=== PATIENT | male | born 1935 | race Caucasian/White ===

== ENCOUNTER → 2017-11-22 14:26 | Outpatient (CLI) | payer BC, SELFPAY ==
[2017-11-22 14:37] LABS: Microscopic, Urine URINE MICROSCOPIC (MICROSCOPIC)
[2017-11-22 15:07] LABS: Basophils # 0.1 K/mm3 (0-0.2); Eosinophils # 0.2 K/mm3 (0.0-0.4); Hematocrit 51.3 % (42.0-52.0); Hemoglobin 17.3 g/dL (14.1-18.0); Lymphocytes # 1.9 K/mm3 (0.7-4.5); Lymphocytes % 26.6 K/mm3 (10-50); Mean Corpuscular HGB Conc 33.6 g/dL (31.8-35.4); Mean Corpuscular Hemoglobin 30.3 pg (27.0-31.2); Mean Corpuscular Volume 90.1 fl (80-94); Mean Platelet Volume 7.1 fl (7.4-10.4); Monocytes # 0.8 K/mm3 (0.1-1.0); Neutrophils # 4.2 K/mm3 (1.8-7.8); Neutrophils % 58.3 % (37.0-80.0); Platelet Count 296 K/mm3 (142-424); Red Cell Distribution Width 12.8 % (11.5-17.5); White Blood Count 7.2 K/mm3 (4.8-10.8)
[2017-11-22 16:08] LABS: Alanine Aminotransferase 35 U/L (12-78); Albumin Level 3.8 gm/dL (3.4-5.0); Albumin/Globulin Ratio 0.9 (1.1-1.8); Alkaline Phosphatase 98 U/L (46-116); Anion Gap 15.8 mEq/L (5-15); Aspartate Amino Transferase 30 U/L (15-37); Bilirubin,Total 0.4 mg/dL (0.2-1.0); Blood Urea Nitrogen 25 mg/dL (7-18); Calcium 8.8 mg/dL (8.5-10.1); Carbon Dioxide 26 mmol/L (21.0-32.0); Chloride 100 mmol/L (98-107); Creatinine,Serum 1.91 mg/dL (0.70-1.30); Estimated Glomerular Filt Rate 34 ml/min (>60); GFR (African American) 41 ML/MIN (>60); Globulin 4.3 gm/dl (1.3-3.2); Glucose 94 mg/dL (74-106); Potassium 3.8 mmoL/L (3.5-5.1); Sodium 138 mmol/L (136-145); Thyroid Stimulating Hormone 4.36 uIU/ml (0.358-3.740); Total Protein,Serum 8.1 gm/dL (6.4-8.2)
[2017-11-22 16:29] LABS: Appearance,Urine CLEAR (Clear); Bilirubin,Urine Negative (Negative); Blood, Urine TRACE-L (Negative); Color,Urine YELLOW (Yellow); Glucose,Urine (UA) Negative (Negative); Ketones,Urine Negative (Negative); Leukocyte Esterase,Urine Negative (Negative); Nitrate,Urine Negative (Negative); PH,Urine 6.5 (5.0-8.5); Protein,Urine TRACE (Negative); Urobilinogen,Urine 0.2 EU/dl (0.2)
[2017-11-22 17:29] LABS: RBC,Urine Occasional #/hpf (0-3)
[2017-11-22 17:30] LABS: Bacteria,Urine Trace /lpf
[2017-11-22 21:10] LABS: Hemoglobin A1C 5.2 % (0.0-7.0)
[2017-11-25 18:26] LABS: Rapid Plasma Reagin Ab Titer Non Reactive (NonRea<1:1); Vitamin B12 527 pg/mL (232-1245)
== END ==
PROVIDERS: PCP Internal Medicine Adolescent Medicine; Visit Provider Internal Medicine Adolescent Medicine
DX: R60.9 Edema, unspecified (principal); G60.9 Hereditary and idiopathic neuropathy, unspecified
CPT/HCPCS: 36415; 80053; 81001; 82607; 83036; 84443; 85025; 86592

== ENCOUNTER → 2017-11-30 09:40 | Outpatient (CLI) | payer BC, SELFPAY ==
[2017-11-30 10:09] LABS: Basophils # 0.1 K/mm3 (0-0.2); Basophils % 1.1 % (0.1-2.0); Eosinophils # 0.2 K/mm3 (0.0-0.4); Eosinophils % 3.4 % (0.1-12.0); Hematocrit 50.6 % (42.0-52.0); Hemoglobin 16.9 g/dL (14.1-18.0); Lymphocytes # 1.7 K/mm3 (0.7-4.5); Lymphocytes % 23.7 K/mm3 (10-50); Mean Corpuscular HGB Conc 33.4 g/dL (31.8-35.4); Mean Corpuscular Hemoglobin 29.9 pg (27.0-31.2); Mean Corpuscular Volume 89.3 fl (80-94); Mean Platelet Volume 6.8 fl (7.4-10.4); Monocytes # 0.6 K/mm3 (0.1-1.0); Monocytes % 8.3 % (1.7-9.3); Neutrophils # 4.5 K/mm3 (1.8-7.8); Neutrophils % 63.6 % (37.0-80.0); Platelet Count 287 K/mm3 (142-424); Red Blood Count 5.67 M/mm3 (4.60-6.20); Red Cell Distribution Width 12.8 % (11.5-17.5); White Blood Count 7.1 K/mm3 (4.8-10.8)
[2017-11-30 11:02] LABS: Alanine Aminotransferase 34 U/L (12-78); Albumin Level 3.9 gm/dL (3.4-5.0); Alkaline Phosphatase 105 U/L (46-116); Anion Gap 12.4 mEq/L (5-15); Aspartate Amino Transferase 27 U/L (15-37); Bilirubin,Total 0.5 mg/dL (0.2-1.0); Blood Urea Nitrogen 15 mg/dL (7-18); Calcium 9.1 mg/dL (8.5-10.1); Carbon Dioxide 28 mmol/L (21.0-32.0); Chloride 101 mmol/L (98-107); Chol/HDL Ratio 4.3 (1-3.5); Cholesterol 222 mg/dL (140-200); Creatinine,Serum 1.16 mg/dL (0.70-1.30); Estimated Glomerular Filt Rate 60 ml/min (>60); GFR (African American) 73 ML/MIN (>60); Glucose 109 mg/dL (74-106); HDL Cholesterol 52 mg/dL (27-67); LDL Cholesterol 140 mg/dL (0-130); Potassium 4.4 mmoL/L (3.5-5.1); Sodium 137 mmol/L (136-145); Total Protein,Serum 7.9 gm/dL (6.4-8.2); Triglycerides 152 mg/dL (30-200); VLDL Cholesterol 30 mg/dL (0-40)
[2017-11-30 11:48] LABS: Creatinine,Serum 1.11 mg/dL (0.70-1.30)
[2017-11-30 13:49] LABS: Collection Time,Urine 24 hours; Creatinine 24 Hour,Urine 1840 mg/24hr (630-2500); Creatinine Clearance Urine 84.5 mL/min (85-125); Creatinine,Urine Random 80 mg/dL (20-320); Patient Height,Urine 73; Patient Weight,Urine 250; Total Protein 24 Hour,Urine 582 mg/24 hr (40-90); Total Protein,Urine Random 25.3 mg/dL (0.0-11.9); Total Volume,Urine 2300 mL (250-2400)
== END ==
PROVIDERS: Visit Provider Internal Medicine Adolescent Medicine
DX: N28.9 Disorder of kidney and ureter, unspecified (principal); E78.01 Familial hypercholesterolemia; I10 Essential (primary) hypertension
CPT/HCPCS: 36415; 80053; 80061; 82575; 84155; 85025

== ENCOUNTER → 2018-06-18 09:03 | Outpatient (CLI) | payer BC, MEDICARE, SELFPAY ==
[2018-06-18 09:31] LABS: Blood Urea Nitrogen 24 mg/dL (7-18); Creatinine,Serum 1.39 mg/dL (0.70-1.30); Estimated Glomerular Filt Rate 49 ml/min (>60); GFR (African American) 59 ML/MIN (>60)
--- NOTE | 2018-06-18 10:21 | CT_ITS ---
CT abdomen wo/w con CLINICAL INDICATION: Left renal mass ITS.REASON: RENAL MASS ORDERING PHYSICIAN: Champ Ellis PATIENT AGE: 82 years No previous exams are available for comparison TECHNIQUE: Axial images obtained without and with contrast with sagittal and coronal reformats. All CT scans at the facility use one or more dose reduction, viz: automated exposure control, ma/kV adjustment per patient size (including targeted exams where dose is matched to indication, i.e. head), or iterative reconstruction technique. PROCEDURE: Oral Contrast: None IV Contrast: 75 mL of Isovue-370. FINDINGS: There are coronary artery calcifications. Lung bases are clear. CT abdomen pelvis performed without and with contrast. Immediate and 10 minute delayed images obtained postcontrast infusion. The liver, gallbladder, spleen, pancreas, and adrenal glands have an unremarkable appearance. There is a hyperdense nodule of the right kidney a 9 mm consistent with a hyperdense cyst. A 4.7 cm isodensity projects off the posterior aspect of the right kidney consistent with a renal cyst. There is an additional cyst projecting off the superior posterior aspect of the right kidney at 9 mm. On the left there is a 1.8 cm isodense nodule superiorly consistent with a cyst and a 1.5 center exophytic isodensity posteriorly consistent with a cyst. In addition, there is a hyperdense nodule projecting off the posterior aspect of the left kidney at 1 cm measuring without significant enhancement may be related to hyperdense cyst. In addition, there is an isodense nodule projecting off of the lower pole the left kidney posteriorly showing heterogeneous contrast enhancement. This measures 1.9 cm. And is suspicious for neoplasm. No evidence of hydronephrosis or renal or ureteral calculi. No intestinal obstruction or free air. The intervening cava has an unremarkable appearance. No retroperitoneal adenopathy. There are a few small lymph nodes. These are less than 1 cm short axis. There is mild nodularity of the right adrenal gland nonspecific. No acute bony findings. IMPRESSION: 1. Solid-appearing 1.9 cm mass projecting off the lower pole left kidney suspicious for neoplasm. 2. Bilateral renal cysts
== END ==
PROVIDERS: Family Provider Family Medicine; PCP Internal Medicine Adolescent Medicine; Visit Provider Internal Medicine
DX: N18.3 Chronic kidney disease, stage 3 (moderate) (principal)
CPT/HCPCS: 36415; 74170; 82565; 84520; Q9967

== ENCOUNTER → 2018-06-25 08:02 | Outpatient (CLI) | payer BC, MEDICARE, SELFPAY ==
[2018-06-25 08:09] LABS: Microscopic, Urine URINE MICROSCOPIC (MICROSCOPIC)
[2018-06-25 08:45] LABS: Basophils # 0.1 K/mm3 (0-0.2); Basophils % 1.1 % (0.1-2.0); Eosinophils # 0.2 K/mm3 (0.0-0.4); Eosinophils % 2.9 % (0.1-12.0); Hematocrit 51.3 % (42.0-52.0); Hemoglobin 16.7 g/dL (14.1-18.0); Lymphocytes # 1.5 K/mm3 (0.7-4.5); Lymphocytes % 21.3 K/mm3 (10-50); Mean Corpuscular HGB Conc 32.6 g/dL (31.8-35.4); Mean Corpuscular Hemoglobin 29.4 pg (27.0-31.2); Mean Corpuscular Volume 90.4 fl (80-94); Mean Platelet Volume 6.8 fl (7.4-10.4); Monocytes # 0.7 K/mm3 (0.1-1.0); Monocytes % 10.2 % (1.7-9.3); Neutrophils # 4.5 K/mm3 (1.8-7.8); Neutrophils % 64.5 % (37.0-80.0); Platelet Count 290 K/mm3 (142-424); Red Blood Count 5.67 M/mm3 (4.60-6.20); Red Cell Distribution Width 13.3 % (11.5-17.5)
[2018-06-25 09:21] LABS: Appearance,Urine CLEAR (Clear); Bilirubin,Urine Negative (Negative); Blood, Urine Negative (Negative); Color,Urine YELLOW (Yellow); Glucose,Urine (UA) Negative (Negative); Ketones,Urine Negative (Negative); Leukocyte Esterase,Urine Negative (Negative); Nitrate,Urine Negative (Negative); Protein,Urine 1+ (Negative); Specific Gravity, Urine 1.025 (1.005-1.030); Urobilinogen,Urine 0.2 EU/dl (0.2)
[2018-06-25 09:28] LABS: Creatinine,Urine Random 277 mg/dL (20-320); Total Protein,Urine Random 61.7 mg/dL (0.0-11.9)
[2018-06-25 09:31] LABS: Bacteria,Urine 1+ /lpf; Squamous Epithelial Cell,Urine Occasional #/hpf (0-5); WBC,Urine Occasional #/hpf (0-3)
[2018-06-25 09:44] LABS: Albumin Level 3.6 gm/dL (3.4-5.0); Anion Gap 12.5 mEq/L (5-15); Blood Urea Nitrogen 25 mg/dL (7-18); Carbon Dioxide 27 mmol/L (21.0-32.0); Chloride 107 mmol/L (98-107); Creatinine,Serum 1.16 mg/dL (0.70-1.30); Estimated Glomerular Filt Rate 60 ml/min (>60); GFR (African American) 73 ML/MIN (>60); Glucose 101 mg/dL (74-106); Phosphorous 3.6 mg/dL (2.4-4.9); Potassium 4.5 mmoL/L (3.5-5.1); Sodium 142 mmol/L (136-145)
[2018-06-26 08:52] LABS: Vitamin D 25 Hydroxy 31.6 ng/mL (30.0-100.0)
[2018-06-27 13:07] LABS: Parathyroid Hormone Intact 42 pg/mL (15-65)
== END ==
PROVIDERS: PCP Internal Medicine Adolescent Medicine; Visit Provider Internal Medicine
DX: R80.9 Proteinuria, unspecified (principal)
CPT/HCPCS: 36415; 80069; 81001; 82570; 82652; 83970; 84155; 85025

== ENCOUNTER → 2018-06-29 12:38 | Outpatient (CLI) | payer BC, SELFPAY ==
--- NOTE | 2018-06-29 12:47 | XR_ITS ---
XR chest 2V HISTORY: ITS.REASON: LT KIDNEY MASS ORDERING PHYSICIAN: Kelvin Mcallister MD PATIENT AGE: 82 years COMPARISON: None FINDINGS: Unremarkable cardiovascular structures. No lobar consolidation or collapse is evident. There are mild atelectatic or fibrotic changes in the left lung base. There is a faint nodular opacity in the left suprahilar region at 6 mm and may be due to a granuloma. The remaining lungs are clear. No acute bony anomalies. IMPRESSION: 1. No acute finding. 2. Left suprahilar nodule possibly related to granuloma or overlapping vessel. Consider follow-up to confirm stability in this patient with a renal mass
== END ==
PROVIDERS: PCP Internal Medicine Adolescent Medicine; Visit Provider Internal Medicine Adolescent Medicine
DX: N28.89 Other specified disorders of kidney and ureter (principal)
CPT/HCPCS: 71046

== ENCOUNTER → 2019-01-17 08:54 | Outpatient (CLI) | payer BC, SELFPAY ==
[2019-01-17 09:53] LABS: Basophils # 0.1 K/mm3 (0-0.2); Basophils % 1.3 % (0.1-2.0); Eosinophils # 0.2 K/mm3 (0.0-0.4); Eosinophils % 3.4 % (0.1-12.0); Hematocrit 50.3 % (42.0-52.0); Hemoglobin 16.6 g/dL (14.1-18.0); Lymphocytes # 1.5 K/mm3 (0.7-4.5); Lymphocytes % 22.4 % (10-50); Mean Corpuscular Hemoglobin 29.4 pg (27.0-31.2); Mean Corpuscular Volume 89.3 fl (80-94); Mean Platelet Volume 6.8 fl (7.4-10.4); Monocytes # 0.6 K/mm3 (0.1-1.0); Monocytes % 9.5 % (1.7-9.3); Neutrophils # 4.1 K/mm3 (1.8-7.8); Neutrophils % 63.4 % (37.0-80.0); Platelet Count 265 K/mm3 (142-424); Red Blood Count 5.64 M/mm3 (4.60-6.20); Red Cell Distribution Width 13.3 % (11.5-17.5); White Blood Count 6.5 K/mm3 (4.8-10.8)
[2019-01-17 11:11] LABS: Alanine Aminotransferase 29 U/L (12-78); Albumin Level 3.8 gm/dL (3.4-5.0); Alkaline Phosphatase 108 U/L (46-116); Anion Gap 15.2 mEq/L (5-15); Aspartate Amino Transferase 23 U/L (15-37); Bilirubin,Total 0.8 mg/dL (0.2-1.0); Blood Urea Nitrogen 21 mg/dL (7-18); Calcium 8.7 mg/dL (8.5-10.1); Carbon Dioxide 25 mmol/L (21.0-32.0); Chloride 106 mmol/L (98-107); Creatinine,Serum 1.21 mg/dL (0.70-1.30); Estimated Glomerular Filt Rate 57 ml/min (>60); GFR (African American) 69 ML/MIN (>60); Globulin 3.8 gm/dl (1.3-3.2); Glucose 102 mg/dL (74-106); Lactate Dehydrogenase 225 U/L (82-234); Magnesium 2.3 mg/dL (1.4-2.2); Potassium 4.2 mmoL/L (3.5-5.1); Sodium 142 mmol/L (136-145); Total Protein,Serum 7.6 gm/dL (6.4-8.2)
== END ==
PROVIDERS: Visit Provider Internal Medicine Medical Oncology
DX: N28.89 Other specified disorders of kidney and ureter (principal)
CPT/HCPCS: 36415; 80053; 83615; 83735; 85025

== ENCOUNTER → 2019-01-18 10:00 | Outpatient (CLI) | payer BC, SELFPAY ==
--- NOTE | 2019-01-18 10:09 | CT_ITS ---
CT abdomen pelvis wo/w con CLINICAL INDICATION: Follow-up renal mass ITS.REASON: RENAL MASS ORDERING PHYSICIAN: Kelvin Mcallister MD PATIENT AGE: 83 years COMPARISON: None TECHNIQUE: Axial images obtained without and with contrast with sagittal and coronal reformats. All CT scans at the facility use one or more dose reduction, viz: automated exposure control, ma/kV adjustment per patient size (including targeted exams where dose is matched to indication, i.e. head), or iterative reconstruction technique. PROCEDURE: Oral Contrast: None IV Contrast: 75 mL of Omnipaque 350. FINDINGS: This report was delayed waiting appropriate surgical history which is not been made available as of the reading. Radiology requisition mentions that the patient has had a prior surgery on the left kidney . Please correlate with patient's surgical history. No acute finding in the lung bases. Coronary artery calcifications are present and there is thickening of the distal esophagus consistent with reflux esophagitis with small amount air in the distal esophagus. The liver, spleen, adrenal glands, and pancreas have an unremarkable appearance. Right kidney: 4.7 cm renal cyst noted posteriorly. Hyperdense nodule is present in the right kidney superiorly at 1 cm. On the left there is an isodense nodule in the superior pole which measures 2 cm consistent with a renal cyst and exophytic nodule in the mid aspect of the left kidney laterally a 1 cm also consistent with a cyst and a solid appearing nodule in the lower portion of left kidney posteriorly measuring 17 mm suspicious for neoplasm.. Previously this showed more contrast enhancement and was more dense than on today's exam. There is some minimal stranding of the perinephric fat at this area. No periaortic adenopathy. The renal vein has an unremarkable appearance on the left. No pelvic mass abnormal fluid collection or focal inflammatory change evident. There is a small left inguinal hernia which contains fat. No acute bony findings. IMPRESSION: 1. Reported delayed weight on specific surgical history which has not been made available. 2. Solid-appearing left renal mass on the lower pole is slightly smaller than when compared to the previous study at 1.5 x 1.5 cm in the axial plane previously 1.9 x 1.7 cm. There is some minimal stranding of the perinephric renal at this area. 3. Bilateral renal cysts.
--- NOTE | 2019-01-18 11:15 | CT_ITS ---
CT chest wo/w con HISTORY: Left renal mass ITS.REASON: RENAL MASS ORDERING PHYSICIAN: Kelvin Mcallister MD PATIENT AGE: 83 years COMPARISON: None Technique: Axial images obtained. Sagittal, and coronal reformatted images are also generated and reviewed. All CT scans at the facility use one or more dose reduction, viz: automated exposure control, ma/kV adjustment per patient size (including targeted exams where dose is matched to indication, i.e. head), or iterative reconstruction technique. Examination performed without and with contrast. 75 mL Omnipaque 350 utilized IV. FINDINGS: Scattered small nodes are present in the axilla. Atherosclerotic changes involve the thoracic aorta and great vessels with calcification noted. Dense coronary artery calcification and/or stents noted. Normal heart size without pericardial effusion. There is a 10 x 7 mm noncalcified nodule in the right upper lobe posteriorly series 4 #20. These nodules well-circumscribed. A calcified nodule is present in the right lower lobe along major fissure. There is a 1.5 x 0.9 cm lobulated nodule in the right perihilar region which abuts the major fissure best seen on series 8 image #44. Possibly related to a fissural lymph node. Suggest 3 month follow-up for confirmation in this patient with history of renal mass. Remaining lungs are clear. No evidence of aortic aneurysm or dissection. No central pulmonary embolus. No acute bony findings. There are mild degenerative changes in the spine. There is mild thickening of the distal esophagus which could be due to esophagitis. IMPRESSION: 1. 10 x 7 mm noncalcified right upper lobe nodule and 1.5 x 0.9 cm lobulated nodule in the right perihilar region abutting the major fissure . Suggest 3 month follow-up to confirm stability. PET/CT may also be of further value. 2. Coronary artery disease. 3. Otherwise negative CT chest
== END ==
PROVIDERS: PCP Internal Medicine Adolescent Medicine; Visit Provider Internal Medicine Adolescent Medicine
DX: N28.89 Other specified disorders of kidney and ureter (principal)
CPT/HCPCS: 71270; 74178

== ENCOUNTER → 2019-07-13 08:46 | Outpatient (CLI) | payer BC, SELFPAY ==
[2019-07-13 09:42] LABS: Basophils # 0.1 K/mm3 (0-0.2); Basophils % 0.9 % (0.1-2.0); Eosinophils # 0.2 K/mm3 (0.0-0.4); Eosinophils % 2.7 % (0.1-12.0); Hematocrit 49.4 % (42.0-52.0); Lymphocytes # 1.3 K/mm3 (0.7-4.5); Lymphocytes % 20.2 % (10-50); Mean Corpuscular HGB Conc 32.4 g/dL (31.8-35.4); Mean Corpuscular Hemoglobin 30.2 pg (27.0-31.2); Mean Corpuscular Volume 93.4 fl (80-94); Mean Platelet Volume 7.2 fl (7.4-10.4); Monocytes # 0.7 K/mm3 (0.1-1.0); Monocytes % 10.3 % (1.7-9.3); Neutrophils # 4.4 K/mm3 (1.8-7.8); Neutrophils % 65.9 % (37.0-80.0); Platelet Count 278 K/mm3 (142-424); Red Blood Count 5.29 M/mm3 (4.60-6.20); White Blood Count 6.6 K/mm3 (4.8-10.8)
[2019-07-13 12:05] LABS: Alanine Aminotransferase 24 U/L (12-78); Albumin Level 3.5 gm/dL (3.4-5.0); Alkaline Phosphatase 108 U/L (46-116); Anion Gap 15.9 mEq/L (5-15); Aspartate Amino Transferase 18 U/L (15-37); Bilirubin,Total 0.7 mg/dL (0.2-1.0); Blood Urea Nitrogen 14 mg/dL (7-18); Calcium 9.2 mg/dL (8.5-10.1); Carbon Dioxide 26 mmol/L (21.0-32.0); Chloride 106 mmol/L (98-107); Chol/HDL Ratio 5.2 (1-3.5); Cholesterol 224 mg/dL (140-200); Creatinine,Serum 1.13 mg/dL (0.70-1.30); Estimated Glomerular Filt Rate 62 ml/min (>60); Free Thyroxine Index 3.6 ug/dL (5.93-13.13); GFR (African American) 75 ML/MIN (>60); Globulin 3.5 gm/dl (1.3-3.2); Glucose 96 mg/dL (74-106); HDL Cholesterol 43 mg/dL (27-67); LDL Cholesterol 150 mg/dL (0-130); Potassium 4.9 mmoL/L (3.5-5.1); Sodium 143 mmol/L (136-145); T4 (Thyroxine) 10.2 ug/dl (4.7-13.3); Thyroid Stimulating Hormone 1.89 uIU/ml (0.358-3.740); Triglycerides 156 mg/dL (30-200); Triiodothryronine (T3) Uptake 35 % (31-39); VLDL Cholesterol 31 mg/dL (0-40)
[2019-07-16 09:27] LABS: Vitamin B12 303 pg/mL (232-1245)
== END ==
PROVIDERS: Visit Provider Internal Medicine Adolescent Medicine
DX: E78.01 Familial hypercholesterolemia (principal); G60.9 Hereditary and idiopathic neuropathy, unspecified; Z85.528 Personal history of other malignant neoplasm of kidney
CPT/HCPCS: 36415; 80053; 80061; 82607; 84436; 84443; 84479; 85025

== ENCOUNTER → 2019-07-19 09:58 | Outpatient (CLI) | payer BC, SELFPAY ==
--- NOTE | 2019-07-19 10:00 | CT_ITS ---
PROCEDURE: CT SOFT TISSUE NECK W CON CLINICAL HISTORY: NECK MASS, HX RENAL CANCER COMPARISON: No exams were available for comparison TECHNIQUE: Oral Contrast: 75ml Optiray 350 IV Contrast: None Axial images obtained with sagittal and coronal reformats. All CT scans at the facility use one or more dose reduction, viz: automated exposure control, ma/kV adjustment per patient size (including targeted exams where dose is matched to indication, i.e. head), or iterative reconstruction technique. FINDINGS: There are scattered small cervical lymph nodes. No dominant adenopathy. The nasopharynx, oropharynx, hypopharynx are unremarkable. Unremarkable appearing epiglottis. There is retropharyngeal location of the left external carotid artery causing some indentation on the posterior aspect of the hypopharynx. A BB is placed there is a gastric air corresponding to the palpable abnormality. At this region there is a 6.6 x 1.7 x 5.9cm lipoma. Small nodules are noted in the thyroid gland.. Degenerative changes cervical spine. IMPRESSION: [place] abnormality in the left neck corresponds to a lipoma Dictated by: Gil Mcfarlane MD 07/21/2019 08:52 Electronically signed by Gil Mcfarlane MD in [place] 07/21/2019 08:52
== END ==
PROVIDERS: PCP Internal Medicine Adolescent Medicine; Visit Provider Internal Medicine Adolescent Medicine
DX: R22.1 Localized swelling, mass and lump, neck (principal); Z85.528 Personal history of other malignant neoplasm of kidney
CPT/HCPCS: 70491; Q9967

== ENCOUNTER → 2019-08-16 10:49 | Outpatient (CLI) | payer BC, SELFPAY ==
[2019-08-16 12:23] LABS: Blood Urea Nitrogen 22 mg/dL (7-18); Creatinine,Serum 1.25 mg/dL (0.70-1.30); Estimated Glomerular Filt Rate 55 ml/min (>60); GFR (African American) 67 ML/MIN (>60)
== END ==
PROVIDERS: Visit Provider Internal Medicine Adolescent Medicine
DX: Z85.528 Personal history of other malignant neoplasm of kidney (principal)
CPT/HCPCS: 36415; 82565; 84520

== ENCOUNTER → 2019-08-19 09:34 | Outpatient (CLI) | payer BC, SELFPAY ==
--- NOTE | 2019-08-19 09:39 | CT_ITS ---
PROCEDURE: CT CHEST W CON CLINCAL INDICATION: HX RENAL CA Follow-up renal cell carcinoma the COMPARISON: ABDWW CT abdomen wo/w con from 06/18/[address] chest wo/w con from 01/18/2019 CT ABDOMEN PELVIS WO/W CON from 08/19/2019 TECHNIQUE: IV Contrast: 75ml Optiray 350 Axial images obtained with sagittal and coronal reformats. All CT scans at the facility use one or more dose reduction, viz: automated exposure control, ma/kV adjustment per patient size (including targeted exams where dose is matched to indication, i.e. head), or iterative reconstruction technique. FINDINGS: HEART,AORTA,PULMONARY ARTERIES extensive coronary artery calcification is noted. MEDIASTINAL AND HILAR STRUCTURES: No mediastinal or hilar mass evident. No dominant adenopathy. LUNGS: There is a stable 7 mm nodule in the posterior segment of the right upper lobe. This may contain a small central calcification. There is a stable 13 x 8 mm nodular opacity in the right perihilar region. No new nodules are evident. There are some faint small 1-2 mm opacities in the right middle lobe probably not significantly changed PLEURAL SPACES: No significant effusion. No evidence of pneumothorax. BONY STRUCTURES: No acute bony abnormalities apparent. LYMPH NODES: No enlarged lymph nodes evident. UPPER ABDOMEN: Please see abdomen CT report ADDITIONAL FINDINGS: No other significant abnormalities. IMPRESSION: Stable right upper lobe and right perihilar nodules. Possibly related to old granulomatous disease and a lymph node in the right perihilar region. Continued follow-up recommended. No new nodules evident. Extensive coronary artery calcification Dictated by: Gil Mcfarlane MD 08/19/2019 13:53 Electronically signed by Gil Mcfarlane MD in [facility] 08/19/2019 13:53
--- NOTE | 2019-08-19 09:40 | CT_ITS ---
PROCEDURE: CT ABDOMEN PELVIS WO/W CON CLINICAL INDICATION: HX RENAL CANCER Follow-up renal cell carcinoma COMPARISON: ABDWW CT abdomen wo/w con from 06/18/[address] abdomen pelvis wo/w con from 01/18/2019 TECHNIQUE: IV Contrast: 75ML OPTIRAY 350 Oral Contrast 450ml Redicat Axial images obtained with sagittal and coronal reformats. All CT scans at the facility use one or more dose reduction, viz: automated exposure control, ma/kV adjustment per patient size (including targeted exams where dose is matched to indication, i.e. head), or iterative reconstruction technique. FINDINGS: LOWER THORAX: Please see chest CT report ABDOMEN & PELVIS: The liver, spleen, pancreas, and adrenal glands have an unremarkable appearance. There are bilateral renal cysts largest on the right measuring up to 4.9 cm. In the lower pole of the left kidney, there is a complex lesion having both fat and soft tissue density with a thin peripheral area density noted. This measures 3 x 1.9 cm previously 3.3 x 2.2 cm. This may represent some postsurgical change as there is a given history of prior surgery on the left kidney. Previously on 06/18/2018 there was a solid nodule at this area. The central soft tissue component of this lesion appears somewhat smaller than when compared to the previous exam of 01/18/2019. No retroperitoneal adenopathy. There is a small umbilical hernia which contains fat. There is a mild amount of retained colonic feces. The prostate is enlarged at 6.4 cm. There are mild degenerative changes in the lumbar spine. IMPRESSION: 1. Complex lesion involving the lower pole of the left kidney posteriorly slightly less apparent compared to the previous study. The central soft tissue component is also slightly less apparent. This may represent some postsurgical changes. Please correlate with surgical history. 2. Enlarged prostate. 3. Otherwise negative CT of the abdomen and pelvis other than small bilateral renal cysts and mild amount of retained colonic feces. Dictated by: Gil Mcfarlane MD 08/19/2019 14:05 Electronically signed by Gil Mcfarlane MD in [facility] 08/19/2019 14:05
== END ==
PROVIDERS: PCP Internal Medicine Adolescent Medicine; Visit Provider Internal Medicine Adolescent Medicine
DX: Z85.528 Personal history of other malignant neoplasm of kidney (principal)
CPT/HCPCS: 71260; 74178; Q9967

== ENCOUNTER → 2020-06-10 13:14 | Outpatient (CLI) | payer BC, SELFPAY ==
[2020-06-10 14:26] LABS: Basophils # 0.1 K/mm3 (0-0.2); Basophils % 1.2 % (0.1-2.0); Eosinophils # 0.2 K/mm3 (0.0-0.4); Eosinophils % 2.9 % (0.1-12.0); Hemoglobin 16.9 g/dL (14.1-18.0); Lymphocytes # 1.7 K/mm3 (0.7-4.5); Lymphocytes % 22.7 % (10-50); Mean Corpuscular HGB Conc 35.3 g/dL (31.8-35.4); Mean Corpuscular Hemoglobin 30.9 pg (27.0-31.2); Mean Corpuscular Volume 87.5 fl (80-94); Mean Platelet Volume 7.3 fl (7.4-10.4); Monocytes # 0.9 K/mm3 (0.1-1.0); Monocytes % 11.2 % (1.7-9.3); Neutrophils # 4.7 K/mm3 (1.8-7.8); Platelet Count 275 K/mm3 (142-424); Red Blood Count 5.48 M/mm3 (4.60-6.20); Red Cell Distribution Width 13.5 % (11.5-17.5); White Blood Count 7.6 K/mm3 (4.8-10.8)
[2020-06-10 16:15] LABS: Chloride 105 mmol/L (98-107); Potassium 4.7 mmoL/L (3.5-5.1); Sodium 139 mmol/L (136-145)
[2020-06-10 16:17] LABS: Blood Urea Nitrogen 18 mg/dl (9-20); Estimated Glomerular Filt Rate 64 ml/min (>60); GFR (African American) 77 ML/MIN (>60)
[2020-06-10 16:18] LABS: Alanine Aminotransferase 16 U/L (12-78); Albumin Level 3.9 g/dl (3.5-5.0); Albumin/Globulin Ratio 1.3 (1.1-1.8); Alkaline Phosphatase 84 U/L (38-126); Anion Gap 11.7 mEq/L (5-15); Aspartate Amino Transferase 29 U/L (17-59); Bilirubin,Total 0.6 mg/dl (0.2-1.3); Calcium 9.2 mg/dl (8.4-10.2); Carbon Dioxide 27 mmol/L (22.0-30.0); Chol/HDL Ratio 4.3 (1-3.5); Cholesterol 211 mg/dl (140-200); Glucose 86 mg/dl (74-100); HDL Cholesterol 49 mg/dl (40-60); Total Protein,Serum 6.9 g/dl (6.3-8.2); Triglycerides 117 mg/dl (30-150); VLDL Cholesterol 23 mg/dL (0-40)
[2020-06-10 16:30] LABS: Direct LDL Cholesterol 141.45 mg/dL (100-129)
[2020-06-10 16:49] LABS: Thyroid Stimulating Hormone 2.37 uIU/mL (0.465-4.68)
== END ==
PROVIDERS: Visit Provider Internal Medicine Adolescent Medicine
DX: E78.01 Familial hypercholesterolemia (principal); G60.9 Hereditary and idiopathic neuropathy, unspecified
CPT/HCPCS: 36415; 80053; 80061; 84443; 85025

== ENCOUNTER 2020-10-14 18:00 | Inpatient (IN) | payer MEDICARE, BC, SELFPAY ==
[2020-10-14] VITALS (18 sets, daily range): BP systolic 108–139; BP diastolic 53–76; PULSE 66–84; RESP 14–16; TEMP 36.6–36.9; O2SAT 90–98; BMI 31.2; BMI 33.9; BMI 33.7
--- NOTE | 2020-10-14 | IR_ITS ---
APPROVED REPORT Patient Location: Emergent Felt Hat Steamer: SINGH Elkins RT (R) PROCEDURES Right heart catheterization Left heart catheterization Left ventriculogram Selective coronary angiogram Drug-eluting stent deployment to the proximal and mid LAD Drug-eluting stent deployment to the distal LAD Drug-eluting stent deployment to the first diagonal artery Catheter placement in the pulmonary artery Bilateral pulmonary artery angiogram INDICATION Acute anterior ST elevation myocardial infarction, Coronary artery disease, Hypoxemia, Acidemia, Suspected pulmonary embolism, Syncope Informed consent was obtained prior to the procedure. COMPLICATIONS none Estimated Blood Loss: less than 10 mls TECHNIQUE One percent lidocaine used to anesthetize the right anterior aspect of the wrist. The right radial artery was accessed via the Seldinger technique. A 6 [place] sheath was placed in the right radial artery. 2.5 mg of verapamil, 800 mcg of nitroglycerin, 1mg Lidocaine and 5000 U Heparin were given through the arterial sheath. The [place] catheter was used to perform left heart catheterization left ventriculogram and selective coronary angiogram. Because of the wide QRS which was not classic for a STEMI but looks more like an acidemic EKG a blood gas was immediately obtained from the right radial artery following sheath placement. The initial blood gas was reported and interpreted however close attention was not paid to the electrolytes down below which in retrospect likely was an abnormally obtain dilute arterial blood gas as evidenced by a sodium of 103. Despite the spurious blood gas this was still acted upon and the patient was initially felt to have a metabolic acidosis. Angiography demonstrated a chronically occluded right coronary artery with severe disease throughout the LAD. An EBU 3.75 guide catheter was placed in the left main artery and a Choice PT wire was placed distally. A 2.5 x 12 mm balloon was used to predilate the proximal and mid LAD and a 3.5 x 38 mm resolute [place] stent was deployed at 20 scotty reducing the stenosis. An additional 3.5 x 18 mm resolute [place] stent was then deployed distal to this yet still overlapping it at 18 scotty. The balloon was brought back and deployed at 20 scotty. A wire was then placed in the first diagonal artery which was jailed and a 2 mm balloon was used to open the jailed first diagonal artery. A 2.5 x 12 mm resolute Hai stent was deployed at 24 scotty in the ostial first diagonal artery opening the occluded vessel and restoring flow. A 3.5 x 18 mm balloon was then deployed at 20 scotty adjacent to the first diagonal artery to make sure no struts were encroaching upon the LAD. A Choice PT floppy wire was placed distally in the LAD and a 2.75 x 15 mm resolute [place] stent was deployed at 18 scotty in the distal LAD reducing the severe corkscrew stenosis to 0%. After achieving excellent angiographic results it was decided to repeat the blood gas. Blood gas came back at 7.3 . This demonstrated a significant interval improvement from the first blood gas not recognized as being inaccurate. Given the wide QRS a pulmonary embolism was considered especially with the significant degree of hypoxemia. 1% lidocaine was used anesthetize the right groin and the right femoral vein was accessed via the Salinger technique and a 5 [place] sheath was placed in the right femoral vein. Under fluoroscopic guidance an angled pigtail catheter was placed in the pulmonary artery where angiography was performed demonstrated widely patent pulmonary arteries. A hemodynamic study was then performed in the pulmonary artery right ventricle right atrium. At the end of this procedure and Sigifredo alcala
--- NOTE | 2020-10-14 18:24 | ECG_ITS ---
APPROVED REPORT Exam: Resting ECG HR:68 bpm ECG Measurements Heart Rate 68 AXES AR 248 P 87 QRSd 136 QRS 38 QT 418 T 105 QTc 444 Conclusion Sinus rhythm with 1st degree AV block Nonspecific intraventricular block Cannot rule out Anteroseptal infarct, age undetermined T wave abnormality, consider lateral ischemia Abnormal ECG Electronically signed by : Kelvin Mcallister, 10/15/2020 21:16:42
--- NOTE | 2020-10-14 18:26 | PC.NURSE ---
STEMI alert called at this time
--- NOTE | 2020-10-14 18:35 | XR_ITS ---
PROCEDURE: XR CHEST PORTABLE CLINICAL HISTORY: syncope Chest pain COMPARISON: CR CXR2V XR chest 2V from 06/29/[address] CHEST W CON from 08/19/2019 FINDINGS: There are low lung volumes with mild cardiomegaly. The lungs are clear without infiltrates, suspicious nodules, or pleural effusions. No acute bony abnormalities. IMPRESSION: Low lung volumes otherwise negative Dictated by: Gil Mcfarlane MD 10/15/2020 05:49 Gil Mcfarlane MD in [place] 10/15/2020 05:49
--- NOTE | 2020-10-14 18:35 | [facility].EDGENADL ---
ED Disposition Clinical Impression: Abnormal EKG Syncope Qualifiers: Syncope type: unspecified Qualified Code(s): R55 - Syncope and collapse Disposition: Still a Patient Condition on Discharge: Fair Referrals: Kelvin Mcallister MD [Primary Care Provider] - - Critical Care Critical Care Time: No Attestation: On 10/14/20, the high probability of a clinically significant, sudden or life threatening deterioration of the following system(s) required my full and direct attention, intervention and personal management. The time I documented below is in addition to time spent performing reported procedures but includes the following listed in this critical care notation. Medical Decision Making - Lux Inquiry Pt receiving controlled substance: No - Lab Data Lab Results 10/14/20 18:25: WBC 11.8 H, RBC 5.76, Hgb 17.2, Hct 52.3 H, MCV 90.8, MCH 30.0, MCHC 33.0, RDW 13.3, Plt Count 276, MPV 6.8 L, Neut % (Auto) 83.2 H, Lymph % (Auto) 8.0 L, [place] % (Auto) 7.1, Eos % (Auto) 1.1, Baso % (Auto) 0.6, Neut # (Auto) 9.8 H, Lymph # (Auto) 0.9, [place] # (Auto) 0.8, Eos # (Auto) 0.1, Baso # (Auto) 0.1 10/14/20 18:25: Sodium 140, Potassium 4.0, Chloride 105, Carbon Dioxide 29, Anion Gap 10.0, BUN 27 H, Creatinine 1.20, Estimated Creat Clear 73, Estimated GFR 58 L, Est GFR ( Amer) 70, Glucose 131 H, Calcium 9.7 Result diagrams: 10/14/20 18:25 10/14/20 18:25 Orders (Tests/Meds): ED MEDICATIONS Discontinued Medications Generic Name Dose Route Start Last Admin Trade Name Freq PRN Reason Stop Dose Admin Heparin Sodium (Porcine) 11,300 unit 10/14/20 18:38 Heparin Sodium 5,000 Unit/Ml Vial 100 unit/kg (44602 unit) 10/14/20 18:39 IV ONCE ONE ORDERS Category Date Time Status XR chest portable Stat Exams 10/14/20 18:35 Taken Basic Metabolic Panel Stat Lab 10/14/20 18:25 Results Covid-19 IgG/IgM ([facility]) Stat Lab 10/14/20 18:25 Received PT/INR [Prothrombin Time INR] Stat Lab 10/14/20 18:25 Received Troponin I Q3H Lab 10/14/20 21:45 Ordered Troponin I Q3H Lab 10/15/20 00:45 Ordered Troponin I Stat Lab 10/14/20 18:25 Results - ECG Data Tracing #1 EKG interpreted by Devon Brady MD: Rhythm: sinus Rate: 68 [place]: normal Ectopy: none Conduction: First-degree AV block ST Segment Changes: Elevation in anterior septal leads and slight depression in the lateral leads. T Wave Changes: Inversion in leads I and aVL Q Waves: Septal/anterior No old EKGs for comparison - Physician Consults Physician Consulted: Ary Time: 18:53 Reason -: Admission Comment/Response: Agrees to admit the patient to the hospital. We discussed the patient's clinical information, including history, exam, laboratory and radiology results and ED course. Per hospital procedure, I will write temporary bridge inpatient orders on the patient. Specific orders requested by the admitting physician: Per cardiology Medical Decision Narrative: EKG sent immediately to Dr. Joe. He reviewed and requests for new alert. There are no old EKGs for comparison. General Adult HPI - General Stated complaint: dizziness Time Seen by Provider: 10/14/20 18:36 - History of Present Illness HPI narrative: Patient says he was just sitting around a couple of hours ago when he got sweaty and nauseated and began vomiting and had a syncopal episode. He says he was not having chest pain or shortness of breath at the time and is not having any chest pain or shortness of breath now. He says he feels good right now. He is not nauseated. His daughter says that after he passed out he came to fairly quickly and family laid him down on the ground. They let him lay there until daughter arrived. He tried to get up but got dizzy again and therefore was brought here. He has a prior history of a slight heart attack 20+ years ago. He has seen Dr. Acosta. He has a prior history of renal cancer which is now in remission. - Related
[2020-10-14 18:49] LABS: Blood Urea Nitrogen 27 mg/dl (9-20); Calcium 9.7 mg/dl (8.4-10.2); Carbon Dioxide 29 mmol/L (22.0-30.0); Chloride 105 mmol/L (98-107); Creatinine Clearance Estimated 73 mL/min (50-200); Estimated Glomerular Filt Rate 58 ml/min (>60); GFR (African American) 70 ML/MIN (>60); Glucose 131 mg/dl (74-100); Sodium 140 mmol/L (136-145)
--- NOTE | 2020-10-14 18:49 | PC.NURSE ---
AFR[place] CARTER speaking with Dr. Mcallister
[2020-10-14 18:52] LABS: Basophils # 0.1 K/mm3 (0-0.2); Basophils % 0.6 % (0.1-2.0); Eosinophils # 0.1 K/mm3 (0.0-0.4); Eosinophils % 1.1 % (0.1-12.0); Hematocrit 52.3 % (42.0-52.0); Hemoglobin 17.2 g/dL (14.1-18.0); Lymphocytes # 0.9 K/mm3 (0.7-4.5); Mean Corpuscular Volume 90.8 fl (80-94); Mean Platelet Volume 6.8 fl (7.4-10.4); Monocytes # 0.8 K/mm3 (0.1-1.0); Monocytes % 7.1 % (1.7-9.3); Neutrophils # 9.8 K/mm3 (1.8-7.8); Neutrophils % 83.2 % (37.0-80.0); Platelet Count 276 K/mm3 (142-424); Red Blood Count 5.76 M/mm3 (4.60-6.20); Red Cell Distribution Width 13.3 % (11.5-17.5); White Blood Count 11.8 K/mm3 (4.8-10.8)
[2020-10-14 18:53] LABS: INR 0.94 (0.9-1.1); Prothrombin Time 10.5 seconds (9.4-11.8)
[2020-10-14 18:55] LABS: Troponin I 0.02 ng/ml (0.00-0.034)
--- NOTE | 2020-10-14 19:00 | PC.NURSE ---
Pt to medical lab technologist at this time accompanied by LILIYA Sands on [facility]
--- NOTE | 2020-10-14 19:01 | PC.NURSE ---
pt to ear mold laboratory technician, transported per LILIYA Sands
[2020-10-14 19:09] LABS: Coronavirus 19 IgG Antibody Negative (Negative); Coronavirus 19 IgM Antibody Negative (Negative)
--- NOTE | 2020-10-14 19:12 | PC.NURSE ---
Pt presents to ED c/o dizziness and syncopal episode and nausea. Daughter advises he fell out of his chair and was only out for a few moments. EKG was obtained and taken immediately to Dr. Brady who sent the EKG to Dr. Joe and he was paged at 182. I spoke with Dr. Joe at 182 and explained the patient to Dr. Joe and he advised at this he was calling this patient a STEMI and to call the team in. Notified Loni to page STEMI alert overhead. House notified. Pt prepped for dye lab technician and consent was signed by daughter and procedure was explained.
--- NOTE | 2020-10-14 19:21 | PC.NURSE ---
PT unsure of medications and daughter will have to go get list of current medications. Med Rec not completed
[2020-10-14 20:23] LABS: ABG Base Excess -14.1 mmol/L (-2.4-2.3); ABG HCO3 15.1 mmhg (22.0-26.0); ABG Oxygen Saturation 91 % (90-100); ABG PO2 56.9 mmhg (80-100); ABG TCO2 16.6 mmhg (23-27)
[2020-10-14 20:24] LABS: ABG Base Excess 0.1 mmol/L (-2.4-2.3); ABG HCO3 26.2 mmhg (22.0-26.0); ABG Oxygen Saturation 95 % (90-100); ABG PH 7.32 mmol/L (7.35-7.45); ABG PO2 78.1 mmhg (80-100); ABG TCO2 27.8 mmhg (23-27)
[2020-10-14 20:24] LABS: Oxygen 6LPM %; Source A-LINE
[2020-10-14 20:25] LABS: Oxygen 6LPM %
[2020-10-14 20:25] LABS: ABG PH 7.13 mmol/L (7.35-7.45)
[2020-10-14 20:26] LABS: Source A-LINE
--- NOTE | 2020-10-14 20:40 | ECG_ITS ---
APPROVED REPORT Exam: Resting ECG HR:72 bpm ECG Measurements Heart Rate 72 AXES FL 270 P 82 QRSd 140 QRS 68 QT 424 T 111 QTc 464 Conclusion Sinus rhythm with 1st degree AV block Nonspecific intraventricular block Cannot rule out Septal infarct, age undetermined T wave abnormality, consider inferior ischemia Abnormal ECG Electronically signed by : Kelvin Mcallister, 10/15/2020 21:16:26
--- NOTE | 2020-10-14 21:17 | PC.NURSE ---
Received report from [place] RN @ this time.
--- NOTE | 2020-10-14 21:32 | PC.NURSE ---
PT ARRIVED VIA STRETCHER FROM TILE DECORATOR WITH STAFF TO FLOOR AT [phone]
[2020-10-15] VITALS (13 sets, daily range): BP systolic 116–157; BP diastolic 58–85; PULSE 60–84; RESP 16–19; TEMP 36.6–36.7; O2SAT 92–100; BMI 33.9
--- NOTE | 2020-10-15 03:44 | PC.NURSE ---
No acute events throughout night. Currently on 2 L O2 per nasal cannula to maintain sat > 90%, will attempt to wean this AM when pt is more awake. Denies chest pain and being SOA. Lungs CTA. 1st degree Sinus w/ 1st degree AV block noted on tely. Abdomen soft, non-tender w/ active BS in all quads. Has voided w/o difficulty since arriving to floor. Pulses present and equal. Cap refill <3 sec. Dressing to (R) groin C/D/I. (R) radial cath site w/ dime size serosang drainage present, remains unchanged from previous assessment. No needs voiced. Bed alarm in place. VSS
[2020-10-15 06:43] LABS: Basophils % 0.4 % (0.1-2.0); Eosinophils # 0.1 K/mm3 (0.0-0.4); Eosinophils % 0.6 % (0.1-12.0); Hematocrit 50.5 % (42.0-52.0); Hemoglobin 16.3 g/dL (14.1-18.0); Lymphocytes % 9.7 % (10-50); Mean Corpuscular HGB Conc 32.3 g/dL (31.8-35.4); Mean Corpuscular Hemoglobin 29.6 pg (27.0-31.2); Mean Corpuscular Volume 91.4 fl (80-94); Mean Platelet Volume 6.7 fl (7.4-10.4); Monocytes # 1.1 K/mm3 (0.1-1.0); Monocytes % 10.4 % (1.7-9.3); Neutrophils % 78.9 % (37.0-80.0); Platelet Count 254 K/mm3 (142-424); Red Blood Count 5.52 M/mm3 (4.60-6.20); Red Cell Distribution Width 13.1 % (11.5-17.5); White Blood Count 10.2 K/mm3 (4.8-10.8)
[2020-10-15 06:48] LABS: Chloride 104 mmol/L (98-107); Potassium 4.5 mmoL/L (3.5-5.1); Sodium 142 mmol/L (136-145)
[2020-10-15 06:51] LABS: Alanine Aminotransferase 18 U/L (12-78); Albumin Level 4.1 g/dl (3.5-5.0); Albumin/Globulin Ratio 1.2 (1.1-1.8); Alkaline Phosphatase 103 U/L (38-126); Anion Gap 9.5 mEq/L (5-15); Aspartate Amino Transferase 35 U/L (17-59); Bilirubin,Total 0.8 mg/dl (0.2-1.3); Blood Urea Nitrogen 24 mg/dl (9-20); Calcium 9.5 mg/dl (8.4-10.2); Carbon Dioxide 33 mmol/L (22.0-30.0); Creatinine Clearance Estimated 80 mL/min (50-200); Estimated Glomerular Filt Rate 64 ml/min (>60); GFR (African American) 77 ML/MIN (>60); Globulin 3.3 g/dL (1.3-3.2); Glucose 123 mg/dl (74-100); Total Protein,Serum 7.4 g/dl (6.3-8.2)
--- NOTE | 2020-10-15 07:38 | HMH.PHAVTE ---
[facility] VTE Monitoring - Patient Demographics Admission date: 10/14/20 Report Date: 10/15/20 Time: 07:38 Allergies/Adverse Reactions: Patient Allergies No Known Allergies Allergy (Verified 10/14/20 18:37) Height: 1.83 m Weight: 113.7 kg Patient Problems: Current Active Problems Syncope (Acute) Abnormal EKG (Acute) - VTE Risk Labs: VTE Related Lab Results Hgb 16.3 g/dL (14.1-18.0) 10/15/20 05:50 Hct 50.5 % (42.0-52.0) 10/15/20 05:50 Plt Count 254 K/mm3 (142-424) 10/15/20 05:50 PT 10.5 seconds (9.4-11.8) 10/14/20 18:25 INR 0.94 (0.9-1.1) 10/14/20 18:25 BUN 24 mg/dl (9-20) H 10/15/20 05:50 Creatinine 1.10 mg/dl (0.66-1.25) 10/15/20 05:50 Estimated Creat Clear 80 mL/min (50-200) 10/15/20 05:50 Was VTE Risk Assessment Performed: Yes VTE Score: 3 VTE Risk Level: Low Risk - Prophylaxis VTE Prophylaxis Ordered?: Yes Types of VTE Prophylaxis: TEDS Knee High Location of Applied Device: Bilateral Lower Extremeties
--- NOTE | 2020-10-15 08:43 | HMH.HP ---
*Admission Date: 10/14/20 *Chief complaint: Syncopal episode/coronary atherosclerosis *History of present illness: Patient says he was just sitting around a couple of hours ago when he got sweaty and nauseated and began vomiting and had a syncopal episode. He says he was not having chest pain or shortness of breath at the time and is not having any chest pain or shortness of breath now. He says he feels good right now. He is not nauseated. His daughter says that after he passed out he came to fairly quickly and family laid him down on the ground. They let him lay there until daughter arrived. He tried to get up but got dizzy again and therefore was brought here. He has a prior history of a slight heart attack 20+ years ago. He has seen Dr. Acosta. He has a prior history of renal cancer which is now in remission. Patient presented as above with the emergency department: Given his EKG changes and ongoing symptoms he was taken to [facility] last night: Report noted as below: MPRESSION Chronically occluded right coronary artery as described above with right to right and [id number] collaterals Severe disease throughout the proximal mid and distal LAD with successful revascularization of the proximal mid and LAD as well as distal LAD. Successful stenting and revascularization of a large first diagonal artery which was jailed with stenting of the proximal LAD Normal ejection fraction Mildly elevated LVEDP Mild pulmonary hypertension PLAN 1. Brilinta and aspirin 2. LDL less than 55 3. Supportive care 4. At this point I cannot explain the abnormal EKG etc. In retrospect this probably was not an anterior STEMI in his EKG was most likely an intraventricular conduction delay with early repolarization. Nevertheless patient still had severe to critical LAD disease and the revascularization should be helpful in both the short and long-term. 5. Ejection fraction is normal 6. At this point it is unclear why patient had nausea vomiting and syncope. While this could be an acute coronary syndrome my suspicion is other etiologies. I believe additional evaluation, monitoring, testing should be performed. If all testing remains negative then it would be reasonable to presume patient's clinical presentation all stems from an acute coronary syndrome however at this point I feel more comfortable if this were a diagnosis of exclusion. 7. Continue telemetry 8. Echocardiogram in the morning 9. Consider GI evaluation such as cholecystitis etc. 10. I discussed the case with Dr. Mcallister and he is aware of the spurious initial blood gas indicating severe metabolic acidosis which is inaccurate and should not be factored into the clinical equation Electronically signed by : Len Joe, 10/14/2020 20:54:16 This morning patient has no chest pain or shortness of air, no further syncopal episodes but does have some nausea after he eats. [facility] History I have reviewed the patient's past medical history: Yes Medical History: Reports:: Cancer (renal), Coronary Artery Disease, Hyperlipidemia, Hypertension Denies:: Diabetes Mellitus Type 1, Diabetes Mellitus Type 2 *Have you ever received a pneumonia vaccine?: Yes *Have you received a flu vaccine this season?: Yes Other Medical History: Reports: Hypothyroidism Other Surgeries: Yes: Cancer Surgery - *Social History Last grade of school completed: High school graduate Alcohol Intake: never *Occupational Status:: retired Household Members: spouse *Travel in the last 8 weeks: None Family Hx:: No significant family history Review of Systems - Review of Systems Review of systems:: pertinent systems reviewed and negative unless documented below - *Neurologic Reports fainting, Reports weakness, Denies headache(s) Meds Home Medications Medication Instructions Recorded Confirmed Type Amlodipine Besylate [Norvasc 10mg 10 mg PO DAILY 10/14/20 10/14/20 History tablet] Aspir
--- NOTE | 2020-10-15 08:47 | US_ITS ---
PROCEDURE: US GALLBLADDER CLINICAL INDICATION: pain, nausea COMPARISON: No exams were available for comparison FINDINGS: Pancreas: Pancreas is not well delineated due to overlying bowel gas. CT or MRI without and with contrast with pancreatic protocol may provide further evaluation if clinically desired. Liver: Unremarkable. There is appropriate direction of blood flow within a non dilated portal vein. Right kidney: 5 cm right renal cyst. No hydronephrosis. Gallbladder: Gallbladder appears contracted with mild thickening of the wall at approximately 5 mm. There may be a small cholesterol polyp at the fundal region. No gallstones are demonstrated. IMPRESSION: Gallbladder appears contracted with a mildly thickened wall with possible small polyp. No stones demonstrated. No pericholecystic fluid. Common bile duct is normal at 3 mm. Dictated by: Gil Mcfarlane MD 10/15/2020 15:26 Gil Mcfarlane MD in [place] 10/15/2020 15:26
--- NOTE | 2020-10-15 08:53 | CA_ITS ---
APPROVED REPORT EXAM: Comprehensive 2D, Doppler, and color-flow Echocardiogram Perinatal Social Worker: Yadi Stone RCS, RVS Ht: 6 ft 0 in Wt: 250lbs BSA: 2.34 BP: 129/62 mmHg Indications: CAD hx- stent, hx-renal cell CA, Abn EKG, Diastolic dysfunctiuon Echo Enhancing Agent Comments: Large Body habitus with poor acoustic properties throughout exam 2D Dimensions IVSd 1.11 cm M: 0.6-1.2 LVEF (Visual) 49.90 % PWd 1.13 cm M: 0.6 - 1.2 LA Volume 76.60 mL LVDd 5.69 cm M: 4.2 - 5.9 LA Volume Index 32.73 mL/m2 (M/F) 16-34 LVDs 4.23 cm M: 2.5 - 4.0 Aortic Root 3.51 cm M: 3.1 - 3.7 Left Atrium 4.57 cm M: 3.0 - 4.0 RVID Base (AP4) 2.80 cm (M/F) 2.5-4.1 LVOT 2.14 cm (M/F) 1.5-2.5 M-Mode Dimensions LA Diam 3.63 cm (1.9-4.0) Ao Diam 4.16 cm (2.0-3.7) EPSs 0.77 cm LV Diastology E Decel Time 107.00 (160-240 msec) E/A Ratio 1.3 MED E' 5.20 (< 7 cm/sec) MED A' 14.80 cm/s E'/MED E' Ratio 19.00 (>14) LAT E' 10.90 (<10 cm/sec) LAT A' 18.60 cm/s E/LAT E' Ratio 9.06 (>14) Aortic Valve AI PHT 538.00 ms AO Peak GR. 5.20 mmHg Mitral Valve MV E Max Harley. 99.00 (40-130 cm/s) MV A Velocity 74.00 (40-130 cm/s) E/A Ratio 1.34 MV Decel. Time 107.00 (160-240 ms) MV PHT 31.00 ms Pulmonary Valve PV Peak Velocity 153.00 (50-150 cm/s) AL End VMAX 173.00 cm/s Tricuspid Valve TR P. Velocity 225.00 cm/s RAP Estimate 10.00 mmHg RVSP 30.30 mmHg Left Ventricle Left atrium is mildly enlarged, left ventricle is normal size, mild concentric left ventricular hypertrophy, visually estimated ejection fraction 55% with no regional wall motion abnormality, grade 1 diastolic dysfunction seen with tissue Doppler evidence of raise left atrial pressure. Right Ventricle Right atrium and right ventricle are normal size and contractility. Aortic Valve Aortic valve is thickened and calcified without aortic stenosis, there is mild aortic insufficiency. Mitral Valve Mitral valve is grossly normal, there is mild mitral regurgitation. Tricuspid Valve Tricuspid valve is grossly normal, there is mild tricuspid regurgitation, tricuspid regurgitation jet velocity is inadequate for calculation of the right ventricular systolic pressure. Pulmonic Valve Pulmonic valve is poorly visualized. Great Vessels Aortic root is normal size. Pericardium No significant pericardial effusion noted. Conclusion 1. Mildly enlarged left atrium, normal left ventricular size, mild concentric left ventricular hypertrophy, visually estimated ejection fraction 55% with no regional wall motion abnormality, grade 1 diastolic dysfunction seen with tissue Doppler evidence of raise left atrial pressure. 2. Minimally thickened and calcified aortic valve without aortic stenosis, there is mild aortic insufficiency. 3. Mild mitral and tricuspid regurgitation. 4. No significant pericardial effusion noted. Electronically signed by : Manuel Fatima, 10/15/2020 15:21:11
--- NOTE | 2020-10-15 09:14 | HMH.CNCARD ---
History of Present Illness Consult date: 10/15/20 Requesting physician: Kelvin Mcallister Chief complaint: nausea Additional Medical History:: [facility] shows: IMPRESSION Chronically occluded right coronary artery as described above with right to right and [id number] collaterals Severe disease throughout the proximal mid and distal LAD with successful revascularization of the proximal mid and LAD as well as distal LAD. Successful stenting and revascularization of a large first diagonal artery which was jailed with stenting of the proximal LAD Normal ejection fraction Mildly elevated LVEDP Mild pulmonary hypertension PLAN 1. Brilinta and aspirin 2. LDL less than 55 3. Supportive care 4. At this point I cannot explain the abnormal EKG etc. In retrospect this probably was not an anterior STEMI in his EKG was most likely an intraventricular conduction delay with early repolarization. Nevertheless patient still had severe to critical LAD disease and the revascularization should be helpful in both the short and long-term. 5. Ejection fraction is normal 6. At this point it is unclear why patient had nausea vomiting and syncope. While this could be an acute coronary syndrome my suspicion is other etiologies. I believe additional evaluation, monitoring, testing should be performed. If all testing remains negative then it would be reasonable to presume patient's clinical presentation all stems from an acute coronary syndrome however at this point I feel more comfortable if this were a diagnosis of exclusion. 7. Continue telemetry 8. Echocardiogram in the morning 9. Consider GI evaluation such as cholecystitis etc. 10. I discussed the case with Dr. Mcallister and he is aware of the spurious initial blood gas indicating severe metabolic acidosis which is inaccurate and should not be factored into the clinical equation History of present illness: This is an 84-year-old white gentleman who was admitted to the hospital for nausea, vomiting and a syncopal episode. The patient denied any chest pain or chest pressure. He denied any shortness of breath or edema. The patient states that he was at home and had felt really bad. He got nauseated started vomiting and then passed out. He did regain consciousness very quickly and his family laid him down on the ground. When I try to get him up he was still significantly dizzy, therefore they brought him to the emergency department. The patient had some significant EKG changes and was felt to have a STEMI. He was taken directly to the cardiac catheterization laboratory and underwent successful stenting and revascularization of the proximal mid and distal LAD. He also had successful stenting and revascularization of the large first diagonal artery which was jailed with stenting of the proximal LAD. The patient will be on Brilinta and aspirin for dual antiplatelet therapy. However Dr. Joe does not feel that this caused the symptoms that he presented to the hospital with and should have a GI evaluation. The patient states that he has had some nausea this morning after eating. He states that he feels as if he could vomit but he has not had any vomiting this morning. He has had no recurrent symptoms of syncope or dizziness. He denies any chest pain or pressure this morning. He denies any shortness of breath or edema. He denies any fever, chills, diarrhea, PND or orthopnea. [facility] History I have reviewed the patient's past medical history: Yes Medical History: Reports:: Cancer (renal), Coronary Artery Disease, Hyperlipidemia, Hypertension Denies:: Diabetes Mellitus Type 1, Diabetes Mellitus Type 2 *Have you ever received a pneumonia vaccine?: Yes *Have you received a flu vaccine this season?: Yes Other Medical History: Reports: Hypothyroidism Other Surgeries: Yes: Cancer Surgery - *Social History Last grade of school completed: High school graduate Alcohol Intake: never *Occupational Status:: retired
--- NOTE | 2020-10-15 09:20 | CA_ITS ---
APPROVED REPORT Logistics Planner: MAHI TRUJILLO Laterality: Bilateral Study Quality: Adequate, Due to body habitus. Indications: syncope, ASCVD Risk Factors Hypertension: Hyperlipidemia CAD, Doppler Spectral Velocity Analysis ECA (R) 105.40/0.00 cm/s ECA (L) 91.70/0.00 cm/s dICA (R) 82.30/22.30 cm/s dICA (L) 71.10/14.60 cm/s Radha (R) 80.50/18.80 cm/s Radha (L) 60.00/12.90 cm/s pICA (R) 77.10/12.90 cm/s pICA (L) 72.80/17.10 cm/s dCCA (R) 73.70/9.40 cm/s dCCA (L) 83.10/10.30 cm/s pCCA (R) 71.10/16.30 cm/s pCCA (L) 103.70/9.40 cm/s Vert (R) 78.00/10.30 cm/s Vert (L) 75.40/11.10 cm/s ICA/CCA 1.15 ICA/CCA 0.87 Findings Moderate heterogenous plaque throughout exam bilaterally. No hemodynamically significant stenoses. Antegrade flow observed in bilateral vertebral arteries. Large plaque formation observed in distal Left ICA. Conclusion Moderate heterogenous plaque throughout exam bilaterally. No hemodynamically significant stenoses. Antegrade flow observed in bilateral vertebral arteries. Large plaque formation observed in distal Left ICA. Electronically signed by : Gil Mcfarlane MD 10/19/2020 16:04:53
[2020-10-15 09:37] LABS: Chol/HDL Ratio 5.9 (1-3.5); Cholesterol 212 mg/dl (140-200); HDL Cholesterol 36 mg/dl (40-60); Triglycerides 126 mg/dl (30-150); VLDL Cholesterol 25 mg/dL (0-40)
--- NOTE | 2020-10-15 09:46 | HMH.PHAINT ---
MEDICATION RECONCILIATION COMPLETED ON PATIENT USING MED LIST FROM MD OFFICE. -VIVIANE ZAMORA, LUZD
[2020-10-15 09:48] LABS: Direct LDL Cholesterol 141.43 mg/dL (100-129)
[2020-10-15 11:53] LABS: CATHL Activated Clotting Time 316 SEC (74-125)
[2020-10-15 11:54] LABS: CATHL Activated Clotting Time 260 SEC (74-125)
--- NOTE | 2020-10-15 12:55 | HMH.LOOP ---
[facility] Loop Recorder Date: 10/15/20 Time: 12:55 Procedure Performed:: Implantation of loop recorder Indication:: Syncope Abnormal EKG Myocardial infarction Technique:: Patient was brought to the cardiac Microfabrication Engineer Manager. After informed consent obtained, 1% lidocaine with epinephrine was used to anesthetize the site along the left anterior aspect of the chest near the sternal border. Using the preformed scalpel, an incision was made and using the supplied preloaded apparatus, the loop recorder was placed subcutaneously without difficulty. Following the deployment of the loop recorder interrogation of the device was performed to ensure appropriate voltage was being detected (0.18 mV). Once this was verified, Steri-Strips were placed over the incision and the patient was prepped to discharge home. Patient tolerated the procedure well with minimal discomfort. Impression:: Successful implantation of loop recorder Serial Number:: [employer] LUX-Dx Serial #[id number] Plan:: Routine postop care
--- NOTE | 2020-10-15 18:13 | PC.NURSE ---
pt had a loop recorder placed today. dressing to left upper chest is cdi. no c/o pain. pt cont. to c/o nausea, prn medication given with relief. vss. will cont. to monitor.
--- NOTE | 2020-10-15 23:52 | PC.NURSE ---
2100 [facility] [address] PT ASLEEP . TRASH EMPTIED
[2020-10-16] VITALS: BP 138/64; PULSE 76; PULSE 78; RESP 16; TEMP 36.9; O2SAT 94
--- NOTE | 2020-10-16 03:28 | PC.NURSE ---
Has slept throughout shift. No complaints voiced. Remains on room air. Lungs CTA. HR regular. Sinus w/ 1st degree block noted on tely. Abdomen soft, non-tender w/ active BS. Voiding w/o difficulty independently per urinal. Dressing to L chest wall c/d/i. R Radial cath site dressing w/ small amount of serosang drainage, unchanged. (R) fem dressing c/d/i. Bed alarm in place for safety. VSS
[2020-10-16 04:00] VITALS: BP 140/53; PULSE 80; PULSE 81; RESP 16; TEMP 36.7; O2SAT 91
[2020-10-16 05:22] VITALS: BMI 33.7
[2020-10-16 06:45] LABS: Basophils % 0.2 % (0.1-2.0); Eosinophils # 0.1 K/mm3 (0.0-0.4); Eosinophils % 0.8 % (0.1-12.0); Hematocrit 50.3 % (42.0-52.0); Hemoglobin 16.4 g/dL (14.1-18.0); Lymphocytes % 8.7 % (10-50); Mean Corpuscular HGB Conc 32.5 g/dL (31.8-35.4); Mean Corpuscular Hemoglobin 29.7 pg (27.0-31.2); Mean Corpuscular Volume 91.4 fl (80-94); Monocytes # 1.3 K/mm3 (0.1-1.0); Monocytes % 11.3 % (1.7-9.3); Neutrophils # 9.2 K/mm3 (1.8-7.8); Platelet Count 263 K/mm3 (142-424); Red Blood Count 5.51 M/mm3 (4.60-6.20); Red Cell Distribution Width 13.2 % (11.5-17.5); White Blood Count 11.6 K/mm3 (4.8-10.8)
[2020-10-16 06:48] LABS: Chloride 108 mmol/L (98-107); Potassium 3.9 mmoL/L (3.5-5.1); Sodium 140 mmol/L (136-145)
[2020-10-16 06:50] LABS: Alanine Aminotransferase 22 U/L (12-78); Aspartate Amino Transferase 40 U/L (17-59); Blood Urea Nitrogen 20 mg/dl (9-20); Creatinine Clearance Estimated 80 mL/min (50-200); Estimated Glomerular Filt Rate 64 ml/min (>60); GFR (African American) 77 ML/MIN (>60)
[2020-10-16 06:51] LABS: Albumin Level 4.2 g/dl (3.5-5.0); Albumin/Globulin Ratio 1.2 (1.1-1.8); Alkaline Phosphatase 105 U/L (38-126); Anion Gap 12.9 mEq/L (5-15); Bilirubin,Total 1.1 mg/dl (0.2-1.3); Calcium 9.3 mg/dl (8.4-10.2); Carbon Dioxide 23 mmol/L (22.0-30.0); Globulin 3.4 g/dL (1.3-3.2); Glucose 136 mg/dl (74-100); Total Protein,Serum 7.6 g/dl (6.3-8.2)
--- NOTE | 2020-10-16 06:52 | HMH.DCSUM ---
General - General Admission date:: 10/14/20 Discharge date: 10/16/20 HPI HPI: Patient says he was just sitting around a couple of hours ago when he got sweaty and nauseated and began vomiting and had a syncopal episode. He says he was not having chest pain or shortness of breath at the time and is not having any chest pain or shortness of breath now. He says he feels good right now. He is not nauseated. His daughter says that after he passed out he came to fairly quickly and family laid him down on the ground. They let him lay there until daughter arrived. He tried to get up but got dizzy again and therefore was brought here. He has a prior history of a slight heart attack 20+ years ago. He has seen Dr. Acosta. He has a prior history of renal cancer which is now in remission. Patient presented as above with the emergency department: Given his EKG changes and ongoing symptoms he was taken to [facility] last night: Report noted as below: MPRESSION Chronically occluded right coronary artery as described above with right to right and [id number] collaterals Severe disease throughout the proximal mid and distal LAD with successful revascularization of the proximal mid and LAD as well as distal LAD. Successful stenting and revascularization of a large first diagonal artery which was jailed with stenting of the proximal LAD Normal ejection fraction Mildly elevated LVEDP Mild pulmonary hypertension PLAN 1. Brilinta and aspirin 2. LDL less than 55 3. Supportive care 4. At this point I cannot explain the abnormal EKG etc. In retrospect this probably was not an anterior STEMI in his EKG was most likely an intraventricular conduction delay with early repolarization. Nevertheless patient still had severe to critical LAD disease and the revascularization should be helpful in both the short and long-term. 5. Ejection fraction is normal 6. At this point it is unclear why patient had nausea vomiting and syncope. While this could be an acute coronary syndrome my suspicion is other etiologies. I believe additional evaluation, monitoring, testing should be performed. If all testing remains negative then it would be reasonable to presume patient's clinical presentation all stems from an acute coronary syndrome however at this point I feel more comfortable if this were a diagnosis of exclusion. 7. Continue telemetry 8. Echocardiogram in the morning 9. Consider GI evaluation such as cholecystitis etc. 10. I discussed the case with Dr. Mcallister and he is aware of the spurious initial blood gas indicating severe metabolic acidosis which is inaccurate and should not be factored into the clinical equation Electronically signed by : Len Joe, 10/14/2020 20:54:16 This morning patient has no chest pain or shortness of air, no further syncopal episodes but does have some nausea after he eats. Hospital Course Hospital Course: 84-year-old gentleman admitted for chest pain and syncopal event. Concern for STEMI initially. Taken to the [facility] where critical coronary disease was intervened on with placement of 3 stents. See cath report for full details. Symptoms resolved of chest pain. Patient unfortunately has had repeat episode of nausea and an episode of diarrhea during admission. Labs remained stable. No other acute events during hospitalization from a cardiac standpoint. As he remained hemodynamically stable, tolerating room air, tolerating advancement of diet, meeting criteria for discharge home. Plan for close follow-up in the coming week as an outpatient. Objective Vital signs: Temp Pulse Resp BP Pulse Ox 98.1 F 81 16 140/53 L 91 L 10/16/20 04:00 10/16/20 04:00 10/16/20 04:00 10/16/20 04:00 10/16/20 04:00 Narrative: - *Routine HEENT Exam Head: Present: normocephalic Eye: Present: EOMI, PERRL ENT: Present: mucous membranes moist - *Routine Neck Exam Present: supple.
--- NOTE | 2020-10-16 07:47 | HMH.PNCARD ---
Subjective Date: 10/16/20 Time: 07:47 Principal diagnosis: Syncope, ND, nausea, abdominal discomfort Interval history: 84-year-old white male in no acute distress. Patient was returning from the bathroom upon my entering his room today. He relates 2 episodes of severe abdominal discomfort with bowel movements. One occurred during the night that he was incontinent of stool. He states these are the same symptoms that he presented with minus passing out. Telemetry shows no arrhythmias during the 4:00 hour or 730 timeframe that the patient relates that the symptoms. He does relate the stools were dark in nature with no visible blood but he still feels as if they might be bloody. Exam Vital signs and Labs for Last 24 Hours: Temp Pulse Resp BP Pulse Ox 98.1 F 81 16 140/53 L 91 L 10/16/20 04:00 10/16/20 04:00 10/16/20 04:00 10/16/20 04:00 10/16/20 04:00 Laboratory Results - last 24 hr 10/14/20 20:14: Activated Clotting Time 260 H* 10/14/20 21:08: Activated Clotting Time 316 H* D 10/15/20 05:50: Triglycerides 126, Cholesterol 212 H, LDL Cholesterol Direct 141.43 H, VLDL Cholesterol 25, HDL Cholesterol 36 L, Cholesterol/HDL Ratio 5.9 H 10/16/20 05:40: WBC 11.6 H, RBC 5.51, Hgb 16.4, Hct 50.3, MCV 91.4, MCH 29.7, MCHC 32.5, RDW 13.2, Plt Count 263, MPV 7.0 L, Neut % (Auto) 79.0, Lymph % (Auto) 8.7 L, [place] % (Auto) 11.3 H, Eos % (Auto) 0.8, Baso % (Auto) 0.2, Neut # (Auto) 9.2 H, Lymph # (Auto) 1.0, [place] # (Auto) 1.3 H, Eos # (Auto) 0.1, Baso # (Auto) 0.0 10/16/20 05:40: Sodium 140, Potassium 3.9, Chloride 108 H, Carbon Dioxide 23 D, Anion Gap 12.9, BUN 20, Creatinine 1.10, Estimated Creat Clear 80, Estimated GFR 64, Est GFR ( Amer) 77, Glucose 136 H, Calcium 9.3, Total Bilirubin 1.1, AST 40, ALT 22, Alkaline Phosphatase 105, Total Protein 7.6, Albumin 4.2, Globulin 3.4 H, Albumin/Globulin Ratio 1.2 I & O for Last 24 hours: Intake & Output 10/13/20 10/14/20 10/15/20 10/16/20 11:59 11:59 11:59 11:59 Intake Total 120 / 120 480 / 480 Output Total 550 / 550 400 / 400 Balance -430 / -430 80 / 80 Weight 250 lb 10.649 oz 249 lb 4 oz - Constitutional no acute distress - *Routine HEENT Exam Head: Present: normocephalic Eye: Present: EOMI, PERRL ENT: Present: mucous membranes moist - *Routine Neck Exam Present: supple. Absent: lymphadenopathy - *Routine Respiratory Exam Present: CTA bilaterally - *Routine Cardiovascular Exam Present: RRR - *Routine Abdominal Exam Present: soft, normoactive bowel sounds. Absent: tenderness - *Routine Extremities Exam Absent: cyanosis, clubbing, edema - *Routine Skin Exam Present: warm. Absent: rash - *Routine Neurological Exam Present: alert, oriented X3 Progress Note: A&P (1) Syncope Status: Acute Assessment and plan: No recurrence overnight. Loop recorder in place. Telemetry shows no arrhythmias. (2) Coronary atherosclerosis Status: Acute Assessment and plan: Clinically stable after coronary stenting to LAD and diagonal. Continue dual antiplatelet therapy. (3) Hypertension, essential Status: Acute Assessment and plan: Blood pressure in systolic in the 140 to 150 mmHg range. Continue carvedilol and irbesartan therapy. We will not push his antihypertensives at this time due to history of syncope without etiology currently. (4) Obesity Status: Acute (5) Right upper quadrant pain Status: Acute (6) Abnormal EKG Status: Acute (7) Nausea Status: Acute (8) Status post coronary artery stent placement Status: Acute Assessment and Plan for All Diagnoses:: Discussed with Dr. Draper the patient's symptoms overnight. He will have the patient tested for Covid by PCR since his antibodies were negative but symptoms suspicious for Covid infection. Consider GI evaluation pending exam by Dr. Draper. Clinically from a heart standpoint he is stable and the patient could be discharged home.
[2020-10-16 08:49] VITALS: BP 139/67; PULSE 77; RESP 18; TEMP 36.8; O2SAT 98
--- NOTE | 2020-10-16 11:40 | HMH.PHACLD ---
Kenrick Smart has received discharge medication counseling on the following medications: BRILINTA 90MG LIPITOR 40MG PATIENT ALREADY TAKING ASPIRIN, LOSARTAN, AND CARVEDILOL. NEW PRESCRIPTIONS WERE SENT TO CLINIC PHARMACY. PATIENT IS TO CONTINUE ALL OTHER HOME MEDICATIONS. PATIENT VERBALIZED UNDERSTANDING AND HAD NO QUESTIONS AT THIS TIME. -VIVIANE ZAMORA, LUZD
[2020-10-16 12:00] VITALS: PULSE 70
== END 2020-10-16 13:15 | disposition home or self-care (01) | DRG 246 ==
LOC: ER 18:46 → 2ND 21:52
PROVIDERS: Internal Medicine; Nurse Practitioner Family; Admitting Provider Internal Medicine Adolescent Medicine; Emergency Provider Emergency Medicine; PCP Internal Medicine Adolescent Medicine; Visit Provider Internal Medicine Adolescent Medicine
PROC: 027037Z Dilation of Coronary Artery, One Artery with Four or More Drug-eluting Intraluminal Devices, Percutaneous Approach (ICD-10-PCS; principal; 2020-10-14 07:30)
PROC: 0JH602Z Insertion of Monitoring Device into Chest Subcutaneous Tissue and Fascia, Open Approach (ICD-10-PCS; principal; 2020-10-15 12:30)
DX: I25.10 Atherosclerotic heart disease of native coronary artery without angina pectoris (principal); I24.9 Acute ischemic heart disease, unspecified; R55 Syncope and collapse; I10 Essential (primary) hypertension; Z79.899 Other long term (current) drug therapy; E03.9 Hypothyroidism, unspecified; I25.82 Chronic total occlusion of coronary artery
CPT/HCPCS: 33285; 71045; 76705; 80048; 80053; 80061; 82803; 84484; 85025; 85347; 85610; 86328; 92928; 92929; 93005; 93306; 93460; 93880; 96374; 99152; 99153; 99284; C1725; C1760; C1769; C1876; C1894; C9600; C9601; J1644; J2405; Q9967; U0003

== ENCOUNTER 2020-11-06 12:18 | Outpatient (RCR) | payer BC, SELFPAY | END 2021-03-19 11:00 | disposition home or self-care (01) | LOC: PT 12:18 | PROVIDERS: Visit Provider Internal Medicine | DX: Z95.5 Presence of coronary angioplasty implant and graft (principal); I25.10 Atherosclerotic heart disease of native coronary artery without angina pectoris; I25.2 Old myocardial infarction | CPT/HCPCS: 93798 ==

== ENCOUNTER 2020-11-23 09:52 | Inpatient (IN) | payer MEDICARE, BC, SELFPAY ==
[2020-11-23] VITALS (14 sets, daily range): BP systolic 97–151; BP diastolic 42–76; PULSE 65–127; RESP 17–18; TEMP 36.4–37; O2SAT 91–98; BMI 31.5; BMI 32.6
--- NOTE | 2020-11-23 09:58 | ECG_ITS ---
APPROVED REPORT Exam: Resting ECG HR:106 bpm ECG Measurements Heart Rate 106 AXES IL P 102 QRSd 120 QRS 46 QT 430 T 99 QTc 571 Conclusion Sinus tachycardia with frequent and consecutive premature ventricular complexes Incomplete left bundle branch block Nonspecific T wave abnormality Abnormal ECG Electronically signed by : Kelvin Mcallister, 11/24/2020 19:39:57
--- NOTE | 2020-11-23 10:00 | XR_ITS ---
PROCEDURE: XR CHEST PORTABLE CLINICAL HISTORY: syncope COMPARISON: CR CXR2V XR chest 2V from 06/29/[address] CHEST W CON from 08/19/2019 CR XR CHEST PORTABLE from 10/14/2020 FINDINGS: The cardiomediastinal silhouette and pulmonary vascularity are within normal limits. Loop recorder device is present on the left. Overlying monitoring device/defibrillator pad is also noted. Lungs are clear. No acute bony findings. IMPRESSION: No acute findings. Dictated by: Gil Mcfarlane MD 11/23/2020 10:30 Gil Mcfarlane MD in [place] 11/23/2020 10:30
--- NOTE | 2020-11-23 10:02 | HMH.EDCP ---
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 The time I documented below is in addition to time spent performing reported procedures but includes the following listed in this critical care notation. Medical Decision Making - Lux Inquiry Pt receiving controlled substance: No Vital Signs: 11/23/20 09:53 11/23/20 10:23 11/23/20 11:01 Temperature 97.6 F Temperature Source Oral Pulse Rate [Apical] 70 67 83 Respiratory Rate 18 18 18 Blood Pressure [Right Arm] 97/52 L 107/50 L 107/46 L Blood Pressure Mean [Right Arm] 67 69 66 Blood Pressure Source [Right Arm] Automatic Cuff Automatic Cuff Blood Pressure Position [Right Arm] Sitting Sitting 02 Sat by Pulse Oximetry 93 L 91 L 94 L Oxygen Delivery Method Room Air Room Air - Lab Data Lab results reviewed: Yes: I reviewed the patient's lab results. Lab Results 11/23/20 09:50: WBC 9.1, RBC 5.48, Hgb 16.2, Hct 49.2, MCV 89.6, MCH 29.5, MCHC 32.9, RDW 13.8, Plt Count 289, MPV 7.4, Neut % (Auto) 62.9, Lymph % (Auto) 23.5, Lane % (Auto) 10.9 H, Eos % (Auto) 2.0, Baso % (Auto) 0.8, Neut # (Auto) 5.7, Lymph # (Auto) 2.1, Lane # (Auto) 1.0, Eos # (Auto) 0.2, Baso # (Auto) 0.1 11/23/20 09:50: Troponin I 0.03 11/23/20 09:50: Sodium 139, Potassium 4.3, Chloride 107, Carbon Dioxide 24, Anion Gap 12.3, BUN 16, Creatinine 1.30 H, Estimated GFR 53 L, Est GFR ( Amer) 64, Glucose 93, Calcium 9.3, Total Bilirubin 0.9, AST 32, ALT 27, Alkaline Phosphatase 106, Total Protein 7.4, Albumin 4.1, Globulin 3.3 H, Albumin/Globulin Ratio 1.2 Result diagrams: 11/23/20 09:50 11/23/20 09:50 Orders (Tests/Meds): ORDERS Category Date Time Status Covid-19 Nasal PCR ([facility]) Routine Lab 11/23/20 09:55 Received Troponin I Q3H Lab 11/23/20 13:00 Ordered Troponin I Q3H Lab 11/23/20 16:00 Ordered - CT Data CT Scan: Head Time Received: 12:[address] Reviewed: Yes: I have reviewed the patient's CT results, I have viewed the radiologist's interpretation Preliminary Findings: Normal/NAD - ECG Data Tracing #1 A. fib, multiple PVCs, incomplete left bundle branch, nonspecific T wave abnormalities ECG initial impression date: 11/23/20 ECG initial impression time: 09:58 Normal Sinus Rhythm: No Conduction abnormalities present: LBBB - SIMRAN Score for Non-Stemi Age of Patient: 80-89 years old Heart Rate: 90-109 bpm Systolic Blood Pressure: 100-119 mmHg Serum Creatinine: 0.80-1.19 mg/dl CHF Killip Class: I-No CHF Other Risk Factors: None Non-Stemi Risk Score: 156 Medical Decision Narrative: 84yo M that had a CODE BLUE events in the hospital during rehab. Patient has been stable since arrival in the emergency department. His heart rate has varied from 40s to 135. He denies any pain or shortness of breath at this time. Laboratory studies reveal a troponin of 0.03. EKG demonstrates possible new onset atrial fibrillation. Case discussed with Dr. Mcallister who agrees to admit the patient observation this time. 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 Chest Pain HPI - General Stated Complaint: syncope Time Seen by Provider: 11/23/20 09:52 Mode of Arrival: EMS - History of Present Illness HPI narrative: 84yo M evaluated initially in rehab where the patient was completing cardiopulmonary rehab when he had a near syncopal event. CODE BLUE was called. I responded as part of the CODE BLUE team. Patient was conscious with A. fib on the monitor on arrival. Manual blood pressure was 80/40. Patient reports she felt lightheaded and
[2020-11-23 10:09] LABS: Basophils # 0.1 K/mm3 (0-0.2); Basophils % 0.8 % (0.1-2.0); Chloride 107 mmol/L (98-107); Eosinophils # 0.2 K/mm3 (0.0-0.4); Hematocrit 49.2 % (42.0-52.0); Hemoglobin 16.2 g/dL (14.1-18.0); Lymphocytes # 2.1 K/mm3 (0.7-4.5); Lymphocytes % 23.5 % (10-50); Mean Corpuscular HGB Conc 32.9 g/dL (31.8-35.4); Mean Corpuscular Hemoglobin 29.5 pg (27.0-31.2); Mean Corpuscular Volume 89.6 fl (80-94); Mean Platelet Volume 7.4 fl (7.4-10.4); Monocytes % 10.9 % (1.7-9.3); Neutrophils # 5.7 K/mm3 (1.8-7.8); Neutrophils % 62.9 % (37.0-80.0); Platelet Count 289 K/mm3 (142-424); Red Blood Count 5.48 M/mm3 (4.60-6.20); Red Cell Distribution Width 13.8 % (11.5-17.5); White Blood Count 9.1 K/mm3 (4.8-10.8)
[2020-11-23 10:10] LABS: Potassium 4.3 mmoL/L (3.5-5.1); Sodium 139 mmol/L (136-145)
[2020-11-23 10:12] LABS: Alanine Aminotransferase 27 U/L (12-78); Alkaline Phosphatase 106 U/L (38-126); Anion Gap 12.3 mEq/L (5-15); Aspartate Amino Transferase 32 U/L (17-59); Bilirubin,Total 0.9 mg/dl (0.2-1.3); Blood Urea Nitrogen 16 mg/dl (9-20); Carbon Dioxide 24 mmol/L (22.0-30.0); Estimated Glomerular Filt Rate 53 ml/min (>60); GFR (African American) 64 ML/MIN (>60)
[2020-11-23 10:13] LABS: Albumin Level 4.1 g/dl (3.5-5.0); Albumin/Globulin Ratio 1.2 (1.1-1.8); Calcium 9.3 mg/dl (8.4-10.2); Globulin 3.3 g/dL (1.3-3.2); Glucose 93 mg/dl (74-100); Total Protein,Serum 7.4 g/dl (6.3-8.2)
[2020-11-23 10:24] LABS: Troponin I 0.03 ng/ml (0.00-0.034)
--- NOTE | 2020-11-23 11:06 | CT_ITS ---
PROCEDURE: CT HEAD/BRAIN WO CON CLINICAL INDICATION: syncople episode COMPARISON: No exams were available for comparison TECHNIQUE: Axial images obtained. All CT scans at the facility use one or more dose reduction, viz: automated exposure control, ma/kV adjustment per patient size (including targeted exams where dose is matched to indication, i.e. head), or iterative reconstruction technique. FINDINGS: No midline shift, mass effect, intracranial hemorrhage, hydrocephalus, or extra-axial fluid collection is evident. There is generalized atrophy with hypoattenuation of the periventricular white matter consistent with microangiopathic changes.. Calcific plaque is present involving the cavernous portion of the ICAs on both sides. The calvarium has an unremarkable appearance. No mastoid effusion. There is mild mucosal thickening of the frontal sinus IMPRESSION: No acute intracranial finding Dictated by: Gil Mcfarlane MD 11/23/2020 11:50 Gil Mcfarlane MD in [place] 11/23/2020 11:50
--- NOTE | 2020-11-23 11:09 | PC.NURSE ---
pt family is asking if ER MD thinks a CT scan of head is appropriate for pt r/t pt had a very similar episode when had had an CT approx 1 month ago but states cardiology told them the CT was almost an incidental finding. Notified ER MD of family request, he gave verbal order for CT scan of head
--- NOTE | 2020-11-23 11:14 | PC.NURSE ---
notified rad of CT order
--- NOTE | 2020-11-23 13:18 | HMH.CNCARD ---
History of Present Illness Consult date: 11/23/20 Requesting physician: Hay Finn Consult reason: atrial fibrillation Chief complaint: nausea History of present illness: This is an 84-year-old white gentleman who had a CODE BLUE while at the hospital today in cardiac rehab. The patient states that he was sitting down waiting to do his next exercise when he had sudden onset of nausea and sweatiness. He states that he felt a bit clammy and was having cold sweats. He states that he kind of felt that way when he woke up this morning but came on to the hospital for cardiac rehab anyway. He states that while he was sitting there his symptoms got worse. He states then he kind of just fell over out of his chair because he felt so poorly. He states that he remained conscious throughout the entire event. He never lost consciousness or had a syncopal episode. A CODE BLUE was called. He did have atrial fibrillation with RVR on the monitor. His heart rate was around 150 bpm. His blood pressure was 80/40. Dr. Joe did respond to the CODE BLUE. The patient was in atrial fibrillation with RVR and tachycardia. He states that he did convert to sinus rhythm and his heart rate was 50 and did drop down in the 40s as well. He denies any chest pain or pressure. He denies any shortness of breath or edema. He denies any fever, vomiting, diarrhea, PND or orthopnea. His initial troponin is negative. 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 [facility] History I have reviewed the patient's past medical history: Yes Medical History: Reports:: Cancer, Coronary Artery Disease, Hyperlipidemia, Hypertension Denies:: Diabetes Mellitus Type 1, Diabetes Mellitus Type 2 *Have you ever received a pneumonia vaccine?: No *Have you received a flu vaccine this season?: No Other Medical History: Reports: Hypothyroidism Other Surgeries: Yes: Cancer Surgery - *Social History Smoking Status: Former smoker Alcohol Intake: never *Occupational Status:: retired Household Members: spouse *Travel in the last 8 weeks: None Family Hx:: No significant family history Meds Home Medications Medication Instructions Recorded Confirmed Type Amlodipine Besylate [Norvasc 10mg 10 mg PO DAILY 10/14/20 11/02/20 History tablet] Aspirin [Aspirin 81mg EC Tab] 81 mg PO DAILY 10/14/20 11/02/20 History Cyanocobalamin (Vitamin B-12) 1,000 mcg PO DAILY 10/14/20 11/02/20 History [B-12] Furosemide [Lasix 20mg tablet] 20 mg PO DAILY 10/14/20 11/02/20 History Levothyroxine Sodium [Synthroid 50 mcg PO DAILY 10/14/20 11/02/20 History 50mcg (0.05mg) tab] Losartan Potassium [Cozaar 100mg 100 mg PO DAILY 10/14/20 11/02/20 History Tablets] Potassium Chloride [Pot Chlor 10 20 meq PO DAILY 10/14/20 11/02/20 History mEq Tab] carvediloL [Coreg 6.25mg 6.25 mg PO BID 10/14/20 11/02/20 History Tablet] Atorvastatin Calcium [Lipitor 40mg 40 mg PO HS 30 Days #30 tab 10/16/20 11/02/20 Rx Tablet*] clopidogrel 75 mg tablet 75 mg PO DAILY #30 tab 11/02/20 11/02/20 Rx pantoprazole 40 mg tablet,delayed 40 mg PO DAILY #30 tab 11/02/20 11/02/20 Rx release Allergies Allergy/AdvReac Type Severity Reaction Status Date / Time No Known Allergies Allergy Verified 11/02/20 11:16 Exam Vital signs and Labs for Last 24 Hours: Temp Pulse Resp BP Pulse Ox 97.6 F 83 18 107/46 L 94 L 11/23/20 09:53 11/23/20 11:01 11/23/20 11:01 11/23/20 11:01 11/23/20 11:01 Laboratory Results - last 24 hr 11/23/20 09:50: WBC 9.1, RBC 5.48, Hgb 16.2, Hct 49.2, MCV 89.6, MCH 29.5, MCHC 32.9, RDW 13.8, Plt Count 289, MPV 7.4, Neut % (Auto) 62.9, Lymph % (Auto) 23.5, [place] % (Auto) 10.9 H, Eos % (Auto) 2.0, Baso % (Auto) 0.8, Neut # (Auto) 5.7, Lymph # (Auto) 2.1, [place] # (Auto) 1.0, Eos # (Auto) 0.2, Baso # (Auto) 0.1 11/23/20 09:50: Troponin I 0.03 11/23/20 09:50: Sodium 139, Potassium 4.3, Chloride 107, Carbon
--- NOTE | 2020-11-23 13:28 | PC.NURSE ---
Called to check on status of covid swab and they advised there was 30 mins left
[2020-11-23 13:46] LABS: Troponin I 0.03 ng/ml (0.00-0.034)
--- NOTE | 2020-11-23 14:26 | PC.NURSE ---
report called to darío bravo at this time
[2020-11-23 16:41] LABS: Troponin I 0.03 ng/ml (0.00-0.034)
--- NOTE | 2020-11-23 17:20 | HMH.HP ---
*Admission Date: 11/23/20 *Chief complaint: Syncopal episode *History of present illness: This is an 84-year-old white gentleman who had a CODE BLUE while at the hospital today in cardiac rehab. The patient states that he was sitting down waiting to do his next exercise when he had sudden onset of nausea and sweatiness. He states that he felt a bit clammy and was having cold sweats. He states that he kind of felt that way when he woke up this morning but came on to the hospital for cardiac rehab anyway. He states that while he was sitting there his symptoms got worse. He states then he kind of just fell over out of his chair because he felt so poorly. He states that he remained conscious throughout the entire event. He never lost consciousness or had a syncopal episode. A CODE BLUE was called. He did have atrial fibrillation with RVR on the monitor. His heart rate was around 150 bpm. His blood pressure was 80/40. Dr. Joe did respond to the CODE BLUE. The patient was in atrial fibrillation with RVR and tachycardia. He states that he did convert to sinus rhythm and his heart rate was 50 and did drop down in the 40s as well. He denies any chest pain or pressure. He denies any shortness of breath or edema. He denies any fever, vomiting, diarrhea, PND or orthopnea. His initial troponin is negative. 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 Above note per cardiology, patient feels asymptomatic currently on examination. [facility] History I have reviewed the patient's past medical history: Yes Medical History: Reports:: Cancer (renal), Coronary Artery Disease, Diabetes Mellitus Type 2, Hyperlipidemia, Hypertension, Myocardial Infarction Denies:: Diabetes Mellitus Type 1 *Have you ever received a pneumonia vaccine?: Yes *Have you received a flu vaccine this season?: Yes Other Medical History: Reports: Arthritis, Hypothyroidism Other Surgeries: Yes: Cancer Surgery, Cardiac Catheterization, Colonoscopy, Coronary Stent, Hernia Repair - *Social History Last grade of school completed: High school graduate Smoking Status: Former smoker Alcohol Intake: never *Occupational Status:: retired Housing: house Household Members: spouse *Travel in the last 8 weeks: None Family Hx:: Diabetes, Heart Attack, Hypertension Review of Systems - Review of Systems Review of systems:: pertinent systems reviewed and negative unless documented below Meds Home Medications Medication Instructions Recorded Confirmed Type Amlodipine Besylate [Norvasc 10mg 10 mg PO DAILY 10/14/20 11/02/20 History tablet] Aspirin [Aspirin 81mg EC Tab] 81 mg PO DAILY 10/14/20 11/02/20 History Cyanocobalamin (Vitamin B-12) 1,000 mcg PO DAILY 10/14/20 11/02/20 History [B-12] Furosemide [Lasix 20mg tablet] 20 mg PO DAILY 10/14/20 11/02/20 History Levothyroxine Sodium [Synthroid 50 mcg PO DAILY 10/14/20 11/02/20 History 50mcg (0.05mg) tab] Losartan Potassium [Cozaar 100mg 100 mg PO DAILY 10/14/20 11/02/20 History Tablets] Potassium Chloride [Pot Chlor 10 20 meq PO DAILY 10/14/20 11/02/20 History mEq Tab] carvediloL [Coreg 6.25mg 6.25 mg PO BID 10/14/20 11/02/20 History Tablet] Atorvastatin Calcium [Lipitor 40mg 40 mg PO HS 30 Days #30 tab 10/16/20 11/02/20 Rx Tablet*] clopidogrel 75 mg tablet 75 mg PO DAILY #30 tab 11/02/20 11/02/20 Rx pantoprazole 40 mg tablet,delayed 40 mg PO DAILY #30 tab 11/02/20 11/02/20 Rx release Allergies Allergy/AdvReac Type Severity Reaction Status Date / Time No Known Allergies Allergy Verified 11/02/20 11:16 Exam Vital signs and Labs for Last 24 Hours: Temp Pulse Resp BP Pulse Ox 98.4 F 120 H 18 149/69 H 94 L 11/23/20 14:45 11/23/20 15:57 11/23/20 14:45 11/23/20 14:45 11/23/20 14:45 Laboratory Results - last 24 hr 11/23/20 09:50: WBC 9.1, RBC 5.48, Hgb 16.2, Hct 49.2, MCV 89.6, MCH 29.5, MCHC 32.9, RDW 13.
--- NOTE | 2020-11-23 18:08 | PC.NURSE ---
No complaints since arriving to floor. Pt remains on room air, sat mid 90's. Lungs diminished. A-Fib noted on tely, rate controlled. Abdomen soft, non-tender w/ active BS. Voiding w/o difficulty. Pt ambulates w/o difficulty, standby assist for pt safety. Currently sitting up in bed watching TV. Call domi w/in reach.
[2020-11-24] VITALS (22 sets, daily range): BP systolic 118–164; BP diastolic 53–103; PULSE 57–120; RESP 16–20; TEMP 36.4–37.2; O2SAT 90–96; BMI 32.5
--- NOTE | 2020-11-24 | IR_ITS ---
APPROVED REPORT Patient Location: Inpatient Court Bailiff Or Sheriff: SINGH Cazares RT (R) PROCEDURES 1. Pocket formation for Permanent Pacemaker Placement. 2. Placement of an atrial sensing and pacing coil into the right atrial appendage. 3. Placement of a ventricular sensing and pacing coil in the right ventricular apex. 4. Permanent Pacemaker Placement. INDICATION Syncope, Tachy/Arsalan Syndrome Informed consent was obtained prior to the procedure. COMPLICATIONS None Estimated Blood Loss: Less than 10ml TECHNIQUE 1% Lidocaine with epinephrine used to anesthetized the left anterior aspect of the chest. Scalpel was used to make the initial cutaneous incision while electrocautery was used to dissect down tinto the fascia. The fascia was lifted off the pectoralis muscle and digitally manipulated creating a pocket for the pacemaker. The patient was then placed in Trendelenburg position and the subclavian vein was accessed twice via the Selinger technique, there are two wires in the vein. A 6 [place] sheath was placed under fluoroscopic guidance into the subclavian vein over one of the wires while keeping the other wire in place within the subclavian vein. The dilator was removed from the sheath. Using fluoroscopic guidance, the ventricular lead was placed into the right ventricular apex, screwed and secured into place. Electronic interrogation proved acceptable thresholds and voltage within the lead. Using 3-0 silk, the ventricular lead was then secured into place. Lead was secured to the facia using the 3-0 silk. Following this, the sheath was pealed away. An additional 6 [place] fresh sheath and dilator was placed over the existing wire. Using fluoroscopic guidance, the atrial lead was the placed into the right atrial appendage and screwed and secured in place. Electrical interrogation demonstrated acceptable thresholds and voltage number. The atrial lead was then secured into place using 3-0 silk. 1 gram of Ancef was used to flush the pocket. Following the pacemaker generator being secured to the fascia and in place, Monocryl was used to close the subcutaneous layers while tess were used to close the cutaneous layer. A pressure dressing was placed and the patient was transferred to the postop holding area in stable condition for postoperative care. INTERROGATION Generator Model number: GOWEXMARIAN [address]ST[address] DR, L311 Generator Serial number: [id number] Atrial lead model number: INGEVITY+ 52cm, 7841 Atrial lead serial number: [id number] P-wave: 2.0mV Impedence: 593 ohms Threshold: Afib Right Ventricular lead model number: SHAREVITY+ 59cm, 7842 Right Ventricular lead serial number: [id number] R-wave: 18.0mV Impedence: 850 ohms Threshold: 1.0V@0.4ms Pacing Parameters: Mode: DDDR Base/Max Track: 60/130ppm No diaphragmatic stimulation at 10 volts. IMPRESSION 1. Successful pocket formation for Permanent Pacemaker Placement. 2. Successful placement of an atrial sensing and pacing coil into the right atrial appendage. 3. Successful placement of a ventricular sensing and pacing coil in the right ventricular apex. 4. Successful permanent Pacemaker Placement. PLAN 1. Post-op wound care. 2. Follow up office visit. Electronically signed by : Len Joe, 11/25/2020 10:50:21
--- NOTE | 2020-11-24 04:41 | PC.NURSE ---
Pt A&O x4 and has slept well through the night. No c/o pain. Pt NPO since midnight. Able to ambulate independently to the bathroom. Pt has taken a shower independently this AM for procedure. Lungs CTA, on room air. Bowel sounds x4, abd soft and nontender. Pt has been in afib tachycardic on tele. VSS, call light in reach, no concerns at this time.
--- NOTE | 2020-11-24 06:57 | HMH.ACPN2 ---
Internal Medicine - PN: Subj *Date: 11/24/20 *Time: 08:44 Interval history: Patient has no complaints this morning. Overall doing well. Poor sleep but denies chest pain or shortness of breath. Continue to have A. fib on telemetry overnight. Afebrile. Plan for pacemaker placement this morning. Exam Vital signs and Labs for Last 24 Hours: Temp Pulse Resp BP Pulse Ox 98.0 F 68 17 145/84 H 95 11/24/20 04:00 11/24/20 04:00 11/24/20 04:00 11/24/20 04:00 11/24/20 04:00 Laboratory Results - last 24 hr 11/23/20 09:50: WBC 9.1, RBC 5.48, Hgb 16.2, Hct 49.2, MCV 89.6, MCH 29.5, MCHC 32.9, RDW 13.8, Plt Count 289, MPV 7.4, Neut % (Auto) 62.9, Lymph % (Auto) 23.5, [place] % (Auto) 10.9 H, Eos % (Auto) 2.0, Baso % (Auto) 0.8, Neut # (Auto) 5.7, Lymph # (Auto) 2.1, [place] # (Auto) 1.0, Eos # (Auto) 0.2, Baso # (Auto) 0.1 11/23/20 09:50: Troponin I 0.03 11/23/20 09:50: Sodium 139, Potassium 4.3, Chloride 107, Carbon Dioxide 24, Anion Gap 12.3, BUN 16, Creatinine 1.30 H, Estimated GFR 53 L, Est GFR ( Amer) 64, Glucose 93, Calcium 9.3, Total Bilirubin 0.9, AST 32, ALT 27, Alkaline Phosphatase 106, Total Protein 7.4, Albumin 4.1, Globulin 3.3 H, Albumin/Globulin Ratio 1.2 11/23/20 13:00: Troponin I 0.03 11/23/20 16:02: Troponin I 0.03 I & O for Last 24 hours: Intake & Output 11/21/20 11/22/20 11/23/20 11/24/20 22:59 23:59 23:59 23:59 Intake Total 240 / 240 Balance 240 / 240 Weight 112.179 kg 111.385 kg Microbiology Reports for the Last 24 Hours: Microbiology 11/23/20 09:55 Nasopharyngeal Coronavirus COVID-19 PCR - Final Narrative: - *Routine HEENT Exam Head: Present: normocephalic Eye: Present: EOMI, PERRL ENT: Present: mucous membranes moist - *Routine Neck Exam Present: supple. Absent: lymphadenopathy - *Routine Respiratory Exam Present: CTA bilaterally - *Routine Cardiovascular Exam Present: RRR - *Routine Abdominal Exam Present: soft, normoactive bowel sounds. Absent: tenderness - *Routine Extremities Exam Absent: cyanosis, clubbing, edema - *Routine Skin Exam Present: warm. Absent: rash - *Routine Neurological Exam Present: alert, oriented X3 Assessment and Plan (1) Symptomatic bradycardia Status: Acute Category: Medical Code(s): R00.1 - Bradycardia, unspecified (2) New onset a-fib Status: Acute Category: Medical Code(s): I48.91 - Unspecified atrial fibrillation (3) Tachy-neelima syndrome Status: Acute Category: Medical Code(s): I49.5 - Sick sinus syndrome (4) Clamminess Status: Acute Category: Medical Code(s): R23.1 - Pallor (5) Coronary atherosclerosis Status: Chronic Qualifiers: Coronary Disease-Associated Artery/Lesion type: [place] artery [place] vs. transplanted heart: [place] heart Associated angina: without angina Qualified Code(s): I25.10 - Atherosclerotic heart disease of [place] coronary artery without angina pectoris Category: Medical Code(s): I25.10 - Atherosclerotic heart disease of [place] coronary artery without angina pectoris (6) Status post coronary artery stent placement Status: Chronic Category: Surgical Code(s): Z95.5 - Presence of coronary angioplasty implant and graft (7) Hypertension, essential Status: Chronic Category: Medical Code(s): I10 - Essential (primary) hypertension - Assessment and plan all Dx Assessment and Plan for all problems:: Cardiology consulted, pacemaker to be placed today. Further management pending cardiology recommendations. Resume diet after pacer placement Full code
[2020-11-24 07:44] LABS: Basophils # 0.1 K/mm3 (0-0.2); Basophils % 0.7 % (0.1-2.0); Eosinophils # 0.2 K/mm3 (0.0-0.4); Eosinophils % 1.6 % (0.1-12.0); Hematocrit 46.3 % (42.0-52.0); Hemoglobin 15.2 g/dL (14.1-18.0); Lymphocytes # 1.8 K/mm3 (0.7-4.5); Lymphocytes % 17.6 % (10-50); Mean Corpuscular HGB Conc 32.9 g/dL (31.8-35.4); Mean Corpuscular Hemoglobin 29.5 pg (27.0-31.2); Mean Corpuscular Volume 89.6 fl (80-94); Monocytes % 9.3 % (1.7-9.3); Neutrophils # 7.2 K/mm3 (1.8-7.8); Neutrophils % 70.9 % (37.0-80.0); Platelet Count 239 K/mm3 (142-424); Red Blood Count 5.16 M/mm3 (4.60-6.20); White Blood Count 10.2 K/mm3 (4.8-10.8)
[2020-11-24 07:47] LABS: Anion Gap 10.6 mEq/L (5-15); Blood Urea Nitrogen 19 mg/dl (9-20); Calcium 8.9 mg/dl (8.4-10.2); Carbon Dioxide 25 mmol/L (22.0-30.0); Chloride 109 mmol/L (98-107); Creatinine Clearance Estimated 79 mL/min (50-200); Estimated Glomerular Filt Rate 64 ml/min (>60); GFR (African American) 77 ML/MIN (>60); Glucose 107 mg/dl (74-100); Potassium 4.6 mmoL/L (3.5-5.1); Sodium 140 mmol/L (136-145)
[2020-11-24 08:34] LABS: INR 0.91 (0.9-1.1); Prothrombin Time 10.8 seconds (9.4-11.8)
--- NOTE | 2020-11-24 08:40 | P.CONPHA_ITS ---
[facility] Pharmacy VTE Monitoring - Patient Demographics Admission date: 11/24/20 Report Date: 11/24/20 Time: 08:40 Allergies/Adverse Reactions: Patient Allergies No Known Allergies Allergy (Verified 11/02/20 11:16) Height: 1.85 m Weight: 111.385 kg Patient Problems: Current Active Problems Coronary atherosclerosis (Chronic) Hypertension, essential (Chronic) Status post coronary artery stent placement (Chronic) Near syncope (Acute) Tachy-neelima syndrome (Acute) New onset a-fib (Acute) Clamminess (Acute) Symptomatic bradycardia (Acute) - VTE Risk Labs: VTE Related Lab Results Hgb 15.2 g/dL (14.1-18.0) 11/24/20 07:00 Hct 46.3 % (42.0-52.0) 11/24/20 07:00 Plt Count 239 K/mm3 (142-424) 11/24/20 07:00 PT 10.8 seconds (9.4-11.8) 11/24/20 07:00 INR 0.91 (0.9-1.1) 11/24/20 07:00 BUN 19 mg/dl (9-20) 11/24/20 07:00 Creatinine 1.10 mg/dl (0.66-1.25) 11/24/20 07:00 Estimated Creat Clear 79 mL/min (50-200) 11/24/20 07:00 Was VTE Risk Assessment Performed: Yes VTE Score: 5 VTE Risk Level: Low Risk Clinical Trial Participant: No - Prophylaxis VTE Prophylaxis Ordered?: Yes Types of VTE Prophylaxis: IPCS Knee High Location of Applied Device: Bilateral Lower Extremeties
--- NOTE | 2020-11-24 08:48 | HMH.PHAINT ---
home medication list verified with list from cardiology office
--- NOTE | 2020-11-24 10:47 | HMH.PNCARD ---
Subjective Date: 11/24/20 Time: 10:00 Principal diagnosis: tachy-neelima syndrome, symptomatic bradycardia Interval history: This is an 84-year-old gentleman who was a CODE BLUE to the hospital yesterday while in cardiac rehab. The patient went into atrial fibrillation with RVR and had a heart rate around 150. When he converted his heart rate dropped down to 50 bpm and even dropped down in the 40s at a variable rate at times. His blood pressure was 80/40. The patient then went to the emergency department and had episodes of atrial fibrillation while in the emergency department with tachycardia as well. The patient is having tachybradycardia syndrome and symptomatic bradycardia. We are unable to treat the atrial fibrillation with RVR due to the bradycardia he gets when he converts. The patient has been set up for permanent pacemaker placement today. This morning he denies any chest pain or pressure. He denies any shortness of breath or edema. He denies any fever, chills, nausea, vomiting, diarrhea, PND or orthopnea. He remains in atrial fibrillation with a heart rate in the low 100s this morning. Once he has his permanent pacemaker in place we can titrate up his beta-asael to help rate control his atrial fibrillation. Exam Vital signs and Labs for Last 24 Hours: Temp Pulse Resp BP Pulse Ox 98.4 F 110 H 16 130/82 94 L 11/24/20 08:00 11/24/20 08:00 11/24/20 08:00 11/24/20 08:00 11/24/20 08:00 Laboratory Results - last 24 hr 11/23/20 13:00: Troponin I 0.03 11/23/20 16:02: Troponin I 0.03 11/24/20 07:00: WBC 10.2, RBC 5.16, Hgb 15.2, Hct 46.3, MCV 89.6, MCH 29.5, MCHC 32.9, RDW 14.0, Plt Count 239, MPV 7.0 L, Neut % (Auto) 70.9, Lymph % (Auto) 17.6, [place] % (Auto) 9.3, Eos % (Auto) 1.6, Baso % (Auto) 0.7, Neut # (Auto) 7.2, Lymph # (Auto) 1.8, [place] # (Auto) 1.0, Eos # (Auto) 0.2, Baso # (Auto) 0.1 11/24/20 07:00: PT 10.8, INR 0.91 11/24/20 07:00: Sodium 140, Potassium 4.6, Chloride 109 H, Carbon Dioxide 25, Anion Gap 10.6, BUN 19, Creatinine 1.10, Estimated Creat Clear 79, Estimated GFR 64, Est GFR ( Amer) 77 D, Glucose 107 H, Calcium 8.9 I & O for Last 24 hours: Intake & Output 11/21/20 11/22/20 11/23/20 11/24/20 22:59 23:59 23:59 23:59 Intake Total 240 / 240 Output Total 0 / 0 Balance 240 / 240 0 / 0 Weight 247 lb 5 oz 245 lb 9 oz Microbiology Reports for the Last 24 Hours: Microbiology 11/23/20 09:55 Nasopharyngeal Coronavirus COVID-19 PCR - Final Narrative: Telemetry strip shows atrial fibrillation with a rate of 106. - Constitutional no acute distress, obese - *Routine HEENT Exam Head: Present: normocephalic, atraumatic Eye: Present: EOMI, PERRL ENT: Present: mucous membranes moist - *Routine Neck Exam Present: supple, full ROM, normal carotid upstroke. Absent: JVD, carotid bruit, lymphadenopathy - *Routine Respiratory Exam Present: CTA bilaterally - *Routine Cardiovascular Exam Present: RRR, Normal S1, Normal S2. Absent: murmur - *Routine Abdominal Exam Present: soft, normoactive bowel sounds. Absent: tenderness, distended - *Routine Extremities Exam Present: full ROM, pulses intact, normal capillary refill. Absent: cyanosis, clubbing, edema - *Routine Skin Exam Present: intact, warm. Absent: erythema, rash - *Routine Neurological Exam Present: alert, oriented X3, CN II-XII intact. Absent: sensory deficit, motor deficit - Routine Psychiatric Exam Present: normal affect, normal thought process Progress Note: A&P (1) Symptomatic bradycardia Status: Acute (2) New onset a-fib Status: Acute (3) Tachy-neelima syndrome Status: Acute (4) Clamminess Status: Acute (5) Coronary atherosclerosis Status: Chronic (6) Status post coronary artery stent placement Status: Chronic (7) Hypertension, essential Status: Chronic Assessment and Plan for All Diagnoses:: plan: 1. Patient was mated to the hospital after being a CODE
--- NOTE | 2020-11-24 12:01 | PC.NURSE ---
PT down to lab tester @ this time for pacemaker placement.
--- NOTE | 2020-11-24 13:27 | XR_ITS ---
PROCEDURE: XR CHEST PORTABLE CLINICAL HISTORY: Confirm pacemaker/AID placement COMPARISON: No exams were available for comparison FINDINGS: There is a bipolar pacemaker present from left subclavian approach. Right atrial and ventricular leads are. No evidence of pneumothorax. Coronary artery calcifications and/or stents are noted. There is some increased density in the left upper lobe and may be due to summation artifact from the vessels ribs and scapula. IMPRESSION: Status post pacemaker placement as described above with good lead position and no evidence of pneumothorax. Dictated by: Gil Mcfarlane MD 11/24/2020 13:51 Gil Mcfarlane MD in [place] 11/24/2020 13:51
--- NOTE | 2020-11-24 13:39 | HMH.ANESCL ---
[facility] Anesthesia Checklist - Patient Identification Patient Identification: Arm Band - Structural Data Admitted From: Inpatient Planned Operative Procedure/s: dual chamber pacemaker Consent for Planned Operative Procedure(s) Verified: Yes Verified Documents: Surgical Consent, History and Physical - NPO Status Verified Time NPO: 00:00 - Additional verifications Anesthesia Reactions: No - Airway Assessment C-Spine Mobility Assessed: Yes (mp2) TMJ Mobility Assessed: Yes Dentition: Poor Dentition - Neurological Assessment Level of Consciousness: Awake, Alert - Anesthesia Plan Anesthesia Risk discussed: Yes Anesthesia Plan: Verified ASA Class: III Anesthesia Type: MAC [facility] History I have reviewed the patient's past medical history: Yes Medical History: Reports:: Cancer (renal), Coronary Artery Disease, Diabetes Mellitus Type 2, Hyperlipidemia, Hypertension, Myocardial Infarction Denies:: Diabetes Mellitus Type 1 *Have you ever received a pneumonia vaccine?: Yes *Have you received a flu vaccine this season?: Yes Other Medical History: Reports: Arthritis, Hypothyroidism Anesthesia experience/problems:: nac Other Surgeries: Yes: Cancer Surgery, Cardiac Catheterization, Colonoscopy, Coronary Stent, Hernia Repair - *Social History Last grade of school completed: High school graduate Smoking Status: Former smoker Alcohol Intake: never Substance Use Type: denies use *Occupational Status:: retired Housing: house Household Members: spouse *Travel in the last 8 weeks: None Family Hx:: Diabetes, Heart Attack, Hypertension
--- NOTE | 2020-11-24 16:27 | XR_ITS ---
PROCEDURE: XR CHEST PORTABLE CLINICAL HISTORY: PACEMAKER LEAD PLACEMENT COMPARISON: No exams were available for comparison FINDINGS: S/p bipolar pacemaker insertion from left subclavian approach. Good lead placement. No evidence of pneumothorax. There are mild atelectatic changes in the lung bases. The remaining lungs are clear. IMPRESSION: Status post pacemaker placement as described above with good lead position and no evidence of pneumothorax. Dictated by: Gil Mcfarlane MD 11/24/2020 16:50 Gil Mcfarlane MD in [place] 11/24/2020 16:50
--- NOTE | 2020-11-24 20:00 | PC.NURSE ---
Pt has done well post pacemaker placement. VSS. Remains on room air. No c/o being SOA. Pt has two surgical sites to left chest well. Dressing C/D/I. Pt reports soreness, medicated per NOV w/ noted relief. Pt has ambulated in room w/ standby assistance, tolerating activity well. Voiding w/o difficulty. Remains in A-Fib on tely, w/ occasional pacer spikes noted. Call domi w/in reach. Pt's daughter updated on plan of care via telephone. States that she wishes to be here when discharge instructions are given to pt as well as education of any new meds.
[2020-11-25] VITALS: PULSE 80
--- NOTE | 2020-11-25 03:31 | PC.NURSE ---
PT A&O x4 adn has slept well through the night. no c/o pain. lungs CTA, on room air. bowel sounds x4, abd soft and nontender. pt ambulates independently to bathroom, tolerates well. Pt is paced on tele. Pacer incision drsg in c/d/i. IV patent, SL. VSS, call light in reach, no concerns at this time.
[2020-11-25 03:42] VITALS: BP 141/66; PULSE 89; RESP 17; TEMP 36.8; O2SAT 95
[2020-11-25 04:55] VITALS: BMI 32.1
[2020-11-25 05:00] VITALS: PULSE 80
[2020-11-25 08:00] VITALS: BP 156/76; PULSE 18; PULSE 72; PULSE 80; TEMP 37.7; O2SAT 94
--- NOTE | 2020-11-25 08:01 | HMH.DCSUM ---
General - General Admission date:: 11/23/20 Discharge date: 11/25/20 HPI HPI: This is an 84-year-old white gentleman who had a CODE BLUE while at the hospital today in cardiac rehab. The patient states that he was sitting down waiting to do his next exercise when he had sudden onset of nausea and sweatiness. He states that he felt a bit clammy and was having cold sweats. He states that he kind of felt that way when he woke up this morning but came on to the hospital for cardiac rehab anyway. He states that while he was sitting there his symptoms got worse. He states then he kind of just fell over out of his chair because he felt so poorly. He states that he remained conscious throughout the entire event. He never lost consciousness or had a syncopal episode. A CODE BLUE was called. He did have atrial fibrillation with RVR on the monitor. His heart rate was around 150 bpm. His blood pressure was 80/40. Dr. Joe did respond to the CODE BLUE. The patient was in atrial fibrillation with RVR and tachycardia. He states that he did convert to sinus rhythm and his heart rate was 50 and did drop down in the 40s as well. He denies any chest pain or pressure. He denies any shortness of breath or edema. He denies any fever, vomiting, diarrhea, PND or orthopnea. His initial troponin is negative. 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 Above note per cardiology, patient feels asymptomatic currently on examination. Hospital Course Hospital Course: Admit patient was admitted, given symptomatic bradycardia and tachyarrhythmia he was subjected to pacemaker implantation, did well with this and overnight had no problems. This morning he was doing great and had no problems. He will be discharged home with close follow-up with my office and with cardiology. Objective Vital signs: Temp Pulse Resp BP Pulse Ox 98.2 F 80 17 141/66 H 95 11/25/20 03:42 11/25/20 05:00 11/25/20 03:42 11/25/20 03:42 11/25/20 03:42 no acute distress - *Routine HEENT Exam Head: Present: normocephalic Eye: Present: EOMI, PERRL ENT: Present: mucous membranes moist - *Routine Neck Exam Present: supple - Routine Chest/Breast/Axilla Exam Chest wall: Present: pacemaker Comments: Dressings are clean and dry. - *Routine Respiratory Exam Present: CTA bilaterally - *Routine Cardiovascular Exam Present: RRR - *Routine Abdominal Exam Present: soft, normoactive bowel sounds. Absent: tenderness - *Routine Extremities Exam Absent: cyanosis, clubbing, edema - *Routine Skin Exam Present: warm. Absent: rash - Detailed Eye Exam Eyelids: Bilateral normal inspection Results Labs on day of discharge: Labs from last 24 hours 11/24/20 07:00 PT 10.8 INR 0.91 DS: Diagnosis - Discharge Diagnosis (1) Symptomatic bradycardia Status: Resolved (2) New onset a-fib Status: Acute (3) Tachy-neelima syndrome Status: Acute (4) Clamminess Status: Acute (5) Coronary atherosclerosis Status: Chronic (6) Status post coronary artery stent placement Status: Chronic (7) Hypertension, essential Status: Chronic Discharge Plan - Patient Discharge Instructions ACTIVITY: Continue current activity, No heavy lifting DIET: continue same diet Patient Instructions: Atrial Fibrillation, Pacemaker Insertion, DI for Pacemaker Insertion, DI for Atrial Fibrillation, Surgical Site Infection - Follow up Plan Follow up with: Kelvin Mcallister MD [Primary Care Provider] - 11/28/20 Len Joe MD [Staff Physician] - 1 week Disposition: Home, Self-[facility] Medications: Home Medications Medication Instructions Recorded Confirmed Type Amlodipine Besylate [Norvasc 10mg 10 mg PO DAILY 10/14/20 11/24/20 History tablet] Aspirin [Aspirin 81mg EC Tab] 81 mg PO DAILY 10/14/20 11/24/20 History Cyanocobalamin (Vitam
[2020-11-25 08:41] VITALS: PULSE 91
--- NOTE | 2020-11-25 09:00 | HMH.PNCARD ---
Subjective Date: 11/25/20 Time: 08:45 Principal diagnosis: tachy-neelima syndrome, symptomatic bradycardia Interval history: This is an 84-year-old gentleman who is status post permanent pacemaker placement for tachybradycardia syndrome and symptomatic bradycardia. He tolerated the procedure well. No signs of infection at the pacemaker site. This morning he denies any chest pain or pressure. He denies any shortness of breath or edema. He denies any fever, chills, nausea, vomiting, diarrhea, PND or orthopnea. He remains in atrial fibrillation. He is rate controlled this morning with the addition of bisoprolol and digoxin. He is scheduled to be discharged home today. Exam Vital signs and Labs for Last 24 Hours: Temp Pulse Resp BP Pulse Ox 99.9 F H 91 H 17 156/76 H 94 L 11/25/20 08:00 11/25/20 08:41 11/25/20 03:42 11/25/20 08:00 11/25/20 08:00 I & O for Last 24 hours: Intake & Output 11/22/20 11/23/20 11/24/20 11/25/20 23:59 23:59 23:59 23:59 Intake Total 240 / 240 240 / 240 240 / 240 Output Total 0 / 0 Balance 240 / 240 240 / 240 240 / 240 Weight 247 lb 5 oz 245 lb 9 oz 242 lb 4 oz Narrative: Telemetry strip is atrial fibrillation with a rate of 80 and intermittent V pacing - Constitutional no acute distress, obese - *Routine HEENT Exam Head: Present: normocephalic, atraumatic Eye: Present: EOMI, PERRL ENT: Present: mucous membranes moist - *Routine Neck Exam Present: supple, full ROM, normal carotid upstroke. Absent: JVD, carotid bruit, lymphadenopathy - *Routine Respiratory Exam Present: CTA bilaterally - *Routine Cardiovascular Exam Present: Normal S1, Normal S2, irregularly irregular. Absent: murmur - *Routine Abdominal Exam Present: soft, normoactive bowel sounds. Absent: tenderness, distended, rebound - *Routine Extremities Exam Present: full ROM, pulses intact, normal capillary refill. Absent: cyanosis, clubbing, edema - *Routine Skin Exam Present: intact, warm. Absent: erythema, rash - *Routine Neurological Exam Present: alert, oriented X3, CN II-XII intact. Absent: sensory deficit, motor deficit Progress Note: A&P (1) Symptomatic bradycardia Status: Resolved (2) New onset a-fib Status: Acute (3) Tachy-neelima syndrome Status: Acute (4) Clamminess Status: Acute (5) Coronary atherosclerosis Status: Chronic (6) Status post coronary artery stent placement Status: Chronic (7) Hypertension, essential Status: Chronic (8) Pacemaker Status: Acute Assessment and Plan for All Diagnoses:: plan: 1. The patient was admitted to the hospital after being a CODE BLUE while in cardiac rehab. The patient was nauseous clammy and had cold sweats. He fell to the floor but did not lose consciousness. The patient was in atrial fibrillation with RVR and had a heart rate around 150. When he did convert back to sinus rhythm his heart rate is in the low 50s and down in the 40s. The patient was then admitted to the hospital for tachybradycardia syndrome and symptomatic bradycardia. He then subsequently went back into atrial fibrillation and was tachycardic. He has underwent permanent pacemaker placement for the tachybradycardia syndrome. He tolerated the procedure well. There are no signs of infection at the pacemaker site. 2. The patient was started on bisoprolol and loaded with digoxin yesterday. His heart rate has improved. We will continue bisoprolol 10 mg daily and digoxin 0.125 mg daily for rate control of his atrial fibrillation. His Coreg was stopped. 3. Coronary artery disease is likely stable. He denies any chest pain or pressure. Continue Plavix 75 mg daily 4. His blood pressure is slightly elevated this morning. We will get him restarted on his losartan. His Norvasc has been stopped. 5. LDL goal is less than 55. 6. The patient is in atrial fibrillation. He will require long-term anticoagulation. The patient will need to start Xar
--- NOTE | 2020-11-25 12:09 | PC.NURSE ---
teaching done with patient on surgical site infections, pacemaker care, medications. medications sent to clinic employee pharmacy per patient request. educated on meds already taken. follow up apts given.
== END 2020-11-25 11:25 | disposition home or self-care (01) | DRG 244 ==
LOC: ER 12:30 → 2ND 12:46
PROVIDERS: Internal Medicine; Admitting Provider Internal Medicine Adolescent Medicine; Emergency Provider Family Medicine; PCP Internal Medicine Adolescent Medicine; Visit Provider Internal Medicine Adolescent Medicine
PROC: 0JH636Z Insertion of Pacemaker, Dual Chamber into Chest Subcutaneous Tissue and Fascia, Percutaneous Approach (ICD-10-PCS; principal; 2020-11-24 09:45)
DX: I49.5 Sick sinus syndrome (principal); I48.91 Unspecified atrial fibrillation; Z79.02 Long term (current) use of antithrombotics/antiplatelets; I10 Essential (primary) hypertension; Z95.5 Presence of coronary angioplasty implant and graft; Z79.899 Other long term (current) drug therapy; E03.9 Hypothyroidism, unspecified
CPT/HCPCS: 33208; 36415; 70450; 71045; 80048; 80053; 84484; 85025; 85610; 93005; 96365; 99284; C1785; C1898; U0003

== ENCOUNTER → 2021-05-05 11:19 | Outpatient (CLI) | payer BC, SELFPAY ==
[2021-05-05 11:47] LABS: Basophils # 0.1 K/mm3 (0-0.2); Basophils % 0.8 % (0.1-2.0); Eosinophils # 0.1 K/mm3 (0.0-0.4); Eosinophils % 1.7 % (0.1-12.0); Hematocrit 48.8 % (42.0-52.0); Lymphocytes # 1.5 K/mm3 (0.7-4.5); Mean Corpuscular HGB Conc 32.7 g/dL (31.8-35.4); Mean Corpuscular Volume 91.8 fl (80-94); Mean Platelet Volume 7.3 fl (7.4-10.4); Monocytes # 0.8 K/mm3 (0.1-1.0); Monocytes % 9.5 % (1.7-9.3); Neutrophils # 5.7 K/mm3 (1.8-7.8); Neutrophils % 70.1 % (37.0-80.0); Platelet Count 265 K/mm3 (142-424); Red Blood Count 5.32 M/mm3 (4.60-6.20); Red Cell Distribution Width 14.1 % (11.5-17.5); White Blood Count 8.1 K/mm3 (4.8-10.8)
[2021-05-05 12:31] LABS: Chloride 103 mmol/L (98-107); Potassium 4.6 mmoL/L (3.5-5.1); Sodium 139 mmol/L (136-145)
[2021-05-05 12:33] LABS: Blood Urea Nitrogen 13 mg/dl (9-20)
[2021-05-05 12:34] LABS: Alanine Aminotransferase 23 U/L (12-78); Albumin Level 3.7 g/dl (3.5-5.0); Albumin/Globulin Ratio 1.4 (1.1-1.8); Alkaline Phosphatase 92 U/L (38-126); Anion Gap 15.6 mEq/L (5-15); Aspartate Amino Transferase 28 U/L (17-59); Bilirubin,Total 1.1 mg/dl (0.2-1.3); Carbon Dioxide 25 mmol/L (22.0-30.0); Cholesterol 114 mg/dl (140-200); Estimated Glomerular Filt Rate 64 ml/min (>60); GFR (African American) 77 ML/MIN (>60); Globulin 2.7 g/dL (1.3-3.2); Total Protein,Serum 6.4 g/dl (6.3-8.2); Triglycerides 124 mg/dl (30-150); VLDL Cholesterol 25 mg/dL (0-40)
[2021-05-05 12:35] LABS: Calcium 8.9 mg/dl (8.4-10.2); Chol/HDL Ratio 3.2 (1-3.5); Glucose 83 mg/dl (74-100); HDL Cholesterol 36 mg/dl (40-60)
[2021-05-05 12:46] LABS: Direct LDL Cholesterol 62.85 mg/dL (100-129)
[2021-05-05 13:05] LABS: Thyroid Stimulating Hormone 2.98 uIU/mL (0.465-4.68)
== END ==
PROVIDERS: Visit Provider Internal Medicine Adolescent Medicine
DX: I25.10 Atherosclerotic heart disease of native coronary artery without angina pectoris (principal); E03.9 Hypothyroidism, unspecified; Z85.528 Personal history of other malignant neoplasm of kidney
CPT/HCPCS: 36415; 80053; 80061; 84443; 85025

== ENCOUNTER → 2021-05-20 11:35 | Outpatient (CLI) | payer BC, SELFPAY ==
[2021-05-20 11:56] LABS: Basophils # 0.1 K/mm3 (0-0.2); Basophils % 1.1 % (0.1-2.0); Eosinophils # 0.2 K/mm3 (0.0-0.4); Eosinophils % 2.3 % (0.1-12.0); Hematocrit 50.4 % (42.0-52.0); Hemoglobin 16.4 g/dL (14.1-18.0); Lymphocytes # 1.5 K/mm3 (0.7-4.5); Lymphocytes % 17.8 % (10-50); Mean Corpuscular HGB Conc 32.5 g/dL (31.8-35.4); Mean Corpuscular Hemoglobin 30.5 pg (27.0-31.2); Mean Corpuscular Volume 93.8 fl (80-94); Mean Platelet Volume 7.9 fl (7.4-10.4); Monocytes # 0.9 K/mm3 (0.1-1.0); Monocytes % 10.6 % (1.7-9.3); Neutrophils # 5.8 K/mm3 (1.8-7.8); Neutrophils % 68.2 % (37.0-80.0); Platelet Count 281 K/mm3 (142-424); Red Blood Count 5.37 M/mm3 (4.60-6.20); Red Cell Distribution Width 13.5 % (11.5-17.5); White Blood Count 8.5 K/mm3 (4.8-10.8)
[2021-05-20 12:01] LABS: Chloride 103 mmol/L (98-107)
[2021-05-20 12:02] LABS: Sodium 139 mmol/L (136-145)
[2021-05-20 12:04] LABS: Alanine Aminotransferase 21 U/L (12-78); Albumin Level 4.1 g/dl (3.5-5.0); Albumin/Globulin Ratio 1.3 (1.1-1.8); Alkaline Phosphatase 90 U/L (38-126); Aspartate Amino Transferase 34 U/L (17-59); Bilirubin,Total 0.9 mg/dl (0.2-1.3); Blood Urea Nitrogen 13 mg/dl (9-20); Carbon Dioxide 28 mmol/L (22.0-30.0); Estimated Glomerular Filt Rate 64 ml/min (>60); GFR (African American) 77 ML/MIN (>60); Globulin 3.1 g/dL (1.3-3.2); Glucose 91 mg/dl (74-100); Total Protein,Serum 7.2 g/dl (6.3-8.2)
== END ==
PROVIDERS: Visit Provider Internal Medicine Adolescent Medicine
DX: I25.10 Atherosclerotic heart disease of native coronary artery without angina pectoris (principal); K92.1 Melena
CPT/HCPCS: 36415; 80053; 85025

== ENCOUNTER → 2021-06-24 13:36 | Outpatient (CLI) | payer BC, SELFPAY ==
[2021-06-24 13:49] LABS: Basophils # 0.1 K/mm3 (0-0.2); Basophils % 0.9 % (0.1-2.0); Eosinophils # 0.1 K/mm3 (0.0-0.4); Eosinophils % 1.5 % (0.1-12.0); Hematocrit 51.1 % (42.0-52.0); Hemoglobin 16.8 g/dL (14.1-18.0); Lymphocytes # 1.5 K/mm3 (0.7-4.5); Lymphocytes % 16.5 % (10-50); Mean Corpuscular HGB Conc 32.8 g/dL (31.8-35.4); Mean Corpuscular Hemoglobin 30.6 pg (27.0-31.2); Mean Corpuscular Volume 93.5 fl (80-94); Mean Platelet Volume 7.6 fl (7.4-10.4); Monocytes # 0.8 K/mm3 (0.1-1.0); Monocytes % 8.6 % (1.7-9.3); Neutrophils # 6.4 K/mm3 (1.8-7.8); Neutrophils % 72.5 % (37.0-80.0); Platelet Count 294 K/mm3 (142-424); Red Blood Count 5.47 M/mm3 (4.60-6.20); Red Cell Distribution Width 13.6 % (11.5-17.5); White Blood Count 8.9 K/mm3 (4.8-10.8)
[2021-06-24 14:37] LABS: Anion Gap 12.6 mEq/L (5-15); Blood Urea Nitrogen 14 mg/dl (9-20); Calcium 9.3 mg/dl (8.4-10.2); Carbon Dioxide 28 mmol/L (22.0-30.0); Chloride 104 mmol/L (98-107); Estimated Glomerular Filt Rate 71 ml/min (>60); GFR (African American) 86 ML/MIN (>60); Glucose 90 mg/dl (74-100); Potassium 4.6 mmoL/L (3.5-5.1); Sodium 140 mmol/L (136-145)
== END ==
PROVIDERS: Visit Provider Internal Medicine Cardiovascular Disease
DX: Z01.812 Encounter for preprocedural laboratory examination (principal); Z20.822 Contact with and (suspected) exposure to COVID-19; I25.10 Atherosclerotic heart disease of native coronary artery without angina pectoris; I10 Essential (primary) hypertension; I35.1 Nonrheumatic aortic (valve) insufficiency; I48.91 Unspecified atrial fibrillation; I49.5 Sick sinus syndrome; R19.5 Other fecal abnormalities; Z79.01 Long term (current) use of anticoagulants; Z95.0 Presence of cardiac pacemaker
CPT/HCPCS: 36415; 80048; 85025; C9803; U0003; U0005

== ENCOUNTER 2021-06-25 07:49 | Day surgery (SDC) | payer BC, MEDICARE, SELFPAY ==
[2021-06-25 08:03] VITALS: BMI 31.1
[2021-06-25 08:18] VITALS: BP 159/82; PULSE 88; RESP 19; TEMP 36.8; O2SAT 95
[2021-06-25 08:25] VITALS: PULSE 71
[2021-06-25 08:26] VITALS: BP 159/82; PULSE 60; RESP 19; O2SAT 93
[2021-06-25 08:27] VITALS: PULSE 68
--- NOTE | 2021-06-25 08:34 | ECG_ITS ---
APPROVED REPORT Exam: Resting ECG HR:60 bpm ECG Measurements Heart Rate 60 AXES ME 230 P -47 QRSd 136 QRS 30 QT 416 T 247 QTc 416 Conclusion Electronic atrial pacemaker Abnormal ECG Electronically signed by : Kelvin Mcallister MD 06/26/2021 08:57:58
--- NOTE | 2021-06-25 08:36 | P.PN_ITS ---
[facility] Anesthesia Checklist - Patient Identification Patient Identification: Arm Band - Structural Data Admitted From: Home Planned Operative Procedure/s: cardioversion Consent for Planned Operative Procedure(s) Verified: Yes Verified Documents: Surgical Consent, History and Physical - NPO Status Verified Time NPO: 00:00 - Additional verifications Anesthesia Reactions: No - Airway Assessment C-Spine Mobility Assessed: Yes (mp2) TMJ Mobility Assessed: Yes Dentition: Dentures-good fit - Neurological Assessment Level of Consciousness: Awake, Alert - Anesthesia Plan Anesthesia Risk discussed: Yes Anesthesia Plan: Verified ASA Class: III Anesthesia Type: MAC [facility] History I have reviewed the patient's past medical history: Yes Medical History: Reports:: Cancer, Coronary Artery Disease, Diabetes Mellitus Type 2, Hyperlipidemia, Hypertension, Internal Pacemaker, Myocardial Infarction Denies:: Diabetes Mellitus Type 1 *Have you ever received a pneumonia vaccine?: Yes *Have you received a flu vaccine this season?: No Other Medical History: Reports: Arthritis, Hypothyroidism Anesthesia experience/problems:: nac Other Surgeries: Yes: Cancer Surgery, Cardiac Catheterization, Colonoscopy, Coronary Stent, Hernia Repair, Pacemaker - *Social History Smoking Status: Former smoker Alcohol Intake: never Substance Use Type: denies use *Occupational Status:: retired Housing: house Household Members: spouse *Travel in the last 8 weeks: None Family Hx:: Diabetes, Heart Attack, Hypertension
--- NOTE | 2021-06-25 08:36 | HMH.CARDIO ---
[facility] Cardioversion Date: 06/25/21 Provider:: TAHIR Hudson Procedure Performed:: synchronized electrical cardioversion Diagnosis:: A. fibrillation Procedure Summary:: Patient was brought to the cardiac [employer] as an outpatient. After informed consent was obtained, anesthesia provided sedation after which patient received a single synchronized electrical shock at 200 J which converted him from atrial fibrillation to paced AV rhythm. Patient tolerated the procedure without complications. Complications:: None Conculsion:: Successful electrical cardioversion from atrial fibrillation to sinus/paced rhythm
[2021-06-25 08:45] VITALS: BP 99/46; PULSE 60; RESP 13; O2SAT 95
== END 2021-06-25 09:30 | disposition home or self-care (01) ==
LOC: CATHLAB 07:51
PROVIDERS: PCP Internal Medicine Adolescent Medicine; Visit Provider Internal Medicine Cardiovascular Disease
DX: I48.20 Chronic atrial fibrillation, unspecified (principal); Z79.899 Other long term (current) drug therapy; I25.10 Atherosclerotic heart disease of native coronary artery without angina pectoris; Z79.01 Long term (current) use of anticoagulants; I10 Essential (primary) hypertension; Z95.5 Presence of coronary angioplasty implant and graft; Z95.0 Presence of cardiac pacemaker; E11.9 Type 2 diabetes mellitus without complications
CPT/HCPCS: 92960; 93005

== ENCOUNTER 2022-08-18 05:56 | Day surgery (SDC) | payer BC, SELFPAY ==
[2022-08-16 10:20] VITALS: BMI 28.8
--- NOTE | 2022-08-16 10:32 | SUR.PREOP ---
Clarified with BJ in Dr. David's office -ok for pt to remain on Xarelto and Plavix and note is written on MD order.DtrGalina, notified
--- NOTE | 2022-08-18 06:25 | ECG_ITS ---
APPROVED REPORT Exam: Resting ECG HR:60 bpm ECG Measurements Heart Rate 60 AXES [place] 316 P 267 QRSd 153 QRS 84 QT 433 T 0 QTc 433 Conclusion ELECTRONIC ATRIAL PACEMAKER LEFT BUNDLE BRANCH BLOCK [120+ ms QRS DURATION, 80+ ms Q/S IN V1/V2, 85+ ms R IN I/aVL/V5/V6] ABNORMAL ECG UNCONFIRMED REPORT Electronically signed by : Kelvin Mcallister MD 08/18/2022 20:16:23
[2022-08-18 06:31] VITALS: BP 172/65; PULSE 92; RESP 18; TEMP 36.4; O2SAT 95
[2022-08-18 06:48] LABS: Basophils # 0.1 K/mm3 (0-0.2); Basophils % 0.8 % (0.1-2.0); Eosinophils # 0.3 K/mm3 (0.0-0.4); Eosinophils % 3.2 % (0.1-12.0); Hematocrit 42.8 % (42.0-52.0); Hemoglobin 13.9 g/dL (14.1-18.0); Lymphocytes # 1.3 K/mm3 (0.7-4.5); Lymphocytes % 15.8 % (10-50); Mean Corpuscular HGB Conc 32.4 g/dL (31.8-35.4); Mean Corpuscular Hemoglobin 29.2 pg (27.0-31.2); Mean Corpuscular Volume 90.3 fl (80-94); Mean Platelet Volume 7.4 fl (7.4-10.4); Monocytes # 0.8 K/mm3 (0.1-1.0); Monocytes % 9.4 % (1.7-9.3); Neutrophils # 5.9 K/mm3 (1.8-7.8); Neutrophils % 70.8 % (37.0-80.0); Platelet Count 278 K/mm3 (142-424); Red Blood Count 4.75 M/mm3 (4.60-6.20); Red Cell Distribution Width 13.6 % (11.5-17.5); White Blood Count 8.4 K/mm3 (4.8-10.8)
[2022-08-18 06:53] LABS: Chloride 108 mmol/L (98-107)
[2022-08-18 06:54] LABS: Potassium 3.9 mmoL/L (3.5-5.1); Sodium 143 mmol/L (136-145)
[2022-08-18 06:56] LABS: Blood Urea Nitrogen 19 mg/dl (9-20); Creatinine Clearance Estimated 59 mL/min (50-200); Estimated Glomerular Filt Rate 52 ml/min (>60); GFR (African American) 63 ML/MIN (>60)
[2022-08-18 06:57] LABS: Anion Gap 10.9 mEq/L (5-15); Calcium 8.7 mg/dl (8.4-10.2); Carbon Dioxide 28 mmol/L (22.0-30.0); Glucose 102 mg/dl (74-100)
--- NOTE | 2022-08-18 07:16 | P.PN_ITS ---
[facility] Disclaimer: The information contained in this section may have been updated after the patient was seen, as this information can be updated by other users. Medical History Atrial fibrillation CAD (coronary artery disease) Daytime somnolence Dyspnea Essential hypertension History of heart attack History of pacemaker Hyperlipidemia Hypertension Hyperthyroidism Symptomatic bradycardia Surgical History (Updated 08/18/22 @ 06:30 by Gabbie Roman RN) History of permanent cardiac pacemaker placement Hx of kidney removal Status post coronary artery stent placement Family History Other Family history of cancer Social History Smoking Status: Former smoker alcohol intake: never substance use type: denies use current occupational status: retired Travel in the last 8 weeks: None household members: spouse housing: house caffeine: Yes [facility] Anesthesia Checklist Patient Identification Patient Identification: Arm Band Structural Data Admitted From: Home Planned Operative Procedure/s: Excision of Skin lesions on back Consent for Planned Operative Procedure(s) Verified: Yes Verified Documents: Surgical Consent and History and Physical NPO Status Verified Time NPO: 00:00 Additional verifications Anesthesia Reactions: No Hx Blood Transfusions: No Blood Transfusion Reaction: No Airway Assessment C-Spine Mobility Assessed: Yes TMJ Mobility Assessed: Yes Dentition: Poor Dentition Neurological Assessment Level of Consciousness: Awake and Alert Anesthesia Plan Anesthesia Risk discussed: Yes Anesthesia Plan: Verified ASA Class: III Anesthesia Type: MAC
[2022-08-18 08:02] VITALS: BP 165/82; PULSE 77; RESP 16; TEMP 36.6; O2SAT 95
--- NOTE | 2022-08-18 08:02 | EXP.OP.NOTE ---
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 Get he was transferred to a right lateral decubitus position. Monitored anesthesia care ensued. His left posterior shoulder was prepped and draped in a sterile fashion. After infiltration local anesthetic an elliptical incision was made around the lesion. The deep subcutaneous tissue was sharply dissected. Dissection continued to just above the fascial margin (fashion not excised). The lesion was marked for orientation prior to being excised in toto and passed off for pathologic evaluation. Electrocautery was utilized to achieve hemostasis. Skin was reapproximated with interrupted 4-0 nylon. Dressings were applied and the patient was transferred to recovery in stable condition. Condition: stable Disposition: PACU Specimens:: Left posterior shoulder skin lesion Complications:: No immediate
[2022-08-18 08:12] VITALS: BP 185/84; PULSE 71; RESP 18; O2SAT 96
[2022-08-18 08:22] VITALS: BP 170/75; PULSE 72; RESP 17; O2SAT 95
[2022-08-18 08:39] VITALS: BP 167/78; PULSE 86; RESP 18; O2SAT 96
== END 2022-08-18 08:40 | disposition home or self-care (01) ==
PROVIDERS: PCP Internal Medicine Adolescent Medicine; Visit Provider Surgery
PROC: (CPT 11606; principal; 2022-08-18 07:30)
DX: C44.619 Basal cell carcinoma of skin of left upper limb, including shoulder (principal); L82.1 Other seborrheic keratosis; Z79.899 Other long term (current) drug therapy
CPT/HCPCS: 11606; 36415; 80048; 85025; 88305; 93005; 96374

== ENCOUNTER → 2022-08-30 08:22 | Outpatient (POV) | payer BC, SELFPAY | PROVIDERS: Visit Provider Dermatology | DX: Z00.00 Encounter for general adult medical examination without abnormal findings (principal) ==

== ENCOUNTER → 2022-09-27 07:54 | Outpatient (POV) | payer BC, SELFPAY | PROVIDERS: Visit Provider Dermatology | DX: Z00.00 Encounter for general adult medical examination without abnormal findings (principal) ==

== ENCOUNTER 2022-11-03 18:22 | Observation (INO) | payer BC, MEDICARE, SELFPAY ==
[2022-11-03] VITALS (9 sets, daily range): BP systolic 154–179; BP diastolic 69–106; PULSE 75–106; RESP 16–22; TEMP 36.6–36.9; O2SAT 91–94; BMI 29.8; BMI 29.0
--- NOTE | 2022-11-03 18:34 | XR_ITS ---
PROCEDURE INFORMATION: Exam: XR Chest Exam date and time: 11/03/2022 6:56 PM Age: 86 years old Clinical indication: Other: Congestion TECHNIQUE: Imaging protocol: Radiologic exam of the chest. Views: 1 view. COMPARISON: CR XR CHEST PORTABLE 11/24/2020 4:36 PM FINDINGS: Lungs: There is pulmonary vascular redistribution indicating elevated central venous pressure. There is right perihilar pulmonary congestion that may represent atypical pattern of CHF but should be followed to exclude underlying pathology. Left lung field is relatively clear. Pleural spaces: Unremarkable. No pleural effusion. No pneumothorax. Heart/Mediastinum: Cardiac silhouette is borderline enlarged. Dual electrode pacemaker unchanged in position projecting right atrium and right ventricle. Bones/joints: Unremarkable for age. IMPRESSION: Interval development of asymmetric pulmonary congestion right lung that may represent atypical appearance of CHF which continued follow-up is advised.
[2022-11-03 18:47] LABS: Coronavirus 19, PCR Not Detected (NotDetected); Influenza A, PCR Not Detected (NotDetected); Influenza B, PCR Not Detected (NotDetected)
[2022-11-03 18:48] LABS: Chloride 109 mmol/L (98-107)
--- NOTE | 2022-11-03 18:48 | ECG_ITS ---
APPROVED REPORT Exam: Resting ECG HR:87 bpm ECG Measurements Heart Rate 87 AXES SD 250 P -85 QRSd 181 QRS 75 QT 395 T 90 QTc 440 Conclusion ECTOPIC ATRIAL RHYTHM WITH FIRST DEGREE AV BLOCK LEFT BUNDLE BRANCH BLOCK [120+ ms QRS DURATION, 80+ ms Q/S IN V1/V2, 85+ ms R IN I/aVL/V5/V6] ABNORMAL ECG UNCONFIRMED REPORT Electronically signed by : Kelvin Mcallister MD 11/05/2022 20:02:15
[2022-11-03 18:49] LABS: Potassium 3.7 mmoL/L (3.5-5.1); Sodium 139 mmol/L (136-145)
[2022-11-03 18:52] LABS: Anion Gap 8.7 mEq/L (5-15); Blood Urea Nitrogen 15 mg/dl (9-20); Calcium 8.3 mg/dl (8.4-10.2); Carbon Dioxide 25 mmol/L (22.0-30.0); Creatinine Clearance Estimated 59 mL/min (50-200); Estimated Glomerular Filt Rate 52 ml/min (>60); GFR (African American) 63 ML/MIN (>60); Glucose 99 mg/dl (74-100)
[2022-11-03 18:53] LABS: Basophils # 0.1 K/mm3 (0-0.2); Basophils % 1.1 % (0.1-2.0); Eosinophils # 0.3 K/mm3 (0.0-0.4); Eosinophils % 3.9 % (0.1-12.0); Hematocrit 45.2 % (42.0-52.0); Hemoglobin 14.3 g/dL (14.1-18.0); Lymphocytes # 1.7 K/mm3 (0.7-4.5); Lymphocytes % 20.2 % (10-50); Mean Corpuscular HGB Conc 31.7 g/dL (31.8-35.4); Mean Corpuscular Hemoglobin 28.3 pg (27.0-31.2); Mean Corpuscular Volume 89.3 fl (80-94); Mean Platelet Volume 7.5 fl (7.4-10.4); Monocytes # 0.8 K/mm3 (0.1-1.0); Monocytes % 9.5 % (1.7-9.3); Neutrophils # 5.5 K/mm3 (1.8-7.8); Neutrophils % 65.3 % (37.0-80.0); Platelet Count 290 K/mm3 (142-424); Red Blood Count 5.06 M/mm3 (4.60-6.20); Red Cell Distribution Width 13.8 % (11.5-17.5); White Blood Count 8.5 K/mm3 (4.8-10.8)
--- NOTE | 2022-11-03 19:00 | PC.NURSE ---
pt states no complaints at this time, family at bedside
[2022-11-03 19:04] LABS: Troponin I 0.18 ng/ml (0.00-0.034)
--- NOTE | 2022-11-03 19:27 | HMH.EDGENADL ---
Discharge Plan Disposition Patient Disposition: Admitted As Inpatient Prescriptions Prescriptions: No Action memantine 10 mg tablet 10 mg PO DAILY escitalopram oxalate 10 mg tablet 10 mg PO DAILY digoxin 125 mcg (0.125 mg) tablet 125 mcg PO DAILY Qty: 90 3RF atorvastatin 40 MG tablet 40 mg PO HS clopidogrel 75 MG tablet 75 mg PO DAILY losartan 100 MG tablet 100 mg PO DAILY levothyroxine 50 MCG tablet 50 mcg PO DAILY rivaroxaban 20 MG tablet 20 mg PO DAILY pantoprazole [Protonix] 40 mg tablet,delayed release (DR/EC) 40 mg PO DAILY Referrals Follow up/Referrals: Kelvin Mcallister MD [Primary Care Provider] - See instructions Clinical Impressions Clinical Impression: CAP (community acquired pneumonia), Acute respiratory failure with hypoxemia Discharge ED Provider: Alana Reed General Adult HPI General Chief complaint: Shortness of Breath/Dyspnea Stated complaint: Ams , congested Time Seen by Provider: 11/03/22 19:27 Mode of Arrival: EMS Source of Information: Patient Limitations: No Limitations Description of Symptoms (Recalled from ER Triage Doc. by RN): Pt's had hypoxic episode at home, sats 88-90% and dtr reported AMS, pt recuperated and only c/o congestion, EMV 15 NAD at present History of Present Illness HPI narrative: Patient is an 86-year-old male with a history of coronary disease with an AICD no history of COPD who presents today with shortness of breath cough and wheezing over the last few days. He states that he feels similar to how he had COVID in the past. Denies any lower extremity edema denies any orthopnea. Denies any history of reactive airway disease. Was brought in by EMS and his room air oxygen saturations were in the low 80s he does not take supplemental oxygen. He was placed on 2 L and oxygen saturations normalized into the low 90s. He says after that he feels much better. Related Data Home Medications Medication Instructions Recorded Confirmed levothyroxine 50 mcg tablet 50 mcg PO DAILY thyroid 10/14/20 08/24/22 losartan 100 mg tablet 100 mg PO DAILY Hypertension 10/14/20 08/24/22 atorvastatin 40 mg tablet 40 mg PO HS cholesterol 11/24/20 08/24/22 clopidogrel 75 mg tablet 75 mg PO DAILY antiplatelet 11/24/20 08/24/22 escitalopram oxalate 10 mg tablet 10 mg PO DAILY Depression 04/26/21 08/24/22 rivaroxaban 20 mg tablet 20 mg PO DAILY Blood thinner 06/25/21 08/24/22 memantine 10 mg tablet 10 mg PO DAILY memory 07/29/22 08/24/22 pantoprazole 40 mg tablet,delayed 40 mg PO DAILY acid reflux 08/16/22 08/24/22 release (Protonix) Previous Rx's Medication Instructions Recorded digoxin 125 mcg (0.125 mg) tablet 125 mcg PO DAILY heart rate #90 03/03/22 tabs Allergies Allergy/AdvReac Type Severity Reaction Status Date / Time No Known Allergies Allergy Verified 08/24/22 13:03 [facility] Disclaimer: The information contained in this section may have been updated after the patient was seen, as this information can be updated by other users. Medical History Atrial fibrillation CAD (coronary artery disease) Daytime somnolence Dyspnea Essential hypertension History of heart attack History of pacemaker Hyperlipidemia Hypertension Hyperthyroidism Symptomatic bradycardia Surgical History History of permanent cardiac pacemaker placement Hx of kidney removal left partial removal CA Status post coronary artery stent placement Family History Other Family history of cancer Social History Smoking Status: Former smoker alcohol intake: never substance use type: denies use current occupational status: retired Travel in the last 8 weeks: None household members: spou
--- NOTE | 2022-11-03 19:39 | PC.NURSE ---
paged Dr. Nowak
--- NOTE | 2022-11-03 19:41 | PC.NURSE ---
[place] CARTER speaking with Dr. Nowak at this time
[2022-11-03 19:48] LABS: D-Dimer 0.71 ug/mL (0.0-0.5)
[2022-11-03 19:54] LABS: NT Pro Brain Natriuretic Pep. 1750 pg/mL (0-450)
--- NOTE | 2022-11-03 20:51 | PC.NURSE ---
Patient admitted to [facility] with dx of PNA to service of Dr. Nowak to Dr. Mcallister.
--- NOTE | 2022-11-03 21:33 | PC.NURSE ---
Pt arrived via wheelchair @ 2132
[2022-11-03 21:43] LABS: Troponin I 0.18 ng/ml (0.00-0.034)
[2022-11-03 23:49] LABS: Lactic Acid 1.5 mmol/L (0.7-2.1)
[2022-11-04] VITALS (17 sets, daily range): BP systolic 123–166; BP diastolic 47–80; PULSE 60–96; RESP 16–20; TEMP 36.4–36.9; O2SAT 93–98; BMI 29.0; BMI 28.9
[2022-11-04 01:11] LABS: Troponin I 0.22 ng/ml (0.00-0.034)
--- NOTE | 2022-11-04 01:12 | PC.NURSE ---
REPORT RECIEVED FROM Sandrine HANDY RN/ED AT 2100/ PATIENT ARRIVED TO THE FLOOR VIA W/C WITH 02 SUPPORT ACCOMPANIED BY DAUGHTER AND ADMITTED TO RM 212. DIAGNOSIS CAP.
--- NOTE | 2022-11-04 01:14 | PC.NURSE ---
AT 010 LAB CALLED WITH TROPONIN ..22
--- NOTE | 2022-11-04 01:25 | PC.NURSE ---
PATIENT WAS ADMITTED AT 2129.
--- NOTE | 2022-11-04 01:25 | PC.NURSE ---
DR LEMUS PAGED AT 0120 RE ELEVATED TROPONIN.
--- NOTE | 2022-11-04 01:42 | PC.NURSE ---
ORDER RECEIVED FROM DR LEMUS TO ADD TROPONIN TO AM LABS 0600.
[2022-11-04 06:30] LABS: Basophils # 0.1 K/mm3 (0-0.2); Basophils % 1.3 % (0.1-2.0); Eosinophils # 0.2 K/mm3 (0.0-0.4); Eosinophils % 3.1 % (0.1-12.0); Hematocrit 38.5 % (42.0-52.0); Lymphocytes # 1.6 K/mm3 (0.7-4.5); Lymphocytes % 21.8 % (10-50); Mean Corpuscular HGB Conc 31.6 g/dL (31.8-35.4); Mean Corpuscular Hemoglobin 28.5 pg (27.0-31.2); Mean Corpuscular Volume 90.1 fl (80-94); Mean Platelet Volume 7.5 fl (7.4-10.4); Monocytes # 0.9 K/mm3 (0.1-1.0); Monocytes % 11.9 % (1.7-9.3); Neutrophils # 4.6 K/mm3 (1.8-7.8); Neutrophils % 61.9 % (37.0-80.0); Platelet Count 254 K/mm3 (142-424); Red Blood Count 4.27 M/mm3 (4.60-6.20); Red Cell Distribution Width 13.6 % (11.5-17.5); White Blood Count 7.5 K/mm3 (4.8-10.8)
[2022-11-04 06:33] LABS: Chloride 112 mmol/L (98-107); Potassium 3.7 mmoL/L (3.5-5.1); Sodium 142 mmol/L (136-145)
[2022-11-04 06:36] LABS: Alanine Aminotransferase 18 U/L (12-78); Albumin/Globulin Ratio 1.2 (1.1-1.8); Alkaline Phosphatase 82 U/L (38-126); Anion Gap 6.7 mEq/L (5-15); Aspartate Amino Transferase 28 U/L (17-59); Bilirubin,Total 0.4 mg/dl (0.2-1.3); Blood Urea Nitrogen 17 mg/dl (9-20); Calcium 7.8 mg/dl (8.4-10.2); Carbon Dioxide 27 mmol/L (22.0-30.0); Creatinine Clearance Estimated 57 mL/min (50-200); Estimated Glomerular Filt Rate 52 ml/min (>60); GFR (African American) 63 ML/MIN (>60); Globulin 2.5 g/dL (1.3-3.2); Glucose 123 mg/dl (74-100); Total Protein,Serum 5.5 g/dl (6.3-8.2)
--- NOTE | 2022-11-04 06:42 | PC.NURSE ---
PATIENT HAS RESTED WELL THIS SHIFT. 02 AT 2LNC. VITAL SIGNS STABLE AND AFEBRILE. VOICES VO VOMPLAINS OF SOA/PAIN.
--- NOTE | 2022-11-04 06:50 | HMH.PHAINT1 ---
Pharmacy Intervention Comments: MEDICATION RECONCILIATION COMPLETED ON PATIENT USING EXTERNAL FILL HISTORY FROM PHARMACY. -VIVIANE ZAMORA, LUZD
[2022-11-04 07:04] LABS: Hemoglobin 12.2 g/dL (14.1-18.0)
--- NOTE | 2022-11-04 08:40 | CA_ITS ---
APPROVED REPORT EXAM: Comprehensive 2D, Doppler, and color-flow Echocardiogram Specification Consultant: Marilou Souza RVT Ht: 6 ft 0 in Wt: 219lbs BSA: 2.21 BP: 179/96 mmHg Indications: SOA,PNEUMONIA,ELEVATED TROP,PACER,CAD,A-FIB,BRADYCARDIA,EX SMOKER,HTN,HLD 2D Dimensions LVOT 2.21 cm (M/F) 1.5-2.5 LA Volume 143.00 mL LA Volume Index 64.71 mL/m2 (M/F) 16-34 M-Mode Dimensions RVDd 2.98 cm (0.9-2.6) LA Diam 5.28 cm (1.9-4.0) LVDd 5.65 cm (3.5-5.7) Ao Diam 3.61 cm (2.0-3.7) LVDs 4.25 cm (3.5-5.7) IVSd 1.28 cm (0.6-1.1) PWd 0.84 cm (0.6-1.1) EF (Teich) 48.50% FS 24.80% EDV (Teich) 156.80 mL TAPSE 2.50 (<1.7) ESV (Teich) 80.80 mL LV Diastology E Decel Time 190.00 (160-240 msec) E/A Ratio 1.4 MED E' 3.80 (< 7 cm/sec) E'/MED E' Ratio 24.97 (>14) LAT E' 7.80 (<10 cm/sec) E/LAT E' Ratio 12.17 (>14) Aortic Valve AI PHT 708.00 ms AO Peak GR. 4.70 mmHg Mitral Valve MV E Max Harley. 95.00 (40-130 cm/s) MV A Velocity 66.00 (40-130 cm/s) E/A Ratio 1.44 MV Decel. Time 190.00 (160-240 ms) MV PHT 56.00 ms Pulmonary Valve PV Peak Velocity 116.00 (50-150 cm/s) Tricuspid Valve TR P. Velocity 332.00 cm/s RAP Estimate 10.00 mmHg RVSP 54.00 mmHg Left Ventricle Technically difficult study because of the patient factors and poor acoustic windows. Left atrium is mildly enlarged left ventricle normal size mild concentric left ventricular hypertrophy, estimated ejection fraction 45%, there is moderate hypokinesis involving mid to distal septum, and apical wall. Diastolic parameters are inconclusive. Right Ventricle Right atrium and right ventricular normal size and contractility. Aortic Valve Aortic valve is minimally thickened and fibrosed there is no aortic stenosis, there is mild aortic insufficiency Mitral Valve Mitral valve is grossly normal, there is moderate mitral regurgitation. Tricuspid Valve Tricuspid grossly normal, there is mild tricuspid regurgitation, tricuspid regurgitation jet plus is inadequate for calculation of the right ventricular systolic pressure. Pulmonic Valve Pulmonic valve is poorly visualized. Great Vessels Aortic root is normal size. Inferior vena cava is normal size with normal inspiratory collapse. Pericardium No significant pericardial effusion noted. Conclusion 1. Enlarged left atrium, normal left ventricular size, mild concentric left ventricular hypertrophy, estimated ejection fraction 45% with segmental wall motion abnormality described above, diastolic parameters are inconclusive. 2. Mild aortic, moderate mitral and mild tricuspid regurgitation. 3. No significant pericardial effusion noted. 4. Inferior vena cava is normal size with normal inspiratory collapse. Electronically signed by : Manuel Fatima MD 11/04/2022 15:42:27
--- NOTE | 2022-11-04 08:41 | EXP.HP ---
History of Present Illness *Admission Date: 11/03/22 *Reason for visit:: Cough/shortness of air *History of present illness: 86-year-old male with history of tachybradycardia syndrome, recurrent pneumonia and history of increasing functional decline came to the emergency department with cough, congestion. Found to have right-sided infiltrate. Admitted with IV antibiotics and oxygen therapy. This morning says he feels better. [facility] Disclaimer: The information contained in this section may have been updated after the patient was seen, as this information can be updated by other users. Medical History (Updated 11/03/22 @ 22:22 by Natalie Mendoza RN) Atrial fibrillation CAD (coronary artery disease) Daytime somnolence Dyspnea Essential hypertension Hernia History of heart attack History of pacemaker Hyperlipidemia Hypertension Hyperthyroidism Symptomatic bradycardia Surgical History History of permanent cardiac pacemaker placement Hx of kidney removal Status post coronary artery stent placement Family History (Updated 11/03/22 @ 22:15 by Natalie Mendoza RN) Family history of cancer Father Son Social History (Updated 11/03/22 @ 22:22 by Natalie Mendoza RN) Smoking Status: Former smoker alcohol intake: never substance use type: denies use current occupational status: retired Travel in the last 8 weeks: None household members: spouse housing: house caffeine: Yes Review of Systems Review of Systems Review of systems:: pertinent systems reviewed and negative unless documented below Meds Home Medications and Allergies Home Medications Medication Instructions Recorded Confirmed Type levothyroxine 50 mcg tablet 50 mcg PO DAILY thyroid 10/14/20 11/03/22 History atorvastatin 40 mg tablet 40 mg PO HS cholesterol 11/24/20 11/03/22 History clopidogrel 75 mg tablet 75 mg PO DAILY antiplatelet 11/24/20 11/03/22 History escitalopram oxalate 10 mg tablet 10 mg PO DAILY Depression 04/26/21 11/03/22 History rivaroxaban 20 mg tablet 20 mg PO QPMWITHMEAL AFIB 06/25/21 11/04/22 History digoxin 125 mcg (0.125 mg) tablet 125 mcg PO DAILY heart rate #90 03/03/22 11/03/22 Rx tabs memantine 10 mg tablet 10 mg PO BID memory 07/29/22 11/04/22 History pantoprazole 40 mg tablet,delayed 40 mg PO DAILY GERD 08/16/22 11/03/22 History release (Protonix) losartan 50 mg tablet 50 mg PO DAILY Hypertension 11/04/22 11/04/22 History New Prescriptions to Start Prescriptions: Allergies Allergy/AdvReac Type Severity Reaction Status Date / Time No Known Allergies Allergy Verified 08/24/22 13:03 Exam Data for Last 24 hours Vital signs and Labs for Last 24 Hours: Temp Pulse Resp BP Pulse Ox 97.6 F 64 16 151/73 H 96 11/04/22 07:54 11/04/22 07:54 11/04/22 07:54 11/04/22 07:54 11/04/22 07:54 Laboratory Results - last 24 hr 11/03/22 18:24: WBC 8.5, RBC 5.06, Hgb 14.3, Hct 45.2, MCV 89.3, MCH 28.3, MCHC 31.7 L, RDW 13.8, Plt Count 290, MPV 7.5, Neut % (Auto) 65.3, Lymph % (Auto) 20.2, [place] % (Auto) 9.5 H, Eos % (Auto) 3.9, Baso % (Auto) 1.1, Neut # (Auto) 5.5, Lymph # (Auto) 1.7, [place] # (Auto) 0.8, Eos # (Auto) 0.3, Baso # (Auto) 0.1 11/03/22 18:24: Sodium 139, Potassium 3.7, Chloride 109 H, Carbon Dioxide 25, Anion Gap 8.7, BUN 15, Creatinine 1.30 H, Estimated Creat Clear 59, Estimated GFR 52 L, Est GFR ( Amer) 63, Glucose 99, Calcium 8.3 L, Troponin I 0.18 H 11/03/22 18:24: NT-Pro-B Natriuret Pep 1750 H 11/03/22 18:24: D-Dimer 0.71 H 11/03/22 18:35: SARS-CoV-2 (PCR) Not detected, Influenza A Untype (PCR) Not detected, Influenza Type B (PCR) Not detected 11/03/22 21:17: Troponin I 0.18 H 11/03/22 23:30: Lactate 1.5 11/04/22 00:40: Troponin I 0.22 H 11/04/22 05:10: WBC 7.5, RBC 4.27 L, Hgb 12.2 L D, Hct 38.5 L, MCV 90.1, MCH 28.5, MCHC 31.6 L, RDW 13.6, Plt Count 254, MPV 7.5, Neut % (Auto) 61.9, Lymph % (Auto) 21.8, R[place] % (Auto) 11.9
--- NOTE | 2022-11-04 10:01 | SW/DCPLANNER ---
Addendum entered by Ina Thibodeaux 11/04/22 15:24: Avis ramos/ [facility] stated that services will begin Monday11/06/22. Addendum entered by Ina Thibodeaux 11/04/22 13:52: *Patient was discharged from [facility] on 10/03/22. Patient information/order will be faxed to [facility] today to set up services for tomorrow. Patient will discharge home tomorrow pending no setbacks. Original Note: This patient is currently established with [facility]. I will fax patient information/order to resume services at time of discharge. PT has stated that patient is safe to return home with home health services.
--- NOTE | 2022-11-04 10:12 | HMH.OTEV ---
OT Inpatient Evaluation Rehab OT IP Evaluation Start: 11/04/22 08:40 Freq: ONCE Status: Active Protocol: Document 11/04/22 09:57 AZALEA (Rec: 11/04/22 10:12 AZALEA [id number]) Rehab OT IP Assessment Subjective History Upon arrivial, pt was seen resting in bed. Pt was oriented x3 person, place, and . Pt was agreeable to engage in therapy evaluation. Pt was admitted to [facility] on 11/03 due to Cough/shortness of air. Pt reports that he was independent in all ADLs and IADLs. Pt reports that he lives with his , and he currently cares for her. He reports that his is 3 months post leg surgery. Pt reports that there is 2 steps upon entering the house, and three steps in the garage. He reports that his daughter assist with all cooking and cleaning tasks. He reports that uses a rolling walker for functional mobility around the house. Pt reports that is does not wear oxygen at home. He reports that he is unable to drive, but his daughter and sister in law assist with grocery shopping. Pt has a past medical history of the following: Atrial fibrillation CAD (coronary artery disease) Daytime somnolence Dyspnea Essential hypertension Hernia History of heart attack History of pacemaker Hyperlipidemia Hypertension Hyperthyroidism Symptomatic bradycardia Pt was left resting in chair with call duron and all other needs within reach. Subjective I am ready to go home. Objective Patient Orientation Person,Place,Birthday Upper Extremity Gross ROM WFL
--- NOTE | 2022-11-04 10:16 | HMH.PTEV ---
Physical Therapy Evaluation Rehab PT IP Evaluation Start: 11/04/22 08:40 Freq: ONCE Status: Active Protocol: Document 11/04/22 10:12 PHORNE (Rec: 11/04/22 10:15 PHORNE [id number]) Subjective/History History History 86 yowm adm to [facility] with PNA. He reports he lives with , 2-3 steps to enter the home, and he uses a rolator walker for all mobility at baseline. He has family available to assist him if needed at home. Subjective Subjective Pt has no c/o this am. Oxygen saturation 96% with transfers with oxygen on via NC at all times during treatment. Rehab PT IP Eval Objective Appearance Patient Behavior Appropriate Patient Orientation Person,Place,Time Difficulty following instructions none Speech Pattern Clear Ambulation Patient Able to Ambulate Yes Ambulation Observation IP General Gait Pattern Observation Wide Based Gait Ambulation Distance (feet) 5 Ambulation Assistive Device Rolling Walker Ambulation Ability Contact Guard/Hand Hold Balance Ability to Arise Able, uses arms to help Sitting Balance Steady, safe Standing Balance Steady, wide stance Dynamic Sitting Balance Ability Good Dynamic Standing Balance Ability Fair Transfers Bed Transfer Ability Contact Guard/Hand Hold Chair Transfer Ability Contact Guard/Hand Hold Sit to Stand Bed Transfer Ability Contact Guard/Hand Hold Sit to Stand Chair Transfer Ability Contact Guard/Hand Hold ROM All Extremities PT ROM Status WFL MMT All Extremities PT MMT WFL Rehab PT IP prob,goals,plan Problems Date of Evaluation: 11/04/22 PT IP Problems Bed Mobility,Transfers,Gait Rehab Potential Rehab Potential Good Plan PT Intervention Plan Bed Mobility,Transfers,Gait, Therapeutic Exercise PT Plan Frequency Daily Duration LOS Discharge Goals Bed Transfer Ability Supervision/Stand by Sit to Stand Chair Transfer Ability Supervision/Stand by Ambulation Assistive Device Rolling Walker Ambulation Distance (feet) 20 Discharge Plan PT Discharge Plan Pt is currently appropriate to return home once medically stable for d/c. Recommend continued Home Health therapy after d/c. G -code Required
--- NOTE | 2022-11-04 10:20 | HMH.SLDYSPHA ---
Speech & Language Evaluation Speech/Language Dysphagia Evaluation Start: 11/04/22 10:01 Freq: ONCE Status: Active Protocol: Document 11/04/22 10:01 LYNN (Rec: 11/04/22 10:19 LYNN [id number]) Dysphagia Assess/Goals/Plan Assessment Date of Evaluation: 11/04/22 Evaluation Type Initial Certification Assessment/Problems Clinical Swallow Evaluation completed per MD order. Does Patient Qualify for Service No Qualify/Failure Comment Based on CSE results, skilled speech therapy services are not warranted at this time, swallowing and mastication appear to be WFL. Recommendations PHYSICIAN CERTIFICATION: The specified therapy services are required, authorized, and reviewed every 30 days. Diet Recommendations Normal Liquid Type Recommendations Normal/Thin SL Swallow Guidelines Standard Aspiration Prec. Dysphagia Swallow Precautions/Strategies Sitting Upright (90 deg),Small Bites and Sips,Alternate Liquids/Solids Plan Pt/Guardian verbally ack understanding Yes of dx/prognosis/goals G -code Required No Education Instructions provided Discussed CSE results, diet recommendations, aspiration risks/precautions with pt and family, nursing, and care management all of which expressed understanding. Pt/Caregiver able to recall information Able to recall/restate Reinforcement needed No Speech & Language HPI History Present Illness Description of Patient Problem 86-year-old male with history of tachybradycardia syndrome, recurrent pneumonia and history of increasing functional decline came to the emergency department via EMS presenting with cough, congestion, shortness of breath cough and wheezing over the last few days. Pt stated that he feels similar to how he had COVID in the past. Upon arrival to ER, room air oxygen saturations were in the low 80s and pt stated he does not take supplemental oxygen. He was placed on 2 L and oxygen saturations normalized into the low 90s.
[2022-11-04 11:10] LABS: Mycoplasma Pneumo IGM (Rapid) Non-Reactive (Non-Reactiv)
--- NOTE | 2022-11-04 14:03 | HMH.OTEV ---
b OT Inpatient Evaluation Rehab OT IP Evaluation Start: 11/04/22 08:40 Freq: ONCE Status: Active Protocol: Document 11/04/22 09:57 AZALEA (Rec: 11/04/22 10:12 AZALEA [id number]) Rehab OT IP Assessment Subjective History Upon arrivial, pt was seen resting in bed. Pt was oriented x3 person, place, and . Pt was agreeable to engage in therapy evaluation. Pt was admitted to [facility] on 11/03 due to Cough/shortness of air. Pt reports that he was independent in all ADLs and IADLs. Pt reports that he lives with his , and he currently cares for her. He reports that his is 3 months post leg surgery. Pt reports that there is 2 steps upon entering the house, and three steps in the garage. He reports that his daughter assist with all cooking and cleaning tasks. He reports that uses a rolling walker for functional mobility around the house. Pt reports that is does not wear oxygen at home. He reports that he is unable to drive, but his daughter and sister in law assist with grocery shopping. Pt has a past medical history of the following: Atrial fibrillation CAD (coronary artery disease) Daytime somnolence Dyspnea Essential hypertension Hernia History of heart attack History of pacemaker Hyperlipidemia Hypertension Hyperthyroidism Symptomatic bradycardia Pt was left resting in chair with call duron and all other needs within reach. Subjective I am ready to go home. Objective Patient Orientation Person,Place,Birthday Upper Extremity Gross ROM WFL
--- NOTE | 2022-11-04 19:55 | PC.NURSE ---
PATIENT REPORTS MOD LOOSE STOOL. DRANK PRUNE JUICE THIS EVENING. ALSO INSTRUCTED ON INCENTIVE SPIROMETER AND PERFORMED 2500ML.
[2022-11-05] VITALS: PULSE 67
[2022-11-05 04:00] VITALS: BP 138/66; PULSE 62; RESP 18; TEMP 36.7; O2SAT 96; BMI 29.2
--- NOTE | 2022-11-05 05:34 | PC.NURSE ---
PATIENT IS DOING WELL WITHOUT SUPPLEMENTAL 02. AMBULATES WELL WITH ROLLING WALKER AND SBA. DENIES PAIN OR DISCOMFORT. 2500 ON INCENTIVE SPIROMETER.
[2022-11-05 06:00] VITALS: PULSE 65
[2022-11-05 07:03] LABS: Basophils # 0.1 K/mm3 (0-0.2); Basophils % 1.1 % (0.1-2.0); Eosinophils # 0.3 K/mm3 (0.0-0.4); Eosinophils % 3.8 % (0.1-12.0); Hematocrit 37.3 % (42.0-52.0); Hemoglobin 12.5 g/dL (14.1-18.0); Lymphocytes % 22.4 % (10-50); Mean Corpuscular HGB Conc 33.6 g/dL (31.8-35.4); Mean Corpuscular Hemoglobin 28.7 pg (27.0-31.2); Mean Corpuscular Volume 85.6 fl (80-94); Mean Platelet Volume 7.5 fl (7.4-10.4); Monocytes # 0.9 K/mm3 (0.1-1.0); Monocytes % 9.8 % (1.7-9.3); Neutrophils # 5.7 K/mm3 (1.8-7.8); Neutrophils % 62.9 % (37.0-80.0); Platelet Count 254 K/mm3 (142-424); Red Blood Count 4.36 M/mm3 (4.60-6.20); Red Cell Distribution Width 13.5 % (11.5-17.5)
[2022-11-05 07:07] LABS: Chloride 110 mmol/L (98-107); Sodium 139 mmol/L (136-145)
[2022-11-05 07:08] LABS: Potassium 3.8 mmoL/L (3.5-5.1)
[2022-11-05 07:10] LABS: Blood Urea Nitrogen 15 mg/dl (9-20); Creatinine Clearance Estimated 68 mL/min (50-200); Estimated Glomerular Filt Rate 63 ml/min (>60); GFR (African American) 77 ML/MIN (>60)
[2022-11-05 07:11] LABS: Anion Gap 6.8 mEq/L (5-15); Calcium 7.8 mg/dl (8.4-10.2); Carbon Dioxide 26 mmol/L (22.0-30.0); Glucose 89 mg/dl (74-100)
[2022-11-05 08:00] VITALS: BP 144/84; PULSE 66; RESP 16; TEMP 36.9; O2SAT 98
[2022-11-05 08:10] VITALS: PULSE 84
--- NOTE | 2022-11-05 09:11 | EXP.DC.SUM ---
General Admission date:: 11/03/22 Discharge date: 11/05/22 HPI HPI HPI: 86-year-old male with history of tachybradycardia syndrome, recurrent pneumonia and history of increasing functional decline came to the emergency department with cough, congestion. Found to have right-sided infiltrate. Admitted with IV antibiotics and oxygen therapy. This morning says he feels better. Hospital Course Hospital Course Hospital Course: Patient was admitted, started on antibiotics for his right perihilar infiltrate and improved in regards to oxygenation status and functional status. Echocardiogram was done because of the questionable atypical CHF reading of the x-ray. His echocardiogram read has changed since 2 years ago, with an EF of 45% with some segmental wall abnormalities. Patient had no exertional dyspnea or chest pain when he walked with physical therapy and was able to walk 300 yards with no oxygen after antibiotic treatment As result, I think most of his symptoms were from pneumonia, but I do think his CHF needs addressed with different medications. As a result we will discontinue his angiotensin receptor asael and begin Entresto therapy. I provided him with samples and instructed he and his daughter to start this medication on Monday given the administration of his angiotensin receptor asael today. I will have pharmacy and nursing consult with them also with this change. We will discharge him on antibiotics as noted. I will see him on November 09 in my office for hospital follow-up visit. Exam Data for Last 24 hours Vital signs and Labs for Last 24 Hours: Temp Pulse Resp BP Pulse Ox 98.4 F 84 16 144/84 H 98 11/05/22 08:00 11/05/22 08:10 11/05/22 08:00 11/05/22 08:00 11/05/22 08:00 Laboratory Results - last 24 hr 11/04/22 05:10: Mycoplasma pneumon IgM Non-reactive 11/05/22 06:43: WBC 9.0, RBC 4.36 L, Hgb 12.5 L, Hct 37.3 L, MCV 85.6, MCH 28.7, MCHC 33.6, RDW 13.5, Plt Count 254, MPV 7.5, Neut % (Auto) 62.9, Lymph % (Auto) 22.4, [place] % (Auto) 9.8 H, Eos % (Auto) 3.8, Baso % (Auto) 1.1, Neut # (Auto) 5.7, Lymph # (Auto) 2.0, [place] # (Auto) 0.9, Eos # (Auto) 0.3, Baso # (Auto) 0.1 11/05/22 06:43: Sodium 139, Potassium 3.8, Chloride 110 H, Carbon Dioxide 26, Anion Gap 6.8, BUN 15, Creatinine 1.10, Estimated Creat Clear 68, Estimated GFR 63, Est GFR ( Amer) 77 D, Glucose 89, Calcium 7.8 L I & O for Last 24 hours: Intake & Output 11/02/22 11/03/22 11/04/22 11/05/22 11:59 11:59 11:59 11:59 Intake Total 441 / 441 2672 / 2672 Output Total 500 / 500 1326 / 1326 Balance -59 / -59 1346 / 1346 Weight 219 lb 1.985 oz 221 lb Microbiology Reports for the Last 24 Hours: Microbiology 11/04/22 10:00 Sputum - Expectorated Sputum Gram Stain - Final Constitutional Constitutional: no acute distress *Routine HEENT Exam Head: Present normocephalic Eye: Present EOMI and PERRL ENT: Present mucous membranes moist *Routine Neck Exam Neck: Present supple; Absent lymphadenopathy *Routine Respiratory Exam Respiratory: Present CTA bilaterally *Routine Cardiovascular Exam Cardiovascular: Present RRR and murmur *Routine Abdominal Exam Abdominal: Present soft and normoactive bowel sounds; Absent tenderness *Routine Extremities Exam Extremities: Absent cyanosis, clubbing or edema *Routine Skin Exam Skin: Present warm; Absent rash *Routine Neurological Exam Neurological: Present alert and oriented X3 Results Data Completed and Pending Labs on day of discharge: Labs from last 24 hours 11/05/22 11/05/22 11/04/22 06:43 06:43 05:10 WBC 9.0 RBC 4.36 L Hgb 12.5 L Hct 37.3 L MCV 85.6 MCH 28.7 MCHC 33.6 RDW 13.5 Plt Count 254 MPV 7.5 Neut % (Auto) 62.9 Lymph % (Auto) 22.4 Valencia % (Auto) 9.8 H Eos % (Auto) 3.8 Baso % (Auto) 1.1 Neut # (Auto) 5.7 Lymph # (Auto) 2.0 [place] # (Auto) 0.9 Eos # (Auto) 0.3 Baso # (Auto) 0.1 Sodium 139 Pot
--- NOTE | 2022-11-05 12:54 | HMH.PHAINT1 ---
Pharmacy Intervention Comments: DISCHARGE MEDICATION COUNSELING PROVIDED TO PATIENT'S SON. DISCUSSED STOPPING THE LOSARTAN AND STARTING ENTRESTO ON MONDAY. DISCUSSED THE FOLLOWING NEW MEDICATIONS: -ENTRESTO (FOR BP, TWICE DAILY, DIZZINESS, LIGHTHEADEDNESS, HIGH POTASSIUM, LOW BP, SWELLING, COUGH POSSIBLE) -AZITHROMYCIN (ANTIBIOTIC, DAILY, TAKE WITH FOOD, N/V/D POSSIBLE) -CEFDINIR (ANTIBIOTIC, TWICE DAILY, TAKE WITH FOOD, N/V/D POSSIBLE) PATIENT'S SON VERBALIZED NO QUESTIONS AT THIS TIME.
--- NOTE | 2022-11-05 12:55 | PC.NURSE ---
pt has been discharged from the unit. Took all belongings with him and voiced understanding of all dc education and follow up appts.
--- NOTE | 2022-11-07 13:06 | CARE MANAGER ---
Contacted patient's daughter, Galina. She states she has left a message for Dr. Mcallister as she is not sure how she will get him to his appointment Monday and he is having some of the same symptoms that she brought him to the ER for. We also discussed his medications at discharge. 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 Mcallister when she gets a return call. LILIYA Cruz
== END 2022-11-05 12:58 | disposition home health service (06) ==
LOC: ER 19:38 → 2ND 20:57
PROVIDERS: Admitting Provider Family Medicine; Emergency Provider Student in an Organized Health Care Education/Training Program; PCP Internal Medicine Adolescent Medicine; Visit Provider Internal Medicine Adolescent Medicine
DX: J18.9 Pneumonia, unspecified organism (principal); I49.5 Sick sinus syndrome; Z79.01 Long term (current) use of anticoagulants; I50.22 Chronic systolic (congestive) heart failure; Z95.0 Presence of cardiac pacemaker; Z79.899 Other long term (current) drug therapy; Z95.5 Presence of coronary angioplasty implant and graft; Z87.01 Personal history of pneumonia (recurrent); Z20.822 Contact with and (suspected) exposure to COVID-19
CPT/HCPCS: G0378; 36415; 71045; 80048; 80053; 83605; 83880; 84484; 85025; 85378; 86738; 87040; 87070; 87205; 92610; 93005; 93306; 97116; 97162; 97165; 99285; C9803; J0456; J0696; U0003; U0005

== ENCOUNTER → 2022-11-17 14:25 | Outpatient (CLI) | payer BC, MEDICARE, SELFPAY ==
[2022-11-17 16:01] LABS: Basophils # 0.1 K/mm3 (0-0.2); Basophils % 0.8 % (0.1-2.0); Eosinophils # 0.2 K/mm3 (0.0-0.4); Eosinophils % 3.5 % (0.1-12.0); Hematocrit 36.5 % (42.0-52.0); Hemoglobin 11.8 g/dL (14.1-18.0); Lymphocytes # 1.9 K/mm3 (0.7-4.5); Lymphocytes % 27.3 % (10-50); Mean Corpuscular HGB Conc 32.4 g/dL (31.8-35.4); Mean Corpuscular Hemoglobin 27.9 pg (27.0-31.2); Monocytes # 0.8 K/mm3 (0.1-1.0); Monocytes % 11.6 % (1.7-9.3); Neutrophils # 3.9 K/mm3 (1.8-7.8); Neutrophils % 56.7 % (37.0-80.0); Platelet Count 277 K/mm3 (142-424); Red Blood Count 4.24 M/mm3 (4.60-6.20); Red Cell Distribution Width 13.4 % (11.5-17.5); White Blood Count 6.9 K/mm3 (4.8-10.8)
[2022-11-17 16:12] LABS: Chloride 106 mmol/L (98-107); Potassium 4.3 mmoL/L (3.5-5.1); Sodium 138 mmol/L (136-145)
[2022-11-17 16:14] LABS: Alanine Aminotransferase 16 U/L (12-78); Aspartate Amino Transferase 27 U/L (17-59); Blood Urea Nitrogen 13 mg/dl (9-20); Estimated Glomerular Filt Rate 63 ml/min (>60); GFR (African American) 77 ML/MIN (>60)
[2022-11-17 16:15] LABS: Albumin Level 3.3 g/dl (3.5-5.0); Albumin/Globulin Ratio 1.3 (1.1-1.8); Alkaline Phosphatase 102 U/L (38-126); Anion Gap 8.3 mEq/L (5-15); Bilirubin,Total 0.6 mg/dl (0.2-1.3); Calcium 8.2 mg/dl (8.4-10.2); Carbon Dioxide 28 mmol/L (22.0-30.0); Chol/HDL Ratio 2.4 (1-3.5); Cholesterol 105 mg/dl (140-200); Globulin 2.5 g/dL (1.3-3.2); Glucose 64 mg/dl (74-100); HDL Cholesterol 44 mg/dl (40-60); Magnesium 2.1 mg/dl (1.6-2.3); Total Protein,Serum 5.8 g/dl (6.3-8.2); Triglycerides 66 mg/dl (30-150); VLDL Cholesterol 13 mg/dL (0-40)
[2022-11-17 16:33] LABS: Free Thyroxine Index 2.7 ug/dL (5.93-13.13); T4 (Thyroxine) 7.8 ug/dl (5.53-11.0); Triiodothryronine (T3) Uptake 35 % (23.5-40.5)
[2022-11-17 16:46] LABS: Thyroid Stimulating Hormone 2.18 uIU/mL (0.465-4.68)
== END ==
PROVIDERS: PCP Internal Medicine Adolescent Medicine; Visit Provider Internal Medicine Adolescent Medicine
DX: I48.91 Unspecified atrial fibrillation (principal); I11.0 Hypertensive heart disease with heart failure; I50.22 Chronic systolic (congestive) heart failure; G60.9 Hereditary and idiopathic neuropathy, unspecified
CPT/HCPCS: 80053; 80061; 83735; 84436; 84443; 84479; 85025

== ENCOUNTER 2023-02-28 20:32 | Inpatient (IN) | payer MEDICARE, BC, SELFPAY ==
[2023-02-28] VITALS (11 sets, daily range): BP systolic 128–187; BP diastolic 70–91; PULSE 63–92; RESP 18–32; TEMP 36.6–36.8; O2SAT 90–99; BMI 26.9
--- NOTE | 2023-02-28 20:38 | PC.NURSE ---
Dr. Layton speaking with Dr. Joe
--- NOTE | 2023-02-28 20:40 | XR_ITS ---
PROCEDURE INFORMATION: Exam: XR Chest Exam date and time: 02/28/2023 8:41 PM Age: 87 years old Clinical indication: Shortness of breath; Additional info: SOA TECHNIQUE: Imaging protocol: Radiologic exam of the chest. Views: 1 view. COMPARISON: CR XR CHEST PORTABLE 11/03/2022 6:56 PM FINDINGS: Tubes, catheters and devices: A 2 lead internal cardiac device implanted at the left chest with leads extending to the right heart. Lungs: Bibasilar opacities right greater than left partially silhouette the diaphragm are favored to represent combination of atelectasis/pleural effusion/consolidation. Pleural spaces: See Lungs finding. Heart/Mediastinum: Unremarkable. No cardiomegaly. Bones/joints: Unremarkable. IMPRESSION: Bibasilar opacities right greater than left partially silhouette the diaphragm are favored to represent combination of atelectasis/pleural effusion/consolidation.
--- NOTE | 2023-02-28 20:45 | ECG_ITS ---
APPROVED REPORT Exam: Resting ECG HR:76 bpm ECG Measurements Heart Rate 76 AXES DE 314 P 94 QRSd 188 QRS 66 QT 429 T 139 QTc 460 Conclusion SINUS RHYTHM WITH FIRST DEGREE AV BLOCK LEFT BUNDLE BRANCH BLOCK [120+ ms QRS DURATION, 80+ ms Q/S IN V1/V2, 85+ ms R IN I/aVL/V5/V6] ABNORMAL ECG UNCONFIRMED REPORT Electronically signed by : Kelvin Mcallister MD 03/01/2023 21:48:39
--- NOTE | 2023-02-28 20:49 | PC.NURSE ---
RAD at for CXR
--- NOTE | 2023-02-28 20:49 | PC.NURSE ---
RT at to obtain ABG
--- NOTE | 2023-02-28 20:50 | PC.NURSE ---
DR. BURT SPEAKING WITH DR LEVINE AT THIS TIME
[2023-02-28 20:57] LABS: ABG Base Excess -0.6 mmol/L (-2.4-2.3); ABG HCO3 24.7 mmhg (22.0-26.0); ABG Oxygen Saturation 99 % (90-100); ABG PCO2 44.3 mmhg (35.0-45.0); ABG PH 7.37 mmol/L (7.35-7.45); ABG PO2 166.1 mmhg (80-100); ABG TCO2 26.1 mmhg (23-27)
[2023-02-28 20:58] LABS: Allen's Test Y; Oxygen 100 %; Source Left Radial
--- NOTE | 2023-02-28 20:58 | PC.NURSE ---
Pt daughter at BS
--- NOTE | 2023-02-28 20:58 | PC.NURSE ---
Dr. Layton at to speak with pt/daughter
--- NOTE | 2023-02-28 20:59 | PC.NURSE ---
COVID SWAB SENT TO LAB
[2023-02-28 21:00] LABS: Coronavirus 19, PCR Not Detected (NotDetected); Influenza A, PCR Not Detected (NotDetected); Influenza B, PCR Not Detected (NotDetected)
[2023-02-28 21:03] LABS: Basophils % 0.2 % (0.1-2.0); Eosinophils # 0.2 K/mm3 (0.0-0.4); Eosinophils % 1.6 % (0.1-12.0); Hemoglobin 10.1 g/dL (14.1-18.0); Lymphocytes # 1.4 K/mm3 (0.7-4.5); Lymphocytes % 15.3 % (10-50); Mean Corpuscular HGB Conc 30.7 g/dL (31.8-35.4); Mean Corpuscular Hemoglobin 23.6 pg (27.0-31.2); Mean Platelet Volume 7.2 fl (7.4-10.4); Monocytes # 0.7 K/mm3 (0.1-1.0); Monocytes % 7.7 % (1.7-9.3); Neutrophils % 75.1 % (37.0-80.0); Platelet Count 482 K/mm3 (142-424); Red Blood Count 4.29 M/mm3 (4.60-6.20); Red Cell Distribution Width 15.7 % (11.5-17.5); White Blood Count 9.3 K/mm3 (4.8-10.8)
--- NOTE | 2023-02-28 21:04 | PC.NURSE ---
Registration notifed of admission. Pt assigned to room 217 SD acute for Chest Pain, Andres Mcallister.
[2023-02-28 21:08] LABS: Alanine Aminotransferase 35 U/L (12-78); Albumin Level 3.4 g/dl (3.5-5.0); Albumin/Globulin Ratio 1.2 (1.1-1.8); Alkaline Phosphatase 124 U/L (38-126); Aspartate Amino Transferase 47 U/L (17-59); Bilirubin,Total 0.6 mg/dl (0.2-1.3); Blood Urea Nitrogen 19 mg/dl (9-20); Calcium 8.3 mg/dl (8.4-10.2); Carbon Dioxide 25 mmol/L (22.0-30.0); Chloride 102 mmol/L (98-107); Creatinine Clearance Estimated 70 mL/min (50-200); Estimated Glomerular Filt Rate 71 ml/min (>60); GFR (African American) 86 ML/MIN (>60); Globulin 2.9 g/dL (1.3-3.2); Glucose 153 mg/dl (74-100); Sodium 138 mmol/L (136-145); Total Protein,Serum 6.3 g/dl (6.3-8.2)
--- NOTE | 2023-02-28 21:08 | HMH.EDCP ---
Discharge Plan Disposition Patient Disposition: Admitted Chief Complaint: Chest Pain Clinical Impressions Clinical Impression: CAD (coronary artery disease), CAP (community acquired pneumonia), Unstable angina pectoris, CHF (congestive heart failure), Respiratory failure with hypoxia, Severe sepsis with acute organ dysfunction Discharge ED Provider: Calin (ED)Seb Chest Pain HPI General Chief Complaint: Chest Pain Stated Complaint: SOA Time Seen by Provider: 02/28/23 20:35 Mode of Arrival: EMS Source of Information: Patient, Relative, EMS and Medical Record Limitations: No Limitations Description of Symptoms (Recalled from ER Triage Doc. by RN): the pt presents with c/o shortness of air weakness sweaty and chest pain the pt states that the event started yesterday. the pt does have a hx of chf and states that he hasnt taken his medication in a few days. History of Present Illness HPI narrative: pt with sob and chest pain today with hx of cad and chf and pacemaker - MD complaint: chest pain indicative of cardiac Onset (ago): hour(s) Duration: intermittent Activity at onset: during rest Pain location: substernal Severity: moderate Quality: aching Risk Factors for CAD: Hypertension and Family Hx of CAD Treatments prior to or on arrival for Cardiac Chest Pain: none SIMRAN Score for Non-Stemi Age of Patient: 80-89 years old Heart Rate: 90-109 bpm Systolic Blood Pressure: 140-159 mmHg Serum Creatinine: 1.20-1.59 mg/dl CHF Killip Class: II-Pulmonary Rales or Jug Other Risk Factors: Elevated Cardiac Enzymes or Biomarkers Non-Stemi Risk Score: 174 Risk Stratification: [id number] = High Risk Related Data Home Medications Medication Instructions Recorded Confirmed levothyroxine 50 mcg tablet 50 mcg PO DAILY thyroid 10/14/20 11/03/22 atorvastatin 40 mg tablet 40 mg PO HS cholesterol 11/24/20 11/03/22 clopidogrel 75 mg tablet 75 mg PO DAILY antiplatelet 11/24/20 11/03/22 escitalopram oxalate 10 mg tablet 10 mg PO DAILY Depression 04/26/21 11/03/22 rivaroxaban 20 mg tablet 20 mg PO QPMWITHMEAL AFIB 06/25/21 11/04/22 memantine 10 mg tablet 10 mg PO BID memory 07/29/22 11/04/22 pantoprazole 40 mg tablet,delayed 40 mg PO DAILY GERD 08/16/22 11/03/22 release (Protonix) Previous Rx's Medication Instructions Recorded digoxin 125 mcg (0.125 mg) tablet 125 mcg PO DAILY heart rate #90 03/03/22 tabs azithromycin 250 mg tablet 250 mg PO DIRECTED #6 tabs 11/05/22 cefdinir 300 mg capsule 300 mg PO BID #14 caps 11/05/22 sacubitril 24 mg-valsartan 26 mg 1 tab PO BID #60 tabs 11/05/22 tablet (Entresto) Allergies Allergy/AdvReac Type Severity Reaction Status Date / Time No Known Allergies Allergy Verified 08/24/22 13:03 [facility] Disclaimer: The information contained in this section may have been updated after the patient was seen, as this information can be updated by other users. Medical History (Updated 02/28/23 @ 22:10 by Seb Layton (ED)MD) Atrial fibrillation CAD (coronary artery disease) Daytime somnolence Dyspnea Essential hypertension Hernia History of heart attack History of pacemaker Hyperlipidemia Hypertension Hyperthyroidism Symptomatic bradycardia Surgical History History of permanent cardiac pacemaker placement Hx of kidney removal Status post coronary artery stent placement Family History (Updated 11/03/22 @ 22:15 by Natalie Mendoza RN) Father Family history of cancer Son Family history of cancer Social History (Updated 11/03/22 @ 22:22 by Natalie Mendoza RN) Smoking Status: Unknown if ever smoked alcohol intake: never substance use type: denies use current occupational status: retired Travel in the last 8 weeks: None household members: spouse housing: house caffeine: Yes ROS Obtained: Yes All systems reviewed & no additional complaints except as documented Physical Exam General General appea
[2023-02-28 21:14] LABS: C-Reactive Protein 3.1 mg/L (0-4)
[2023-02-28 21:23] LABS: NT Pro Brain Natriuretic Pep. 4690 pg/mL (0-450)
[2023-02-28 21:27] LABS: Procalcitonin 0.049 ng/mL (0.0-2.0)
[2023-02-28 21:29] LABS: Erythrocyte Sedimentation Rate 21 mm/hr (0-20)
--- NOTE | 2023-02-28 22:01 | PC.NURSE ---
Dr. Andres mora
--- NOTE | 2023-02-28 22:02 | PC.NURSE ---
Dr. Layton speaking with Dr. Campos
[2023-02-28 22:09] LABS: Lactic Acid 1.4 mmol/L (0.7-2.1)
--- NOTE | 2023-02-28 22:29 | PC.NURSE ---
pt arrived to floor at this time
[2023-03-01] VITALS (34 sets, daily range): BP systolic 94–155; BP diastolic 36–89; PULSE 60–83; RESP 12–22; TEMP 36.4–37.2; O2SAT 90–98; BMI 28.5
[2023-03-01 03:26] LABS: Troponin I 0.32 ng/ml (0.00-0.034)
[2023-03-01 06:07] LABS: Basophils % 0.2 % (0.1-2.0); Chloride 100 mmol/L (98-107); Eosinophils % 0.2 % (0.1-12.0); Hematocrit 33.1 % (42.0-52.0); Hemoglobin 10.3 g/dL (14.1-18.0); Lymphocytes # 1.5 K/mm3 (0.7-4.5); Mean Corpuscular HGB Conc 31.1 g/dL (31.8-35.4); Mean Corpuscular Hemoglobin 23.9 pg (27.0-31.2); Mean Corpuscular Volume 76.9 fl (80-94); Mean Platelet Volume 7.4 fl (7.4-10.4); Monocytes # 1.2 K/mm3 (0.1-1.0); Monocytes % 8.5 % (1.7-9.3); Neutrophils # 10.7 K/mm3 (1.8-7.8); Neutrophils % 80.1 % (37.0-80.0); Platelet Count 467 K/mm3 (142-424); Potassium 3.6 mmoL/L (3.5-5.1); Red Blood Count 4.31 M/mm3 (4.60-6.20); Red Cell Distribution Width 15.7 % (11.5-17.5); Sodium 139 mmol/L (136-145); White Blood Count 13.4 K/mm3 (4.8-10.8)
[2023-03-01 06:10] LABS: Anion Gap 10.6 mEq/L (5-15); Blood Urea Nitrogen 17 mg/dl (9-20); Calcium 8.3 mg/dl (8.4-10.2); Carbon Dioxide 32 mmol/L (22.0-30.0); Creatinine Clearance Estimated 67 mL/min (50-200); Estimated Glomerular Filt Rate 63 ml/min (>60); GFR (African American) 77 ML/MIN (>60); Glucose 94 mg/dl (74-100); Magnesium 1.9 mg/dl (1.6-2.3)
--- NOTE | 2023-03-01 08:15 | EXP.CARD.CON ---
History of Present Illness History of Present Illness Consult date: 03/01/23 Requesting physician: Kelvin Mcallister Consult reason: chest pain Chief complaint: NSTEMI Additional Medical History:: 1. CAD A. ?STEMI, 10/2020, [place] to prox/mid LAD and to jailed diagonal. EF 65%, LVEDP 15 mm Hg. Mild pulmonary HTN. Chronically occluded RCA with R-R and L-R collaterals. B. IN, 02/2023, with chronic abnormal EKG showing left bundle branch block 2. Hypertension 3. Memory issues A. On Memantine 4. Hyperlipidemia A. On statin therapy 5. Pacemaker insertion Secondary to CODE BLUE with tachy-bradycardia syndrome, 11/2020 A. EKG shows left bundle branch block 6. Chronic atrial fibrillation A. Anticoagulation therapy with Xarelto 7. 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 HFrEF A. CHF Admission 10/2022 B. Echo, 10/2022, LAE at 5.28 cm, EF 45% with moderate hypokinesis of the distal septum and apical bray, mild concentric LVH. Mild AI, moderate MR and mild TR. History of present illness: 87-year-old white male with known coronary disease and recent admission for congestive heart failure presented to the emergency department for several days history of shortness of breath, weakness intermittent sweating and with the sensation that he was going to . Patient's is in the room with him and states he does have some memory issues. His daughter Galina is the power of environmental attorney. Patient was started on nitroglycerin drip in the ER and states his symptoms have improved and he feels much better today. Troponins have returned positive overnight with current max of 0.32 Preliminary echocardiogram today shows ejection fraction in the 40-45% range with global hypokinesis. Valve status (mild AI and moderate MR noted on echo earlier this year) appears to be stable. Plan will be to proceed with cardiac catheterization today. Risk, benefits and procedure explained to the patient he agrees to proceed. [facility] Disclaimer: The information contained in this section may have been updated after the patient was seen, as this information can be updated by other users. Medical History (Updated 03/01/23 @ 08:36 by TAHIR Hudson) Atrial fibrillation CAD (coronary artery disease) Daytime somnolence Dyspnea Essential hypertension Hernia History of heart attack History of pacemaker Hyperlipidemia Hypertension Hyperthyroidism Symptomatic bradycardia Surgical History History of permanent cardiac pacemaker placement Hx of kidney removal Status post coronary artery stent placement Family History (Updated 11/03/22 @ 22:15 by Natalie Mendoza RN) Family history of cancer Father Son Social History (Updated 11/03/22 @ 22:22 by Natalie Mendoza RN) Smoking Status: Unknown if ever smoked alcohol intake: never substance use type: denies use current occupational status: retired Travel in the last 8 weeks: None household members: spouse housing: house caffeine: Yes Review of Systems Review of Systems Review of systems:: pertinent systems reviewed and negative unless documented below *Cardiovascular Cardiovascular: Reports chest pain *Respiratory Respiratory: Reports chest congestion and Reports cough Exam Data for Last 24 hours Vital signs and Labs for Last 24 Hours: Temp Pulse Resp BP Pulse Ox 98.1 F 70 21 139/89 96 03/01/23 07:40 03/01/23 07:28 03/01/23 07:28 03/01/23 07:28 03/01/23 07:56 Laboratory Results - last 24 hr 02/28/23 20:42: Specimen Source Left radial, O2 % 100, ABG pH 7.37, ABG pCO2 44.3, ABG pO2 166.1 H, ABG HCO3 24.7, ABG Total CO2 26.1, ABG O2 Saturation 99, ABG Base Excess -0.6, Gil Test Y 02/28/23 20:51: WBC 9.3, RBC 4.29 L, Hgb 10.1 L, Hct 33.0 L, MCV 77.0 L, MCH 23.6 L, MCHC 30.7 L, RDW 15.7, Plt Count 482 H, MPV 7.2 L, Neut % (Auto) 75.1, Lymph % (Auto) 15.3, [place] % (Auto) 7.7, Eos % (Auto) 1.6, Baso % (Auto) 0.2,
--- NOTE | 2023-03-01 08:28 | HMH.PHAINT1 ---
Pharmacy Intervention Comments: home medication reviewed with patient and patient's daughter
--- NOTE | 2023-03-01 08:33 | EXP.HP ---
History of Present Illness *Admission Date: 03/01/23 *Reason for visit:: Shortness of air and chest pain *History of present illness: 87-year-old male with history of coronary disease who has been feeling badly for a couple of weeks. He is also had low-grade temperatures. His daughter has told me that he had a couple episodes of hallucinatory activity where he feels like he has been pulling bloody worms out of his scalp and also told his family that he fell and fractured his eye socket even though they had no evidence of this and he had no bleeding around his eye. They brought him to the emergency department late last night because of dyspnea and chest pain In the ER found to have CHF exacerbation, met sepsis criteria, probably from a UTI and had elevated troponins. Admitted to hospital for antibiotic treatment, diuresis and cardiology evaluation [facility] Disclaimer: The information contained in this section may have been updated after the patient was seen, as this information can be updated by other users. Medical History (Updated 03/01/23 @ 08:36 by TAHIR Hudson) Atrial fibrillation CAD (coronary artery disease) Daytime somnolence Dyspnea Essential hypertension Hernia History of heart attack History of pacemaker Hyperlipidemia Hypertension Hyperthyroidism Symptomatic bradycardia Surgical History History of permanent cardiac pacemaker placement Hx of kidney removal Status post coronary artery stent placement Family History (Updated 11/03/22 @ 22:15 by Natalie Mendoza RN) Family history of cancer Father Son Social History (Updated 11/03/22 @ 22:22 by Natalie Mendoza RN) Smoking Status: Unknown if ever smoked alcohol intake: never substance use type: denies use current occupational status: retired Travel in the last 8 weeks: None household members: spouse housing: house caffeine: Yes Review of Systems Review of Systems Review of systems:: pertinent systems reviewed and negative unless documented below Meds Home Medications and Allergies Home Medications Medication Instructions Recorded Confirmed Type levothyroxine 50 mcg tablet 50 mcg PO DAILY thyroid 10/14/20 02/28/23 History atorvastatin 40 mg tablet 40 mg PO DAILY cholesterol 11/24/20 03/01/23 History clopidogrel 75 mg tablet 75 mg PO DAILY antiplatelet 11/24/20 02/28/23 History escitalopram oxalate 10 mg tablet 10 mg PO DAILY Mood 04/26/21 02/28/23 History rivaroxaban 20 mg tablet 20 mg PO QPMWITHMEAL ANTI PLATELET 06/25/21 02/28/23 History digoxin 125 mcg (0.125 mg) tablet 125 mcg PO DAILY heart rate #90 03/03/22 02/28/23 Rx tabs memantine 10 mg tablet 10 mg PO BID memory 07/29/22 02/28/23 History pantoprazole 40 mg tablet,delayed 40 mg PO DAILY GERD 08/16/22 02/28/23 History release (Protonix) calcium phosphate,dibasic 77 1 tab PO DAILY Supplement 02/28/23 02/28/23 History mg-vitamin D3 400 unit tablet sacubitril 24 mg-valsartan 26 mg 1 tab PO BID htn 02/28/23 03/01/23 History tablet (Entresto) vitamin B complex 1 cap PO DAILY Supplement 02/28/23 03/01/23 History donepezil 5 mg tablet 5 mg PO DAILY Memory 03/01/23 03/01/23 History New Prescriptions to Start Prescriptions: Allergies Allergy/AdvReac Type Severity Reaction Status Date / Time No Known Allergies Allergy Verified 08/24/22 13:03 Exam Data for Last 24 hours Vital signs and Labs for Last 24 Hours: Temp Pulse Resp BP Pulse Ox 98.1 F 70 21 139/89 96 03/01/23 07:40 03/01/23 07:28 03/01/23 07:28 03/01/23 07:28 03/01/23 07:56 Laboratory Results - last 24 hr 02/28/23 20:42: Specimen Source Left radial, O2 % 100, ABG pH 7.37, ABG pCO2 44.3, ABG pO2 166.1 H, ABG HCO3 24.7, ABG Total CO2 26.1, ABG O2 Saturation 99, ABG Base Excess -0.6, Igl Test Y 02/28/23 20:51: WBC 9.3, RBC 4.29 L, Hgb 10.1 L, Hct 33.0 L, MCV 77.0 L, MCH 23.6 L, MCHC 30.7 L, RDW 15.7, Plt Count 482 H,
[2023-03-01 08:36] LABS: NT Pro Brain Natriuretic Pep. 6550 pg/mL (0-450)
--- NOTE | 2023-03-01 09:32 | IR_ITS ---
APPROVED REPORT Patient Location: Inpatient PROCEDURES Selective coronary angiogram Intravascular ultrasound of the ostial proximal LAD Drug-eluting stent deployment to the proximal LAD INDICATION Acute non-ST elevation myocardial infarction, Coronary artery disease, Ostial proximal LAD stenosis of 3.4 mm??? by IVUS criteria Informed consent was obtained prior to the procedure. COMPLICATIONS None Estimated Blood Loss: Less than 10 mls TECHNIQUE One percent lidocaine used to anesthetize the right anterior aspect of the wrist. The right radial artery was accessed via the Seldinger technique. A 6 Romanian sheath was placed in the right radial artery. 150 mg magnesium sulfate, 800 mcg of nitroglycerin, 1mg Lidocaine and 5000 U Heparin were given through the arterial sheath. The papa catheter was also used to perform selective coronary angiography. At the end the diagnostic angiogram therapeutic heparin was administered giving a therapeutic ACT and the guide catheter was placed in left main artery followed by Choice PT support wire being placed down the LAD. Intravascular ultrasound probe was advanced which demonstrated a severe to critical 3.4 mm??? stenosis proximal to the widely patent proximal and mid LAD stent. Because of this a 3.5 x 12 mm [place] frontier stent was deployed at 20 scotty reducing the severe stenosis to 0%. FRANDY-3 flow was present before and after the procedure. Within the procedure the apparatus was removed the sheath was removed and hemostasis was achieved and TR banding patient was transferred to the postop putting in stable condition ANGIOGRAPHIC RESULTS The left main artery Normal The left anterior descending artery Has a proximal hazy angiographically indeterminate stenosis followed by a widely patent stent in the proximal and mid LAD segment. Distal to the mid LAD stent there are diffuse 30 and 40% mid vessel distal stenosis. The first diagonal artery has a stent which is patent however there appears to be an ostial 70% stenosis. The circumflex artery Is a dominant vessel with proximal and mid vessel diffuse 30% stenoses. The right coronary artery There is nondominant has a proximal 90% stenosis and subtotally occluded at mid segment. Right to right and [id number] collaterals fill the distal vessel The [place] ventriculogram reveals Not performed The left ventricular end-diastolic pressure Not measured IMPRESSION Severe proximal LAD disease as described above with successful stenting reducing the stenosis to 0% with 1 drug-eluting stent Chronically occluded right coronary artery which is is partially collateralized and best treated medically PLAN 1. Dual antiplatelet therapy combined with Xarelto for the next 30 days. After 30 days drop aspirin and continue Plavix and Xarelto 2. Continue standard medical therapy for ischemic heart disease 3. Cardiac rehabilitation 4. Avoidance of tobacco products 5. Check echocardiogram and base medical regimen on ejection fraction 6. LDL less than 55 to be achieved with high intensity statin Electronically signed by : Len Joe MD 03/01/2023 12:10:44
--- NOTE | 2023-03-01 10:28 | HMH.PTEV ---
Physical Therapy Evaluation Rehab PT IP Evaluation Start: 03/01/23 08:39 Freq: ONCE Status: Active Protocol: Document 03/01/23 10:24 PHORNE (Rec: 03/01/23 10:28 PHORNE [id number]) Subjective/History History History 87 yowm adm to [facility] with chest pain and CHF exac. He has hx of CAD, HTN, pacemaker. He reports he lives with his spouse, neither of them drive, ramp to enter the home, and he generally uses a walker for all mobility at baseline. He reports he uses 2L/mn O2 viaNC at all times at home. Subjective Subjective He reports feeling much better this am, agrees to mobility assessment. Rehab PT IP Eval Objective Appearance Patient Behavior Appropriate Patient Orientation Person,Place,Time Difficulty following instructions none Speech Pattern Clear Ambulation Patient Able to Ambulate Yes Ambulation Observation IP General Gait Pattern Observation No Deviations/Normal Ambulation Distance (feet) 20 Ambulation Assistive Device Rolling Walker Ambulation Ability Supervision/Stand by Balance Ability to Arise Able, uses arms to help Sitting Balance Steady, safe Standing Balance Steady, wide stance Dynamic Sitting Balance Ability Good Dynamic Standing Balance Ability Fair Transfers Bed Transfer Ability Supervision/Stand by Chair Transfer Ability Supervision/Stand by Sit to Stand Bed Transfer Ability Supervision/Stand by Sit to Stand Chair Transfer Ability Supervision/Stand by ROM All Extremities PT ROM Status WFL MMT All Extremities PT MMT WFL Rehab PT IP prob,goals,plan Problems Date of Evaluation: 03/01/23 PT IP Problems Bed Mobility,Transfers,Gait Rehab Potential Rehab Potential Good Plan PT Intervention Plan Bed Mobility,Transfers,Gait, Therapeutic Exercise PT Plan Frequency Daily Duration LOS Discharge Goals Bed Transfer Ability Independent Sit to Stand Chair Transfer Ability Independent Ambulation Assistive Device Rolling Walker Ambulation Distance (feet) 30 Discharge Plan PT Discharge Plan Pt is currently appropriate to return home once medically stable for d/c. Poss heart cath planned for today.
--- NOTE | 2023-03-01 10:33 | HMH.OTEV ---
OT Inpatient Evaluation Rehab OT IP Evaluation Start: 03/01/23 08:39 Freq: ONCE Status: Active Protocol: Document 03/01/23 10:18 AZALEA (Rec: 03/01/23 10:33 AZALEA [id number]) Rehab OT IP Assessment Subjective History 87-year-old male with history of coronary disease who has been feeling badly for a couple of weeks. He is also had low-grade temperatures. His daughter has told me that he had a couple episodes of hallucinatory activity where he feels like he has been pulling bloody worms out of his scalp and also told his family that he fell and fractured his eye socket even though they had no evidence of this and he had no bleeding around his eye. They brought him to the emergency department late last night because of dyspnea and chest pain In the ER found to have CHF exacerbation, met sepsis criteria, probably from a UTI and had elevated troponins. Admitted to hospital for antibiotic treatment, diuresis and cardiology evaluation. Patient lives in 1 story home with ramp to enter. Lives with . Independent with ADLs and fx'l mobility. Patient uses a RW to ambulate. Subjective I can get up. Instructed Patient on proper hand and foot placement to complete supine->sit @ EOB requiring Min A. Patient demonstrated good dynamic sitting balance. Instructed Patient on proper hand and foot placement to complete bed mobility from supine->sit @ EOB->stand with RW ~20ft with CGA. Assisted Patient back to bed with needs met. Objective Patient Orientation Person,Place,Name,Year Upper Extremity Gross ROM
--- NOTE | 2023-03-01 10:54 | SW/DCPLANNER ---
Addendum entered by Ina Thibodeaux 03/03/23 09:22: The plan for this patient is to discharge to [facility] level of care today. Addendum entered by Ina Thibodeaux 03/02/23 07:32: Patient/daughter expressed an interest in SNF level of care at [facility] at time of discharge. Patient information will be faxed to Arminda ramos/ [facility] this AM: I will follow up once patient information is reviewed. Original Note: I spoke with this patient and his regarding plans once medically stable for discharge. PT/OT evaluated patient and recommended home with home health services. is currently established with [facility] and would prefer to use the same agency for patient. Patient is agreeable with this plan. has also expressed an interest in information on [employer], [facility] and Private Sitters list: I will provide all these resources to patient/family. Discharge date is unknown at this time.
--- NOTE | 2023-03-01 12:19 | PC.NURSE ---
blood tinged urine, prior to the case.
[2023-03-01 12:34] LABS: CATHL Activated Clotting Time 250 SEC (74-125)
--- NOTE | 2023-03-01 13:18 | SUR.PHASEII ---
Pt noted to have blood tinge urine per arrival to cathlab upon transport to cathlab urine noted to become even more blood tinge, dr jha notified, no new orders received.
--- NOTE | 2023-03-01 13:30 | PC.NURSE ---
Notified Dr. Mcallister of bloody, dark red color urine in drain line and collection bag. New orders given for CBI.
--- NOTE | 2023-03-01 14:00 | PC.NURSE ---
Dr. Mcallister notified. To begin CBI the patients catheter needs changed to a 3-way morel and this may introduce more trauma. The urine in the collection bag is more transparent now and pink tined in color. Per Dr. Mcallister, new orders given to flush morel cath PRN.
--- NOTE | 2023-03-01 15:30 | PC.NURSE ---
Charles Catheter fulshed with 20 ml NS. Urine in drainge tube is pink tined in color.
[2023-03-01 17:13] LABS: Chloride 98 mmol/L (98-107); Sodium 140 mmol/L (136-145)
[2023-03-01 17:14] LABS: Basophils % 0.2 % (0.1-2.0); Eosinophils # 0.1 K/mm3 (0.0-0.4); Eosinophils % 0.9 % (0.1-12.0); Hematocrit 32.5 % (42.0-52.0); Hemoglobin 10.1 g/dL (14.1-18.0); Lymphocytes # 1.3 K/mm3 (0.7-4.5); Lymphocytes % 12.4 % (10-50); Mean Corpuscular HGB Conc 31.2 g/dL (31.8-35.4); Mean Corpuscular Hemoglobin 23.7 pg (27.0-31.2); Mean Platelet Volume 7.5 fl (7.4-10.4); Monocytes % 9.6 % (1.7-9.3); Neutrophils # 7.7 K/mm3 (1.8-7.8); Neutrophils % 76.7 % (37.0-80.0); Platelet Count 464 K/mm3 (142-424); Potassium 3.3 mmoL/L (3.5-5.1); Red Blood Count 4.28 M/mm3 (4.60-6.20); Red Cell Distribution Width 15.7 % (11.5-17.5)
[2023-03-01 17:16] LABS: Blood Urea Nitrogen 18 mg/dl (9-20); Creatinine Clearance Estimated 57 mL/min (50-200); Estimated Glomerular Filt Rate 52 ml/min (>60); GFR (African American) 63 ML/MIN (>60)
[2023-03-01 17:17] LABS: Anion Gap 14.3 mEq/L (5-15); Carbon Dioxide 31 mmol/L (22.0-30.0); Glucose 135 mg/dl (74-100)
--- NOTE | 2023-03-01 22:42 | PC.NURSE ---
notified MD Mcallister of pt's persistent cough keeping pt awake, ordered robitussin 5mL q6 prn
[2023-03-02] VITALS (11 sets, daily range): BP systolic 118–152; BP diastolic 46–90; PULSE 60–75; RESP 12–22; TEMP 36.1–37.1; O2SAT 93–100; BMI 28.3
[2023-03-02 06:36] LABS: Chloride 100 mmol/L (98-107); Sodium 138 mmol/L (136-145)
[2023-03-02 06:37] LABS: Potassium 3.8 mmoL/L (3.5-5.1)
[2023-03-02 06:38] LABS: Basophils % 0.3 % (0.1-2.0); Eosinophils # 0.3 K/mm3 (0.0-0.4); Eosinophils % 3.4 % (0.1-12.0); Hematocrit 31.3 % (42.0-52.0); Hemoglobin 9.7 g/dL (14.1-18.0); Lymphocytes # 1.6 K/mm3 (0.7-4.5); Lymphocytes % 18.4 % (10-50); Mean Corpuscular HGB Conc 30.8 g/dL (31.8-35.4); Mean Corpuscular Hemoglobin 23.6 pg (27.0-31.2); Mean Corpuscular Volume 76.5 fl (80-94); Mean Platelet Volume 7.5 fl (7.4-10.4); Monocytes # 0.8 K/mm3 (0.1-1.0); Monocytes % 9.4 % (1.7-9.3); Neutrophils # 5.8 K/mm3 (1.8-7.8); Neutrophils % 68.4 % (37.0-80.0); Platelet Count 456 K/mm3 (142-424); Red Cell Distribution Width 15.7 % (11.5-17.5); White Blood Count 8.5 K/mm3 (4.8-10.8)
[2023-03-02 06:39] LABS: Alanine Aminotransferase 29 U/L (12-78); Albumin Level 3.1 g/dl (3.5-5.0); Alkaline Phosphatase 96 U/L (38-126); Aspartate Amino Transferase 43 U/L (17-59); Bilirubin,Total 0.6 mg/dl (0.2-1.3); Blood Urea Nitrogen 20 mg/dl (9-20); Creatinine Clearance Estimated 67 mL/min (50-200); Estimated Glomerular Filt Rate 63 ml/min (>60); GFR (African American) 77 ML/MIN (>60)
[2023-03-02 06:40] LABS: Albumin/Globulin Ratio 1.1 (1.1-1.8); Anion Gap 11.8 mEq/L (5-15); Calcium 7.9 mg/dl (8.4-10.2); Carbon Dioxide 30 mmol/L (22.0-30.0); Globulin 2.8 g/dL (1.3-3.2); Glucose 85 mg/dl (74-100); Total Protein,Serum 5.9 g/dl (6.3-8.2)
--- NOTE | 2023-03-02 07:36 | EXP.ACUTE.PN ---
Subjective *Date: 03/02/23 *Time: 07:36 Interval history: Patient feels fairly good this morning. Has had a persistent cough through the night but is nonproductive. He does describe in great detail a large amount of mucus he coughed up at home before he came to the hospital. PT notes reviewed, discussed his case with patient and his daughter. Medical Exam Vital signs and Labs for Last 24 Hours: Vital Signs Temp Pulse Pulse Resp BP BP Pulse Ox 03/02/23 06:00 60 12 133/62 93 L 03/02/23 04:00 60 03/02/23 04:00 98.2 F 03/02/23 04:00 96 03/02/23 04:00 60 17 123/54 L 97 03/02/23 02:00 64 17 132/52 L 96 03/02/23 00:00 60 03/02/23 00:00 64 16 126/49 L 97 03/02/23 00:00 98.7 F 03/01/23 22:00 65 14 128/62 96 03/01/23 20:00 69 16 113/42 L 95 03/01/23 20:00 95 03/01/23 20:00 70 03/01/23 20:00 98.3 F 03/01/23 19:30 74 20 110/44 L 93 L 03/01/23 18:35 64 21 115/69 95 03/01/23 18:00 60 22 114/52 L 95 03/01/23 16:47 60 03/01/23 17:00 66 20 106/75 L 96 03/01/23 16:00 67 21 105/43 L 97 03/01/23 16:34 65 21 94/36 L 92 L 03/01/23 15:30 65 12 109/44 L 97 03/01/23 15:18 97.6 F 03/01/23 14:59 65 22 124/53 L 96 03/01/23 14:30 75 20 154/68 H 93 L 03/01/23 14:00 60 20 153/66 H 94 L 03/01/23 08:00 70 03/01/23 13:45 69 22 146/79 H 93 L 03/01/23 13:50 65 19 150/60 H 96 03/01/23 13:30 63 21 144/61 H 92 L 03/01/23 13:05 98.9 F 60 13 138/60 95 03/01/23 12:50 60 19 148/59 H 94 L 03/01/23 13:20 98.6 F 60 19 150/63 H 96 03/01/23 12:45 62 17 138/64 91 L 03/01/23 12:30 60 17 147/65 H 91 L 03/01/23 12:25 66 17 145/69 H 90 L 03/01/23 12:20 65 17 121/70 90 L 03/01/23 12:15 63 70 18 134/63 90 L 03/01/23 08:14 98.9 F 75 17 155/68 H 98 03/01/23 07:56 96 03/01/23 07:40 98.1 F Intake and Output 03/01/23 03/02/23 03/02/23 19:59 03:59 11:59 Intake Total 240 / 480 240 / 480 Output Total 1955 / 2530 300 / 2530 275 / 2530 Balance -1714 / -2049 -60 / -2049 -275 / Intake: Intake, Oral Amount 240 / 480 240 / 480 Output: Output, Urine Amount 1955 / 2530 300 / 2530 275 / 2530 Other: Number of Unmeasured Voids 0 0 1 Number of Bowel Movements 1 Weight 220 lb 9 oz Patient Weight 03/02/23 11:59 Weight 220 lb 9 oz Laboratory Results - last 24 hr 03/01/23 05:31: NT-Pro-B Natriuret Pep 6550 H 03/01/23 11:47: Activated Clotting Time 250 H* 03/01/23 17:00: WBC 10.0 D, RBC 4.28 L, Hgb 10.1 L, Hct 32.5 L, MCV 76.0 L, MCH 23.7 L, MCHC 31.2 L, RDW 15.7, Plt Count 464 H, MPV 7.5, Neut % (Auto) 76.7, Lymph % (Auto) 12.4, [place] % (Auto) 9.6 H, Eos % (Auto) 0.9, Baso % (Auto) 0.2, Neut # (Auto) 7.7, Lymph # (Auto) 1.3, [place] # (Auto) 1.0, Eos # (Auto) 0.1, Baso # (Auto) 0.0 03/01/23 17:00: Sodium 140, Potassium 3.3 L, Chloride 98, Carbon Dioxide 31 H, Anion Gap 14.3, BUN 18, Creatinine 1.30 H, Estimated Creat Clear 57, Estimated GFR 52 L, Est GFR ( Amer) 63, Glucose 135 H D, Calcium 8.0 L 03/02/23 06:00: WBC 8.5, RBC 4.10 L, Hgb 9.7 L, Hct 31.3 L, MCV 76.5 L, MCH 23.6 L, MCHC 30.8 L, RDW 15.7, Plt Count 456 H, MPV 7.5, Neut % (Auto) 68.4, Lymph % (Auto) 18.4, [place] % (Auto) 9.4 H, Eos % (Auto) 3.4, Baso % (Auto) 0.3, Neut # (Auto) 5.8, Lymph # (Auto) 1.6, [place] # (Auto) 0.8, Eos # (Auto) 0.3, Baso # (Auto) 0.0 03/02/23 06:00: Sodium 138, Potassium 3.8, Chloride 100, Carbon Dioxide 30, Anion Gap 11.8, BUN 20, Creatinine 1.10, Estimated Creat Clear 67, Estimated GFR 63, Est GFR ( Amer) 77 D, Glucose 85 D, Calcium 7.9 L, Total Bilirubin 0.6, AST 43, ALT 29, Alkaline Phosphatase 96, Total Protein 5.9 L, Albumin 3.1 L, Globulin 2.8, Albumin/Globulin Ratio 1.1 I & O for Labs for Last 24 Hours: Intake & Output 02/27/23 06
--- NOTE | 2023-03-02 08:27 | EXP.CARD.PN ---
Subjective Subjective Date: 03/02/23 Time: 08:27 Principal diagnosis: NSTEMI, pneumonia Interval history: 87-year-old white male in bed in no acute distress. Some complaint of brief shortness of breath this morning that improved with cough productive of phlegm. The feeling of dying that he had on admission has resolved since stenting of his LAD yesterday. Chest x-ray on admission was concerning for pneumonia. Patient is on antibiotic therapy. Waiting placement for rehab services for discharge Exam Data for Last 24 hours Vital signs and Labs for Last 24 Hours: Temp Pulse Resp BP Pulse Ox 98.2 F 60 12 133/62 93 L 03/02/23 04:00 03/02/23 06:00 03/02/23 06:00 03/02/23 06:00 03/02/23 06:00 Laboratory Results - last 24 hr 03/01/23 05:31: NT-Pro-B Natriuret Pep 6550 H 03/01/23 11:47: Activated Clotting Time 250 H* 03/01/23 17:00: WBC 10.0 D, RBC 4.28 L, Hgb 10.1 L, Hct 32.5 L, MCV 76.0 L, MCH 23.7 L, MCHC 31.2 L, RDW 15.7, Plt Count 464 H, MPV 7.5, Neut % (Auto) 76.7, Lymph % (Auto) 12.4, [place] % (Auto) 9.6 H, Eos % (Auto) 0.9, Baso % (Auto) 0.2, Neut # (Auto) 7.7, Lymph # (Auto) 1.3, [place] # (Auto) 1.0, Eos # (Auto) 0.1, Baso # (Auto) 0.0 03/01/23 17:00: Sodium 140, Potassium 3.3 L, Chloride 98, Carbon Dioxide 31 H, Anion Gap 14.3, BUN 18, Creatinine 1.30 H, Estimated Creat Clear 57, Estimated GFR 52 L, Est GFR ( Amer) 63, Glucose 135 H D, Calcium 8.0 L 03/02/23 06:00: WBC 8.5, RBC 4.10 L, Hgb 9.7 L, Hct 31.3 L, MCV 76.5 L, MCH 23.6 L, MCHC 30.8 L, RDW 15.7, Plt Count 456 H, MPV 7.5, Neut % (Auto) 68.4, Lymph % (Auto) 18.4, [place] % (Auto) 9.4 H, Eos % (Auto) 3.4, Baso % (Auto) 0.3, Neut # (Auto) 5.8, Lymph # (Auto) 1.6, [place] # (Auto) 0.8, Eos # (Auto) 0.3, Baso # (Auto) 0.0 03/02/23 06:00: Sodium 138, Potassium 3.8, Chloride 100, Carbon Dioxide 30, Anion Gap 11.8, BUN 20, Creatinine 1.10, Estimated Creat Clear 67, Estimated GFR 63, Est GFR ( Amer) 77 D, Glucose 85 D, Calcium 7.9 L, Total Bilirubin 0.6, AST 43, ALT 29, Alkaline Phosphatase 96, Total Protein 5.9 L, Albumin 3.1 L, Globulin 2.8, Albumin/Globulin Ratio 1.1 I & O for Last 24 hours: Intake & Output 02/27/23 02/28/23 03/01/23 03/02/23 11:59 11:59 11:59 11:59 Intake Total 400 / 400 1551 / 1551 Output Total 5050 / 5050 2530 / 2530 Balance -4650 / -4650 -979 / -979 Weight 222 lb 1.6 oz 220 lb 9 oz Constitutional Constitutional: no acute distress *Routine Respiratory Exam Respiratory: Present rhonchi *Routine Cardiovascular Exam Cardiovascular: Present irregularly irregular *Routine Extremities Exam Extremities: Absent edema Progress Note: A&P Assessment and plan (1) HFrEF (heart failure with reduced ejection fraction): Status: Acute (2) Severe sepsis with acute organ dysfunction: Status: Acute (3) Chronic systolic CHF (congestive heart failure), NYHA class 2: Status: Acute (4) Coronary atherosclerosis: Status: Chronic (5) [facility] current use of anticoagulant: Status: Chronic (6) Status post coronary artery stent placement: Status: Chronic (7) NSTEMI (non-ST elevated myocardial infarction): Status: Acute Assessment and Plan Assessment and Plan for All Diagnoses:: 1.? Acute ID in setting of chronic LBBB. JUAN DIEGO to LAD, 03/01/2023 Entresto but increase to twice daily (patient reportedly only taken once daily) Begin carvedilol 3.125 mg twice daily Continue Plavix and statin therapy 2.? 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 Tach Continue digoxin Resume Xarelto 3.? Permanent pacemaker in situ with history of tachybradycardia syndrome including A-fib and V. tach Interrogated 03/01/2023 with no significant arrhythmias. A paced 27%, V paced 35%. Battery status 6 years. 4.? Memory issues which complicates all aspects of care Daughter is power of deputy attorney general Patient is on memantine 5.? HFrEF Continue Entresto and digoxin. Add carvedilol and diuretic therapy as n
--- NOTE | 2023-03-02 12:35 | PC.NURSE ---
Pt is very weak and unsteady on his feet, 2 assist to the chair. He reports sob with exertion.
--- NOTE | 2023-03-02 17:08 | PC.NURSE ---
Pt has been alert and oriented x3. Rhonchi and wheezes noted to lungs. He remains on 1L NC with oxygen sats measuring >92%. He was up to the chair for approx half the shift and tolerated well. He's used a urinal at the bedside. Approx 1000mls of clear dark urine out. Bruising and mild swelling to right wrist. Dressing is clean, dry and intact. He's had 1st degree block with wide qrs and prolonged qt on telemetry. Occasional pacer spikes noted. He's denied any complaints thus far. is at bedside. Bed is locked and in the lowest position, call light is within reach.
[2023-03-03] VITALS: BP 140/68; PULSE 60; PULSE 61; RESP 20; TEMP 36.6; O2SAT 96
[2023-03-03 04:00] VITALS: BP 148/65; PULSE 58; PULSE 60; RESP 20; TEMP 36.2; O2SAT 96; BMI 29.5
[2023-03-03 07:38] VITALS: BP 144/64; PULSE 69; RESP 31; TEMP 36.7; O2SAT 97
[2023-03-03 08:00] VITALS: PULSE 64; PULSE 70; O2SAT 97
--- NOTE | 2023-03-03 08:28 | EXP.DC.SUM ---
General Admission date:: 02/28/23 Discharge date: 03/03/23 HPI HPI HPI: 87-year-old male with history of coronary disease who has been feeling badly for a couple of weeks. He is also had low-grade temperatures. His daughter has told me that he had a couple episodes of hallucinatory activity where he feels like he has been pulling bloody worms out of his scalp and also told his family that he fell and fractured his eye socket even though they had no evidence of this and he had no bleeding around his eye. They brought him to the emergency department late last night because of dyspnea and chest pain In the ER found to have CHF exacerbation, met sepsis criteria, probably from a UTI and had elevated troponins. Admitted to hospital for antibiotic treatment, diuresis and cardiology evaluation Hospital Course Hospital Course Hospital Course: Patient was admitted, placed on antibiotics for sepsis and pneumonia coverage. Did well. Echo was done showing EF 35 to 40%. Patient was taken to [facility] [employer] [facility] and stent was placed. Please see below notes for details. ANGIOGRAPHIC RESULTS The left main artery Normal The left anterior descending artery Has a proximal hazy angiographically indeterminate stenosis followed by a widely patent stent in the proximal and mid LAD segment.? Distal to the mid LAD stent there are diffuse 30 and 40% mid vessel distal stenosis.? The first diagonal artery has a stent which is patent however there appears to be an ostial 70% stenosis. The circumflex artery Is a dominant vessel with proximal and mid vessel diffuse 30% stenoses. The right coronary artery There is nondominant has a proximal 90% stenosis and subtotally occluded at mid segment.? Right to right and [id number] collaterals fill the distal vessel The [place] ventriculogram reveals Not performed The left ventricular end-diastolic pressure Not measured IMPRESSION Severe proximal LAD disease as described above with successful stenting reducing the stenosis to 0% with 1 drug-eluting stent Chronically occluded right coronary artery which is is partially collateralized and best treated medically PLAN 1. Dual antiplatelet therapy combined with Xarelto for the next 30 days.? After 30 days drop aspirin and continue Plavix and Xarelto 2. Continue standard medical therapy for ischemic heart disease 3. Cardiac rehabilitation 4. Avoidance of tobacco products 5. Check echocardiogram and base medical regimen on ejection fraction 6. LDL less than 55 to be achieved with high intensity statin Electronically signed by : Len Joe MD? 03/01/2023 12:10:44 Patient stabilized, did have a bit of hematuria, Charles catheter was removed and this essentially resolved, he had some very light-colored blood in his urine this morning but no urinary pain or evidence of obstruction. PT evaluation was done. It was felt patient was benefit from long-term care placement for at least 2 to 3 weeks of rehab and medication monitoring. We will be transferred [place] the [facility] today. He will receive 3 more days of cefdinir to complete 7 days total of antibiotics. Cardiac medications will be as noted on his discharge medication list. We will see him on rounds next Monday and cardiology will follow him up in 2 weeks. Exam Data for Last 24 hours Vital signs and Labs for Last 24 Hours: Temp Pulse Resp BP Pulse Ox 98.0 F 69 31 H 144/64 H 97 03/03/23 07:38 03/03/23 07:38 03/03/23 07:38 03/03/23 07:38 03/03/23 07:38 I & O for Last 24 hours: Intake & Output 02/28/23 03/01/23 03/02/23 03/03/23 11:59 11:59 11:59 11:59 Intake Total 400 / 400 1551 / 1551 2702 / 2702 Output Total 5050 / 5050 2905 / 3505 1450 / 1450 Balance -4650 / -4650 -1354 / -1954 1252 / 1252 Weight 222 lb 1.6 oz 220 lb 7.396 oz 230 lb 1 oz Microbiology Reports for the Last 24 Hours: Microbiology 02/28/23 21:49 Blood Blood Culture - Preliminary
[2023-03-03 08:29] VITALS: PULSE 64
--- NOTE | 2023-03-03 08:43 | PC.NURSE ---
COURTESY TECH NOTE; ROUNDED ON PT 0830, PT DENIED NEED FOR DRINK, ASSISTANCE WITH RESTROOM, AND NEED TO REPOSITION IN BED. CALL LIGHT WITHIN REACH, NO FURTHER REQUESTS AT THIS TIME HAILEY WILKES
--- NOTE | 2023-03-03 09:06 | EXP.CARD.PN ---
Subjective Subjective Date: 03/03/23 Time: 09:06 Principal diagnosis: NSTEMI, pneumonia Interval history: 87-year-old white male in bed in no acute distress. Some mild substernal chest discomfort this morning with diaphoresis which resolved after lowering the temperature in the room. Patient states he feels much better than he did on admission. Echocardiogram this admission shows ejection fraction 35-40% which is reduced compared to previous echo showing EF 50-55%. Discussed the results with the patient and his daughter that hopefully ejection fraction will improve after having stented his LAD and changing in medications. We will reassess this in 30 to 60 days. Exam Data for Last 24 hours Vital signs and Labs for Last 24 Hours: Temp Pulse Resp BP Pulse Ox 98.0 F 64 31 H 144/64 H 97 03/03/23 07:38 03/03/23 08:29 03/03/23 07:38 03/03/23 07:38 03/03/23 07:38 I & O for Last 24 hours: Intake & Output 02/28/23 03/01/23 03/02/23 03/03/23 11:59 11:59 11:59 11:59 Intake Total 400 / 400 1551 / 1551 2702 / 2702 Output Total 5050 / 5050 2905 / 3505 1450 / 1450 Balance -4650 / -4650 -1354 / -1954 1252 / 1252 Weight 222 lb 1.6 oz 220 lb 7.396 oz 230 lb 1 oz Microbiology Reports for the Last 24 Hours: Microbiology 02/28/23 21:49 Blood Blood Culture - Preliminary NO GROWTH AFTER 48 HOURS 02/28/23 21:49 Blood Blood Culture - Preliminary NO GROWTH AFTER 48 HOURS Constitutional Constitutional: no acute distress *Routine Respiratory Exam Respiratory: Present CTA bilaterally *Routine Cardiovascular Exam Cardiovascular: Present irregularly irregular *Routine Extremities Exam Extremities: Absent edema Progress Note: A&P Assessment and plan (1) HFrEF (heart failure with reduced ejection fraction): Status: Acute (2) Severe sepsis with acute organ dysfunction: Status: Acute (3) Chronic systolic CHF (congestive heart failure), NYHA class 2: Status: Acute (4) Coronary atherosclerosis: Status: Chronic (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 Acute ID in setting of chronic LBBB. JUAN DIEGO to LAD, 03/01/2023 Entresto but increase to twice daily (patient reportedly only taken once daily) Added carvedilol 3.125 mg twice daily Continue Plavix and statin therapy 2.? 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 Tach Continue digoxin Resume Xarelto 3.? Permanent pacemaker in situ with history of tachybradycardia syndrome including A-fib and V. tach Interrogated 03/01/2023 with no significant arrhythmias. A paced 27%, V paced 35%. Battery status 6 years. 4.? Memory issues which complicates all aspects of care Daughter is power of corporate associate attorney Patient is on memantine 5.? HFrEF Continue Entresto and digoxin. Add carvedilol and diuretic therapy as needed 6.? 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 Hyperlipidemia Continue statin Stable from a cardiac standpoint for discharge home. Follow-up in our office in 1 to 2 weeks. Home medication recommendations: Atorvastatin 40 mg daily Aspirin 81 mg daily for 1 month only then discontinue Plavix 75 mg daily Xarelto 20 mg daily Carvedilol 3.125 mg twice daily Entresto 49/51 mg twice daily Digoxin 0.125 mg daily Furosemide 40 mg daily Spironolactone 25 mg twice daily
--- NOTE | 2023-03-03 09:52 | P.CONPHA_ITS ---
PHA Pressurization Mechanic Discharge Med Tax Investigator: PATIENT WAS DISCHARGED TO [facility] ON FOLLOWING MEDICATIONS: ASPIRIN CARVEDILOL PLAVIX ATORVASTATIN ENTRESTO ALL NEW MEDICATIONS WERE SENT TO [facility]. -LUZ QUAND
--- NOTE | 2023-03-03 09:52 | HMH.PHACL ---
PHA Business Development Analyst Discharge Med Intercell Connector Placer: PATIENT WAS DISCHARGED TO [facility] ON FOLLOWING MEDICATIONS: ASPIRIN CARVEDILOL PLAVIX ATORVASTATIN ENTRESTO ALL NEW MEDICATIONS WERE SENT TO [facility]. -LUZ QUAND
--- NOTE | 2023-03-03 10:45 | PC.NURSE ---
during rounds with Alana moss, it was ordered for pt to have an increased dose of Entresto started this am. Alana moss to enter order. order not entered as of 999, clarified with alana moss, order start date was entered for tomorrow, but alana moss would like pt to start increased med dose today. 1 time dose order sent to pharmacy for pt to have additional Entresto 24/26mg per alana moss now.
--- NOTE | 2023-03-03 11:52 | PC.NURSE ---
1055 called report to [facility]
== END 2023-03-03 11:45 | DRG 853 ==
LOC: ER 20:44 → 2ND 21:08
PROVIDERS: Internal Medicine; Physician Assistant; Admitting Provider Family Medicine; Emergency Provider Emergency Medicine; PCP Internal Medicine Adolescent Medicine; Visit Provider Internal Medicine Adolescent Medicine
PROC: 027034Z Dilation of Coronary Artery, One Artery with Drug-eluting Intraluminal Device, Percutaneous Approach (ICD-10-PCS; principal; 2023-03-01 12:15)
DX: A41.9 Sepsis, unspecified organism (principal); I21.4 Non-ST elevation (NSTEMI) myocardial infarction; J18.9 Pneumonia, unspecified organism; J96.91 Respiratory failure, unspecified with hypoxia; I50.23 Acute on chronic systolic (congestive) heart failure; I25.110 Atherosclerotic heart disease of native coronary artery with unstable angina pectoris; R65.20 Severe sepsis without septic shock; I11.0 Hypertensive heart disease with heart failure; E78.5 Hyperlipidemia, unspecified; I48.91 Unspecified atrial fibrillation; Z95.5 Presence of coronary angioplasty implant and graft; Z95.0 Presence of cardiac pacemaker; I44.7 Left bundle-branch block, unspecified; I08.0 Rheumatic disorders of both mitral and aortic valves
CPT/HCPCS: C9600; 36415; 51702; 71045; 80048; 80053; 80162; 82803; 83605; 83735; 83880; 84145; 84484; 85025; 85347; 85651; 86140; 87040; 87070; 87205; 87636; 92928; 93005; 93306; 93458; 97110; 97163; 97165; 97530; 97535; 99152; 99285; C1725; C1769; C1876; C9803; J0456; J0696; J1644; Q9967; U0003; U0005

== ENCOUNTER 2023-03-04 01:00 | Emergency (ER) | payer MEDICARE, BC, SELFPAY ==
[2023-03-04 01:00] VITALS: BP 131/62; PULSE 58; RESP 16; TEMP 36.7; O2SAT 96; BMI 28.8
[2023-03-04 01:25] LABS: Basophils % 0.4 % (0.1-2.0); Eosinophils # 0.4 K/mm3 (0.0-0.4); Eosinophils % 3.4 % (0.1-12.0); Hematocrit 34.5 % (42.0-52.0); Hemoglobin 10.4 g/dL (14.1-18.0); Lymphocytes # 1.7 K/mm3 (0.7-4.5); Mean Corpuscular HGB Conc 30.1 g/dL (31.8-35.4); Mean Corpuscular Hemoglobin 23.1 pg (27.0-31.2); Mean Corpuscular Volume 76.7 fl (80-94); Mean Platelet Volume 7.4 fl (7.4-10.4); Monocytes # 0.9 K/mm3 (0.1-1.0); Monocytes % 8.3 % (1.7-9.3); Neutrophils # 7.4 K/mm3 (1.8-7.8); Neutrophils % 71.8 % (37.0-80.0); Platelet Count 475 K/mm3 (142-424); Red Blood Count 4.49 M/mm3 (4.60-6.20); Red Cell Distribution Width 15.6 % (11.5-17.5); White Blood Count 10.3 K/mm3 (4.8-10.8)
[2023-03-04 01:26] LABS: Chloride 97 mmol/L (98-107)
[2023-03-04 01:27] LABS: Potassium 3.8 mmoL/L (3.5-5.1); Sodium 137 mmol/L (136-145)
[2023-03-04 01:29] LABS: Alanine Aminotransferase 32 U/L (12-78); Albumin Level 3.5 g/dl (3.5-5.0); Alkaline Phosphatase 103 U/L (38-126); Aspartate Amino Transferase 44 U/L (17-59); Bilirubin,Total 0.4 mg/dl (0.2-1.3); Blood Urea Nitrogen 18 mg/dl (9-20); Creatinine Clearance Estimated 73 mL/min (50-200); Estimated Glomerular Filt Rate 71 ml/min (>60); GFR (African American) 86 ML/MIN (>60)
[2023-03-04 01:30] LABS: Albumin/Globulin Ratio 1.2 (1.1-1.8); Anion Gap 13.8 mEq/L (5-15); Calcium 8.3 mg/dl (8.4-10.2); Carbon Dioxide 30 mmol/L (22.0-30.0); Globulin 2.9 g/dL (1.3-3.2); Glucose 133 mg/dl (74-100); Total Protein,Serum 6.4 g/dl (6.3-8.2)
--- NOTE | 2023-03-04 01:42 | HMH.EDEPIS ---
Discharge Plan Disposition Patient Disposition: Xfer [facility] Prescriptions Prescriptions: New cephalexin [cephalexin] 500 mg capsule 500 mg PO TID Qty: 21 0RF No Action memantine 10 mg tablet 10 mg PO BID escitalopram oxalate 10 mg tablet 10 mg PO DAILY digoxin 125 mcg (0.125 mg) tablet 125 mcg PO DAILY Qty: 90 3RF atorvastatin 40 MG tablet 40 mg PO DAILY clopidogrel 75 MG tablet 75 mg PO DAILY vitamin B complex Capsule 1 cap PO DAILY calcium phos,dibas-vitamin D3 77-400 mg-unit Tablet 1 tab PO DAILY donepezil 5 mg Tablet 5 mg PO DAILY cefdinir 300 mg capsule 300 mg PO BID 3 Days Qty: 6 0RF aspirin 81 mg tablet,delayed release (DR/EC) 81 mg PO DAILY Qty: 30 0RF Entresto 49-51 mg tablet 1 tab PO BID Qty: 60 0RF furosemide 40 mg tablet 40 mg PO DAILY Qty: 30 0RF spironolactone 25 mg tablet 25 mg PO BID Qty: 60 0RF carvedilol 3.125 mg tablet 3.125 mg PO BID Qty: 60 0RF Rx Instructions: must administer with a meal/food levothyroxine 50 MCG tablet 50 mcg PO DAILY rivaroxaban 20 MG tablet 20 mg PO QPMWITHMEAL pantoprazole [Protonix] 40 mg tablet,delayed release (DR/EC) 40 mg PO DAILY Clinical Impressions Clinical Impression: Epistaxis, Acute UTI (urinary tract infection) Instructions Patient Instructions: DI for Nosebleed Discharge ED Provider: Calin (ED)Seb Epistaxis HPI General Chief complaint: Epistaxis Stated complaint: Gross hematuria & nosebleed on dual antiplat Time Seen by Provider: 03/04/23 01:10 Mode of Arrival: EMS Source of Information: Patient, EMS and Medical Record Limitations: No Limitations Description of Symptoms (Recalled from ER Triage Doc. by RN): custodial reports pt's right nostril bleeding and passed a dime size clot and darker hematuria at last void. pt has no c/o. rt nostril has a scant amount of oozing History of Present Illness HPI Narrative: pt with recent nonstemi and had cath with stent and on xarelto and dual plt therapy sent from [facility] with lt nares oozing and possible hematuria complaint: epistaxis Location: left nostril Onset (ago): hour(s) Duration: intermittent Context: aspirin use and other anticoagulant use Related Data Home Medications Medication Instructions Recorded Confirmed levothyroxine 50 mcg tablet 50 mcg PO DAILY thyroid 10/14/20 02/28/23 atorvastatin 40 mg tablet 40 mg PO DAILY cholesterol 11/24/20 03/01/23 clopidogrel 75 mg tablet 75 mg PO DAILY antiplatelet 11/24/20 02/28/23 escitalopram oxalate 10 mg tablet 10 mg PO DAILY Mood 04/26/21 02/28/23 rivaroxaban 20 mg tablet 20 mg PO QPMWITHMEAL ANTI PLATELET 06/25/21 02/28/23 memantine 10 mg tablet 10 mg PO BID memory 07/29/22 02/28/23 pantoprazole 40 mg tablet,delayed 40 mg PO DAILY GERD 08/16/22 02/28/23 release (Protonix) calcium phosphate,dibasic 77 1 tab PO DAILY Supplement 02/28/23 02/28/23 mg-vitamin D3 400 unit tablet vitamin B complex 1 cap PO DAILY Supplement 02/28/23 03/01/23 donepezil 5 mg tablet 5 mg PO DAILY Memory 03/01/23 03/01/23 Previous Rx's Medication Instructions Recorded digoxin 125 mcg (0.125 mg) tablet 125 mcg PO DAILY heart rate #90 03/03/22 tabs aspirin 81 mg tablet,delayed 81 mg PO DAILY #30 tabs 03/03/23 release carvedilol 3.125 mg tablet 3.125 mg PO BID #60 tabs 03/03/23 cefdinir 300 mg capsule 300 mg PO BID 3 days #6 caps 03/03/23 furosemide 40 mg tablet 40 mg PO DAILY #30 tabs 03/03/23 sacubitril 49 mg-valsartan 51 mg 1 tab PO BID #60 tabs 03/03/23 tablet (Entresto) spironolactone 25 mg tablet 25 mg PO BID #60 tabs 03/03/23 cephalexin 500 mg capsule 500 mg PO TID #21 caps 03/04/23 Allergies Allergy/AdvReac Type Severity Reaction Status Date / Time No Known Allergies Allergy Verified 08/24/22 13:03 [facility] Disclaimer: The information contained in this section may have been updated after the patient was seen, as th
[2023-03-04 01:55] VITALS: BP 111/63; PULSE 60; RESP 16; O2SAT 96
[2023-03-04 02:01] VITALS: BP 138/62; PULSE 60; RESP 19; O2SAT 95
[2023-03-04 02:06] LABS: Appearance,Urine TURBID (Clear); Bilirubin,Urine Negative (Negative); Blood, Urine 3+ (Negative); Color,Urine RED (Yellow); Glucose,Urine (UA) Negative (Negative); Ketones,Urine 1+ (Negative); Leukocyte Esterase,Urine 2+ (Negative); Nitrate,Urine POSITIVE (Negative); PH,Urine 6.5 (5.0-8.5); Protein,Urine 3+ (Negative)
[2023-03-04 02:07] LABS: Microscopic, Urine URINE MICROSCOPIC (MICROSCOPIC)
[2023-03-04 02:17] LABS: Bacteria,Urine 2+ /lpf; RBC,Urine TNTC #/hpf (0-3)
[2023-03-04 02:30] VITALS: BP 136/62; PULSE 60; RESP 18; O2SAT 96
--- NOTE | 2023-03-04 02:30 | PC.NURSE ---
reviewing UA results, ordered rocephin 1 gram IV d/t UTI. Urine cx is pending
[2023-03-04 02:33] VITALS: BP 115/69; PULSE 60; RESP 17; TEMP 36.7; O2SAT 94
--- NOTE | 2023-03-04 03:02 | PC.NURSE ---
Called pt's and updated on POC and she reports she will call her daughter to transport pt back to [place].
--- NOTE | 2023-03-04 03:16 | PC.NURSE ---
Pt's daughter Galina called. She was given an update on POC and reported she would be here in approx 15-20 min.
--- NOTE | 2023-03-04 03:32 | PC.NURSE ---
Gave report to Crista @ [place].
== END 2023-03-04 04:14 ==
PROVIDERS: Emergency Provider Emergency Medicine; PCP Internal Medicine Adolescent Medicine
DX: N39.0 Urinary tract infection, site not specified (principal); R04.0 Epistaxis; I48.91 Unspecified atrial fibrillation; I25.10 Atherosclerotic heart disease of native coronary artery without angina pectoris; I10 Essential (primary) hypertension; E78.5 Hyperlipidemia, unspecified; E03.9 Hypothyroidism, unspecified; Z79.01 Long term (current) use of anticoagulants; Z95.0 Presence of cardiac pacemaker; Z95.5 Presence of coronary angioplasty implant and graft
CPT/HCPCS: 30901; 80053; 81001; 85025; 87086; 96374; 99284; J0696

== ENCOUNTER → 2023-03-09 13:57 | Outpatient (CLI) | payer MEDICARE, BC, SELFPAY ==
--- NOTE | 2023-03-09 14:07 | CA_ITS ---
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 FINDINGS: DUPLEX SCAN RIGHT UPPER EXTREMITY ARTERIES TECHNIQUE: Axial and color Doppler waveform evaluation of the right radial artery was performed. FINDINGS: The right radial artery is patent. There is a hyperechoic mass superficial to the radial artery which is likely a hematoma. IMPRESSION: No evidence of right radial artery thrombosis or pseudoaneurysm. Likely hematoma superficial to the radial artery. Reviewed, Interpreted and Dictated by Yazan Carbajal III, MD Transcribed by Gris Wang Authenticated and [facility]
== END ==
LOC: RAD 14:00 → RT 14:05
PROVIDERS: PCP Internal Medicine Adolescent Medicine; Visit Provider Nurse Practitioner Family
DX: I25.10 Atherosclerotic heart disease of native coronary artery without angina pectoris; I48.91 Unspecified atrial fibrillation; I50.22 Chronic systolic (congestive) heart failure; I77.0 Arteriovenous fistula, acquired; S40.029A Contusion of unspecified upper arm, initial encounter; Z95.5 Presence of coronary angioplasty implant and graft; I11.0 Hypertensive heart disease with heart failure
CPT/HCPCS: 93931

== ENCOUNTER 2023-03-19 19:57 | Inpatient (IN) | payer MEDICARE, BC, SELFPAY ==
[2023-03-19] VITALS (8 sets, daily range): BP systolic 144–185; BP diastolic 70–97; PULSE 63–100; RESP 18–30; TEMP 37; O2SAT 95–98; BMI 28.0
--- NOTE | 2023-03-19 20:00 | PC.NURSE ---
Blood collected by EMS sent to LAB
--- NOTE | 2023-03-19 20:04 | ECG_ITS ---
APPROVED REPORT Exam: Resting ECG HR:71 bpm ECG Measurements Heart Rate 71 AXES NJ 264 P 2 QRSd 189 QRS 69 QT 429 T 93 QTc 451 Conclusion SINUS RHYTHM WITH FIRST DEGREE AV BLOCK LEFT BUNDLE BRANCH BLOCK [120+ ms QRS DURATION, 80+ ms Q/S IN V1/V2, 85+ ms R IN I/aVL/V5/V6] ABNORMAL ECG UNCONFIRMED REPORT Electronically signed by : Kelvin Mcallister MD 03/20/2023 14:02:42
--- NOTE | 2023-03-19 20:05 | XR_ITS ---
PROCEDURE INFORMATION: Exam: XR Chest Exam date and time: 03/19/2023 8:16 PM Age: 87 years old Clinical indication: Shortness of breath; Prior surgery; Surgery date: 6+ months; Surgery type: Pacemaker; Additional info: SOA TECHNIQUE: Imaging protocol: Radiologic exam of the chest. Views: 1 view. Total images: 1 COMPARISON: CR XR CHEST PORTABLE 02/28/2023 8:41 PM FINDINGS: Tubes, catheters and devices: Status post left subclavian cardiac pacemaker. Lungs: Interval worsening considerable opacification at the right lung base and retrocardiac left lung base likely reflecting combined airspace consolidation, parenchymal volume loss, atelectasis, and small pleural effusions. Central vascular congestion and peribronchial cuffing/edema similar to the prior study. Pleural spaces: Bilateral pleural effusions increased in the interval. No pneumothorax. Heart/Mediastinum: Stable mild cardiomegaly. No mediastinal widening. Vasculature: Severely atherosclerotic aortic arch. Bones/joints: Partially visualized degenerative changes thoracic spine. IMPRESSION: 1. Interval worsening considerable opacification of the right lung base and retrocardiac left lung base. 2. Increasing bilateral pleural effusions. 3. Similar pattern of central vascular congestion and peribronchial cuffing.
--- NOTE | 2023-03-19 20:09 | PC.NURSE ---
RT at BS to collect ABG
[2023-03-19 20:13] LABS: Basophils % 0.2 % (0.1-2.0); Eosinophils # 0.1 K/mm3 (0.0-0.4); Eosinophils % 1.8 % (0.1-12.0); Hematocrit 32.7 % (42.0-52.0); Hemoglobin 9.9 g/dL (14.1-18.0); Lymphocytes # 1.5 K/mm3 (0.7-4.5); Lymphocytes % 21.5 % (10-50); Mean Corpuscular HGB Conc 30.4 g/dL (31.8-35.4); Mean Corpuscular Hemoglobin 23.3 pg (27.0-31.2); Mean Corpuscular Volume 76.8 fl (80-94); Mean Platelet Volume 7.5 fl (7.4-10.4); Monocytes # 0.7 K/mm3 (0.1-1.0); Monocytes % 9.9 % (1.7-9.3); Neutrophils # 4.7 K/mm3 (1.8-7.8); Neutrophils % 66.7 % (37.0-80.0); Platelet Count 373 K/mm3 (142-424); Red Blood Count 4.26 M/mm3 (4.60-6.20); Red Cell Distribution Width 16.5 % (11.5-17.5)
--- NOTE | 2023-03-19 20:13 | PC.NURSE ---
DR. BURT AT
[2023-03-19 20:19] LABS: Alanine Aminotransferase 31 U/L (12-78); Albumin Level 3.5 g/dl (3.5-5.0); Albumin/Globulin Ratio 1.3 (1.1-1.8); Alkaline Phosphatase 103 U/L (38-126); Anion Gap 10.2 mEq/L (5-15); Aspartate Amino Transferase 45 U/L (17-59); Bilirubin,Total 0.8 mg/dl (0.2-1.3); Blood Urea Nitrogen 16 mg/dl (9-20); Calcium 8.5 mg/dl (8.4-10.2); Carbon Dioxide 27 mmol/L (22.0-30.0); Chloride 103 mmol/L (98-107); Creatinine Clearance Estimated 71 mL/min (50-200); Estimated Glomerular Filt Rate 71 ml/min (>60); GFR (African American) 86 ML/MIN (>60); Globulin 2.8 g/dL (1.3-3.2); Glucose 101 mg/dl (74-100); Potassium 4.2 mmoL/L (3.5-5.1); Sodium 136 mmol/L (136-145); Total Protein,Serum 6.3 g/dl (6.3-8.2)
[2023-03-19 20:24] LABS: C-Reactive Protein 0.5 mg/L (0-4)
[2023-03-19 20:33] LABS: NT Pro Brain Natriuretic Pep. 7330 pg/mL (0-450)
--- NOTE | 2023-03-19 20:33 | HMH.EDSOB ---
Discharge Plan Disposition Patient Disposition: Admitted Chief Complaint: Shortness of Breath/Dyspnea Clinical Impressions Clinical Impression: CAP (community acquired pneumonia), CAD (coronary artery disease), Chronic systolic CHF (congestive heart failure), NYHA class 2, SIRS (systemic inflammatory response syndrome) Discharge ED Provider: Calin (ED)Seb Resp/SOB HPI General Chief Complaint: Shortness of Breath/Dyspnea Stated Complaint: SOA Time Seen by Provider: 03/19/23 20:33 Mode of Arrival: EMS Source of Information: Patient and Medical Record Limitations: No Limitations Description of Symptoms (Recalled from ER Triage Doc. by RN): pt c/o increasing SOA that started after being exposed to warm air from outside History of Present Illness recent admit for cad with stent and had rehab and now has increased sob and hx of abn cxr - MD Complaint: shortness of breath and cough Onset (ago): day(s) Context: recent illness Severity: moderate Consistency/Duration: intermittent Relieving factors: oxygen Known history of: COPD and congestive heart failure Associated symptoms: denies other symptoms Treatment prior to arrival: oxygen Related Data Home oxygen amount: 2 liters Home Medications Medication Instructions Recorded Confirmed levothyroxine 50 mcg tablet 50 mcg PO DAILY thyroid 10/14/20 03/19/23 atorvastatin 40 mg tablet 40 mg PO DAILY cholesterol 11/24/20 03/19/23 clopidogrel 75 mg tablet 75 mg PO DAILY antiplatelet 11/24/20 03/19/23 escitalopram oxalate 10 mg tablet 10 mg PO DAILY Mood 04/26/21 03/19/23 rivaroxaban 20 mg tablet 20 mg PO QPMWITHMEAL ANTI PLATELET 06/25/21 03/19/23 memantine 10 mg tablet 10 mg PO BID memory 07/29/22 03/19/23 pantoprazole 40 mg tablet,delayed 40 mg PO DAILY GERD 08/16/22 03/19/23 release (Protonix) calcium phosphate,dibasic 77 1 tab PO DAILY Supplement 02/28/23 03/19/23 mg-vitamin D3 400 unit tablet vitamin B complex 1 cap PO DAILY Supplement 02/28/23 03/19/23 donepezil 5 mg tablet 5 mg PO DAILY Memory 03/01/23 03/19/23 multivitamin (Multiple Vitamins 1 tab PO DAILY Supplement 03/09/23 03/19/23 tablet) sacubitril 49 mg-valsartan 51 mg 1 tab PO BID Heart Failure 03/19/23 03/19/23 tablet (Entresto) trazodone 50 mg tablet 50 mg PO HS slleep 03/19/23 03/19/23 Previous Rx's Medication Instructions Recorded digoxin 125 mcg (0.125 mg) tablet 125 mcg PO DAILY heart rate #90 03/03/22 tabs Allergies Allergy/AdvReac Type Severity Reaction Status Date / Time No Known Allergies Allergy Verified 03/09/23 13:25 [facility] Disclaimer: The information contained in this section may have been updated after the patient was seen, as this information can be updated by other users. Medical History Atrial fibrillation CAD (coronary artery disease) Daytime somnolence Dyspnea Essential hypertension Hernia History of heart attack History of pacemaker Hyperlipidemia Hypertension Hypothyroid Symptomatic bradycardia Surgical History History of permanent cardiac pacemaker placement Hx of kidney removal left partial removal CA Status post coronary artery stent placement Family History Father Family history of cancer Son Family history of cancer Social History Smoking Status: Never smoker alcohol intake: never substance use type: denies use current occupational status: retired Travel in the last 8 weeks: None household members: spouse housing: house caffeine: Yes ROS Obtained: Yes All systems reviewed & no additional complaints except as documented Physical Exam General General appearance: alert Head Head exam: normocephalic Eye Eye exam: Present PERRL and EOMI ENT ENT exam: Present mucous membranes moist Neck Neck exam: Present trac
[2023-03-19 20:37] LABS: Procalcitonin 0.042 ng/mL (0.0-2.0)
[2023-03-19 20:41] LABS: Erythrocyte Sedimentation Rate 16 mm/hr (0-20)
--- NOTE | 2023-03-19 20:48 | PC.NURSE ---
Spoke to Will in RT, he was unable to get an ABG. Spoke to Attending and he is okay with not having this done
[2023-03-19 21:02] LABS: Lactic Acid 1.4 mmol/L (0.7-2.1)
--- NOTE | 2023-03-19 21:08 | PC.NURSE ---
ROUNDED ON PT NOTHING NEEDED AT THIS TIME, FAMILY AT BS
[2023-03-19 22:01] LABS: Coronavirus 19, PCR Not Detected (NotDetected); Influenza A, PCR Not Detected (NotDetected); Influenza B, PCR Not Detected (NotDetected)
--- NOTE | 2023-03-19 22:01 | PC.NURSE ---
paging Dr Mcallister for admission
--- NOTE | 2023-03-19 22:08 | PC.NURSE ---
Dr. Layton s/w Dr. Mcallister, agrees to admit
--- NOTE | 2023-03-19 22:09 | CT_ITS ---
PROCEDURE INFORMATION: Exam: CT Chest Without Contrast; Diagnostic; High Resolution Exam date and time: 03/19/2023 10:27 PM Age: 87 years old Clinical indication: Abnormal findings; Abnormal radiologic exam of lung or chest; Additional info: Abn chest TECHNIQUE: Imaging protocol: Diagnostic computed tomography of the chest without contrast. Exam was performed with high resolution protocol. Total images: 1611 Radiation optimization: All CT scans at this facility use at least one of these dose optimization techniques: automated exposure control; mA and/or kV adjustment per patient size (includes targeted exams where dose is matched to clinical indication); or iterative reconstruction. REPORTING DATA: Count of CT and Cardiac NM exams in prior 12 months: This patient has received 0 known CTs and 0 known cardiac nuclear medicine studies in the 12 months prior to the current study. COMPARISON: CT CHEST W CON 08/19/2019 10:08 AM FINDINGS: Lungs: Atrophic thyroid gland with subcentimeter right lobe nodule requiring no strict follow-up. The trachea and main bronchi are patent. Diffuse bronchial wall thickening or peribronchial edema with attenuation of bronchial lumens. Considerable volume loss with compressive atelectasis and or infiltrate throughout the bilateral lower lobes, right middle lobe, and to a lesser extent right upper lobe. Small volume peribronchial consolidation posterior right upper lobe implying bronchopneumonia. Interlobular septal thickening compatible with pulmonary interstitial edema. Mild upper lobe centrilobular emphysema. 7 mm calcified right upper lobe granuloma, axial image 40. Pleural space: Large right and moderate left pleural effusions. No pneumothorax. Heart: Mild cardiomegaly. Trace pericardial effusion. Coronary arteries: Extensive coronary artery calcifications. Vasculature: Severely atherosclerotic thoracic aorta without aneurysm. Two vessel branching aortic arch is a normal anatomic variation. Enlarged pulmonary arteries implying pulmonary arterial hypertension. Lymph nodes: Scattered small mediastinal lymph nodes are not pathologically enlarged. Limited hilar assessment. Adrenals: 16 mm lipid rich right adrenal adenoma. Kidneys and ureters: Partially visualized exophytic small hemorrhagic right renal cyst. Intraperitoneal space: No acute process in the upper abdomen. 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 Partially visualized severe degenerative changes cervical spine. Very minor broad-based thoracic dextrocurvature. Soft tissues: Minor body wall edema/anasarca. IMPRESSION: 1. Large right and moderate left pleural effusions. Recommend diagnostic/therapeutic thoracentesis. 2. Volume loss with compressive atelectasis and/or infiltrate throughout the bilateral lower lobes and right middle lobe. 3. Focal small volume posterior right upper lobe bronchopneumonia. 4. Diffuse bronchial wall thickening implying bronchitis or peribronchial edema. 5. Pulmonary interstitial edema. 6. Mild upper lobe centrilobular emphysema. 7. Mild cardiomegaly with extensive coronary artery calcifications. 8. Mild body wall edema/anasarca. COMMENTS: 1. Consistent with the [employer]'s Incidental Findings Committee white paper (J Am Asael Radiol 2017): For any incidental adrenal lesion greater than or equal to 1 cm but less than or equal to 4 cm classified in this report as benign, likely benign, or containing fat (including classification as an adenoma or myelolipoma), no follow-up imaging is recommended per consensus recommendations based on imaging criteria. Further lab evaluation could be pursued if warranted based on clinical findings. 2. Consistent with th
--- NOTE | 2023-03-19 22:09 | PC.NURSE ---
Pt updated that he would be getting admitted
--- NOTE | 2023-03-19 22:10 | PC.NURSE ---
ROUNDED ON PT NOTHING NEEDED AT THIS TIME, CALL LIGHT AT BS
--- NOTE | 2023-03-19 22:11 | PC.NURSE ---
street light servicer supervisor notified for bed assignment
--- NOTE | 2023-03-19 22:12 | PC.NURSE ---
Dr. Layton at BS to update pt/visitor
--- NOTE | 2023-03-19 22:13 | PC.NURSE ---
DR. BURT AT
--- NOTE | 2023-03-19 22:15 | PC.NURSE ---
Registration notified of admission. Pt assigned to room 213 for PNA. Ary to Ary. OBS
[2023-03-19 22:37] LABS: Adenovirus,PCR Not Detected (NotDetected); Bordetella Pertussis Not Detected (NotDetected); Chlamydophila Pneumoniae, PCR Not Detected (NotDetected); Coronavirus 19, PCR Not Detected (NotDetected); Coronavirus 229E Not Detected (NotDetected); Coronavirus NL63 Not Detected (NotDetected); Coronavirus OC43 Not Detected (NotDetected); Coronovirus HKU1,PCR Not Detected (NotDetected); Human Metapneumovirus Not Detected (NotDetected); Influenza A, PCR Not Detected (NotDetected); Influenza AH1, 2009 Not Detected (NotDetected); Influenza AH1, PCR Not Detected (NotDetected); Influenza AH3,PCR Not Detected (NotDetected); Influenza B, PCR Not Detected (NotDetected); Mycoplasma Pneumoniae, PCR Not Detected (NotDetected); Parainfluenza 1, PCR Not Detected (NotDetected); Parainfluenza 2, PCR Not Detected (NotDetected); Parainfluenza 3, PCR Not Detected (NotDetected); Parainfluenza 4, PCR Not Detected (NotDetected); Respiratory Syncytial Virus Not Detected (NotDetected); Rhinovirus/Enterovirus Not Detected (NotDetected)
--- NOTE | 2023-03-19 23:36 | PC.NURSE ---
Pt arrived to floor via stretcher @ 1402
[2023-03-19 23:40] LABS: Troponin I 0.08 ng/ml (0.00-0.034)
[2023-03-20] VITALS (10 sets, daily range): BP systolic 106–165; BP diastolic 57–89; PULSE 70–91; RESP 16–18; TEMP 35.9–37.1; O2SAT 95–98; BMI 30.9
--- NOTE | 2023-03-20 01:17 | PC.NURSE ---
pt became soa during the transition from the ED to SD, on 4L NC. took to a fan to pt bedside, and a walker. daugther (EVARISTO) present during admission, stated she would like to be called if any updates occur. Assessment: pt has audible wheezes, and inspiratory and expiratory wheezes, 1+ non-pitting edema in bilateral dorsum of feet. urinal at bedside. bedalarm on. OPTED OFF CENSUS
[2023-03-20 02:47] LABS: Microscopic, Urine URINE MICROSCOPIC (MICROSCOPIC)
[2023-03-20 02:48] LABS: Appearance,Urine CLEAR (Clear); Bilirubin,Urine Negative (Negative); Blood, Urine Negative (Negative); Color,Urine DK YELLOW (Yellow); Glucose,Urine (UA) Negative (Negative); Ketones,Urine TRACE (Negative); Leukocyte Esterase,Urine Negative (Negative); Nitrate,Urine Negative (Negative); PH,Urine 5.5 (5.0-8.5); Protein,Urine 2+ (Negative); Specific Gravity, Urine >= 1.030 (1.005-1.030); Urobilinogen,Urine 0.2 EU/dl (0.2)
[2023-03-20 03:00] LABS: Bacteria,Urine Trace /lpf; RBC,Urine Occasional #/hpf (0-3); WBC,Urine Occasional #/hpf (0-3)
[2023-03-20 03:01] LABS: Hyaline Casts,Urine Occasional #/lpf (0)
[2023-03-20 05:56] LABS: Hematocrit 34.3 % (42.0-52.0); Hemoglobin 10.3 g/dL (14.1-18.0); Lymphocytes # 0.3 K/mm3 (0.7-4.5); Lymphocytes % 7.6 % (10-50); Mean Corpuscular HGB Conc 29.9 g/dL (31.8-35.4); Mean Corpuscular Hemoglobin 23.2 pg (27.0-31.2); Mean Corpuscular Volume 77.6 fl (80-94); Mean Platelet Volume 7.2 fl (7.4-10.4); Monocytes # 0.1 K/mm3 (0.1-1.0); Monocytes % 1.8 % (1.7-9.3); Neutrophils % 90.5 % (37.0-80.0); Platelet Count 372 K/mm3 (142-424); Red Blood Count 4.42 M/mm3 (4.60-6.20); Red Cell Distribution Width 16.7 % (11.5-17.5); White Blood Count 4.4 K/mm3 (4.8-10.8)
[2023-03-20 06:00] LABS: MANUAL DIFFERENTIAL MANUAL DIFFERENTIAL (MANUAL DIFF)
[2023-03-20 06:06] LABS: Anion Gap 12.2 mEq/L (5-15); Blood Urea Nitrogen 17 mg/dl (9-20); Calcium 8.5 mg/dl (8.4-10.2); Carbon Dioxide 23 mmol/L (22.0-30.0); Chloride 105 mmol/L (98-107); Creatinine Clearance Estimated 78 mL/min (50-200); Estimated Glomerular Filt Rate 80 ml/min (>60); GFR (African American) 97 ML/MIN (>60); Glucose 139 mg/dl (74-100); Potassium 4.2 mmoL/L (3.5-5.1); Sodium 136 mmol/L (136-145)
[2023-03-20 06:15] LABS: Troponin I 0.08 ng/ml (0.00-0.034)
[2023-03-20 06:33] LABS: Lymphocytes % 8 % (10-50); Neutrophils % 92 % (42-76); Platelet Estimate Normal; Total Cells Counted 100
[2023-03-20 06:34] LABS: Poikilocytosis 1+
--- NOTE | 2023-03-20 07:58 | P.CONPHA_ITS ---
Pharmacy Intervention Comments: Patient's home medications reviewed and verified with external pharmacy and patient's rn managed care. -Soto Zapata, Pharm Student
--- NOTE | 2023-03-20 07:58 | HMH.PHAINT1 ---
Pharmacy Intervention Comments: Patient's home medications reviewed and verified with external pharmacy and patient's career coordinator. -Soto Zapata, Pharm Student
--- NOTE | 2023-03-20 08:24 | EXP.HP ---
History of Present Illness *Admission Date: 03/19/23 *Reason for visit:: Dyspnea, increased oxygen requirement *History of present illness: 87-year-old male with history of CHF, history of pneumonia with sepsis and recent admission about 3 weeks ago with CHF, non-STEMI, status post heart cath and transfer to extended care facility for rehab. He did well at the [facility] for 2 weeks but then was taken home by his family, once he got home he began to develop increasing shortness of air and some increased oxygen requirement. Called [facility] about taking him back there but decided against that and waited out at home for couple of days but his dyspnea and coughing and shortness of air with activity became worse. He came to the ER last night where he was found to have marked worsening of his chest x-ray, elevated BNP levels and was admitted to hospital for further evaluation and further diagnostic testing. [facility] Disclaimer: The information contained in this section may have been updated after the patient was seen, as this information can be updated by other users. Medical History Atrial fibrillation CAD (coronary artery disease) Daytime somnolence Dyspnea Essential hypertension Hernia History of heart attack History of pacemaker Hyperlipidemia Hypertension Hypothyroid Symptomatic bradycardia Surgical History History of permanent cardiac pacemaker placement Hx of kidney removal left partial removal CA Status post coronary artery stent placement Family History Father Family history of cancer Son Family history of cancer Social History (Updated 03/19/23 @ 23:40 by Jeremias Giles RN) Smoking Status: Never smoker alcohol intake: never substance use type: denies use current occupational status: retired Travel in the last 8 weeks: None household members: spouse housing: house caffeine: Yes Review of Systems Review of Systems Review of systems:: pertinent systems reviewed and negative unless documented below Meds Home Medications and Allergies Home Medications Medication Instructions Recorded Confirmed Type levothyroxine 50 mcg tablet 50 mcg PO DAILY thyroid 10/14/20 03/19/23 History atorvastatin 40 mg tablet 40 mg PO DAILY cholesterol 11/24/20 03/19/23 History clopidogrel 75 mg tablet 75 mg PO DAILY antiplatelet/ 11/24/20 03/19/23 History Atrial Fib escitalopram oxalate 10 mg tablet 10 mg PO DAILY Mood 04/26/21 03/19/23 History rivaroxaban 20 mg tablet 20 mg PO QPMWITHMEAL Blood 06/25/21 03/19/23 History thinner/ Atrial Fib memantine 10 mg tablet 10 mg PO BID memory 07/29/22 03/19/23 History pantoprazole 40 mg tablet,delayed 40 mg PO DAILY Acid Reflux 08/16/22 03/19/23 History release (Protonix) calcium phosphate,dibasic 77 1 tab PO DAILY Supplement 02/28/23 03/19/23 History mg-vitamin D3 400 unit tablet vitamin B complex 1 cap PO DAILY Supplement 02/28/23 03/19/23 History donepezil 5 mg tablet 5 mg PO DAILY Memory 03/01/23 03/19/23 History multivitamin (Multiple Vitamins 1 tab PO DAILY Supplement 03/09/23 03/19/23 History tablet) sacubitril 49 mg-valsartan 51 mg 1 tab PO BID Heart Failure 03/19/23 03/19/23 History tablet (Entresto) trazodone 50 mg tablet 50 mg PO HS Sleep 03/19/23 03/19/23 History digoxin 125 mcg (0.125 mg) tablet 0.125 mg PO DAILY HEART RATE 03/20/23 03/20/23 History New Prescriptions to Start Prescriptions: Allergies Allergy/AdvReac Type Severity Reaction Status Date / Time No Known Allergies Allergy Verified 03/09/23 13:25 Exam Data for Last 24 hours Vital signs and Labs for Last 24 Hours: Temp Pulse Resp BP Pulse Ox O2 Del Method O2 Flow Rate 98.8 F 88 18 165/89 H 98 Nasal Cannula 2 03/20/23 08:00 03/20/23 08:00 03/20/23 08:00 03/20/23 08:00 03/20/23 08:
--- NOTE | 2023-03-20 08:31 | SW/DCPLANNER ---
Addendum entered by Ina [place] 03/22/23 08:01: Patient will discharge to [facility] level of care today. Addendum entered by [facility] 03/21/23 09:21: [facility] is able to accept this patient tomorrow pending no changes. Addendum entered by [facility] 03/21/23 08:28: Updated patient information has been faxed to [facility]. Original Note: Patient was recently at [facility] level of care and discharged home. Family had contacted [facility] prior to coming to ER to discuss re admission to [facility] after returning home. However patient did not feel well and came to ER which led to hospital admission. Family is present w/ patient this AM: patient and family are interested in returning back to [facility] to continue SNF level of care. [facility] stated that male beds are available at this time. I will fax updated information this AM. Discharge date is unknown at this time.
--- NOTE | 2023-03-20 09:27 | EXP.PULM.CON ---
History of Present Illness History of present illness: Mr. Smart is a 87-year-old male with documented history of CHF, discharged several weeks ago discharged to [facility] went home to have worsening respiratory distress and increasing oxygen appointments and presented to the ER for further evaluation. Patient admits worsening lower extremity swelling and increasing respiratory's. Denies any cough or any productive phlegm. Denies any known sick contacts. Prior smoker, CT showed emphysematous changes. [facility] Disclaimer: The information contained in this section may have been updated after the patient was seen, as this information can be updated by other users. Medical History Atrial fibrillation CAD (coronary artery disease) Daytime somnolence Dyspnea Essential hypertension Hernia History of heart attack History of pacemaker Hyperlipidemia Hypertension Hypothyroid Symptomatic bradycardia Surgical History History of permanent cardiac pacemaker placement Hx of kidney removal left partial removal CA Status post coronary artery stent placement Family History Father Family history of cancer Son Family history of cancer Social History (Updated 03/19/23 @ 23:40 by Jeremias Giles RN) Smoking Status: Never smoker alcohol intake: never substance use type: denies use current occupational status: retired Travel in the last 8 weeks: None household members: spouse housing: house caffeine: Yes Review of Systems Constitutional Constitutional: Reports anorexia, Reports body ache(s) and Reports fatigue Eyes Eyes: Denies eye discharge, Denies dry eyes, Denies irritation and Denies itchy eyes ENT Ears, Nose, Mouth, and Throat: Denies epistaxis, Denies facial pain, Denies lip swelling and Denies throat swelling *Cardiovascular Cardiovascular: Reports dyspnea, Reports dyspnea on exertion, Reports leg edema and Reports orthopnea *Respiratory Respiratory: Reports chest congestion, Reports cough, Reports dyspnea, Reports dyspnea on exertion, Denies excessive phlegm production and Reports wheezing *Gastrointestinal Gastrointestinal: Denies abdominal pain, Denies belching and Denies cramping *Musculoskeletal Musculoskeletal: Reports back pain, Reports myalgias and Reports other (No small joint swelling or Pain) Psychiatric Psychiatric: Denies homicidal ideation and Denies suicidal ideation Endocrine Endocrine: Reports fatigue and Denies heat intolerance Hematologic/Lymphatic Hematologic/Lymphatic: Denies easy bleeding and Denies lymphadenopathy Allergic/Immunologic Allergic/Immunologic: Denies itchy eyes, Denies lip swelling, Denies throat swelling and Reports wheezing Pulmonology Exam Inpatient Vital signs and Labs for Last 24 Hours: Temp Pulse Resp BP Pulse Ox O2 Del Method O2 Flow Rate 98.8 F 88 18 165/89 H 98 Nasal Cannula 2 03/20/23 08:00 03/20/23 08:28 03/20/23 08:00 03/20/23 08:00 03/20/23 08:00 03/20/23 08:00 03/20/23 08:00 FiO2 36 03/20/23 02:51 Laboratory Results - last 24 hr 03/19/23 02:39: Urine Color Dk yellow, Urine Appearance Clear, Urine pH 5.5, Ur Specific [place] >= 1.030, Urine Protein 2+, Urine Glucose (UA) Negative, Urine Ketones Trace, Urine Blood Negative, Urine Nitrate Negative, Urine Bilirubin Negative, Urine Urobilinogen 0.2, Ur Leukocyte Esterase Negative, Urine RBC Occasional, Urine WBC Occasional, Ur Squamous Epith Cells 3-5, Urine Bacteria Trace, Hyaline Casts Occasional 03/19/23 19:59: WBC 7.0, RBC 4.26 L, Hgb 9.9 L, Hct 32.7 L, MCV 76.8 L, MCH 23.3 L, MCHC 30.4 L, RDW 16.5, Plt Count 373, MPV 7.5, Neut % (Auto) 66.7, Lymph % (Auto) 21.5, [place] % (Auto) 9.9 H, Eos % (Auto) 1.8, Baso % (Auto) 0.2, Neut # (Auto) 4.7, Lymph # (Auto) 1.5, [place] # (Auto) 0.7, Eos # (Auto) 0.1, Baso # (Auto) 0.0, ESR 16, Sodium 136, Potass
--- NOTE | 2023-03-20 10:10 | EXP.CARD.CON ---
History of Present Illness History of Present Illness Consult date: 03/20/23 Requesting physician: Kelvin Mcallister Consult reason: shortness of breath Chief complaint: soa, pneumonia History of present illness: 87 year old white male with past medical hx of CAD s/p nstemi with [facility] to [facility] February 2023, HTN, HLD, mild aortic insufficiency, afib on xarelto, EF of 35-40 with PPM presented to ER yesterday with complaint of increased soa. Patient recently was in hospital for pneumonia and NSTEMi, returns with worsening soa the past 2 weeks. Upon presentation to ER labs as follow: WBC 7.0, hemoglobin 9.9, hematocrit 32.7, sodium 136, potassium 4.2, creatinine 1, troponin 0.10 trending down to 0.08, proBNP [address] CT shows a large right and moderate left pleural effusion with atelectasis versus infiltrate throughout the bilateral lower lobes and right middle lobe. Pulmonary interstitial edema was noted. EKG showed SR rate of 71 with a LBBB. Patient was admitted for diureses and treatment of pneumonia. [facility] Disclaimer: The information contained in this section may have been updated after the patient was seen, as this information can be updated by other users. Medical History Atrial fibrillation CAD (coronary artery disease) Daytime somnolence Dyspnea Essential hypertension Hernia History of heart attack History of pacemaker Hyperlipidemia Hypertension Hypothyroid Symptomatic bradycardia Surgical History History of permanent cardiac pacemaker placement Hx of kidney removal left partial removal CA Status post coronary artery stent placement Family History Father Family history of cancer Son Family history of cancer Social History (Updated 03/19/23 @ 23:40 by Jeremias Giles RN) Smoking Status: Never smoker alcohol intake: never substance use type: denies use current occupational status: retired Travel in the last 8 weeks: None household members: spouse housing: house caffeine: Yes Review of Systems Review of Systems Review of systems:: pertinent systems reviewed and negative unless documented below *Cardiovascular Cardiovascular: Denies chest pain *Respiratory Respiratory: Reports cough Exam Data for Last 24 hours Vital signs and Labs for Last 24 Hours: Temp Pulse Resp BP Pulse Ox O2 Del Method O2 Flow Rate 98.8 F 88 18 165/89 H 98 Nasal Cannula 2 03/20/23 08:00 03/20/23 08:28 03/20/23 08:00 03/20/23 08:00 03/20/23 08:00 03/20/23 09:00 03/20/23 09:00 FiO2 36 03/20/23 02:51 Laboratory Results - last 24 hr 03/19/23 02:39: Urine Color Dk yellow, Urine Appearance Clear, Urine pH 5.5, Ur Specific [place] >= 1.030, Urine Protein 2+, Urine Glucose (UA) Negative, Urine Ketones Trace, Urine Blood Negative, Urine Nitrate Negative, Urine Bilirubin Negative, Urine Urobilinogen 0.2, Ur Leukocyte Esterase Negative, Urine RBC Occasional, Urine WBC Occasional, Ur Squamous Epith Cells 3-5, Urine Bacteria Trace, Hyaline Casts Occasional 03/19/23 19:59: WBC 7.0, RBC 4.26 L, Hgb 9.9 L, Hct 32.7 L, MCV 76.8 L, MCH 23.3 L, MCHC 30.4 L, RDW 16.5, Plt Count 373, MPV 7.5, Neut % (Auto) 66.7, Lymph % (Auto) 21.5, [place] % (Auto) 9.9 H, Eos % (Auto) 1.8, Baso % (Auto) 0.2, Neut # (Auto) 4.7, Lymph # (Auto) 1.5, [place] # (Auto) 0.7, Eos # (Auto) 0.1, Baso # (Auto) 0.0, ESR 16, Sodium 136, Potassium 4.2, Chloride 103, Carbon Dioxide 27, Anion Gap 10.2, BUN 16, Creatinine 1.00, Estimated Creat Clear 71, Estimated GFR 71, Est GFR ( Amer) 86, Glucose 101 H, Calcium 8.5, Total Bilirubin 0.8, AST 45, ALT 31, Alkaline Phosphatase 103, Troponin I 0.10 H, C-Reactive Protein 0.5, NT-Pro-B Natriuret Pep 7330 H, Total Protein 6.3, Albumin 3.5, Globulin 2.8, Albumin/Globulin Ratio 1.3, Procalcitonin 0.042, Digoxin 0.80 03/19/23 20:43: Lactate 1.4
--- NOTE | 2023-03-20 10:48 | HMH.PTEV ---
Physical Therapy Evaluation Rehab PT IP Evaluation Start: 03/20/23 08:24 Freq: ONCE Status: Active Protocol: Document 03/20/23 09:25 PHOHENRRY (Rec: 03/20/23 10:48 PHORNE [id number]) Subjective/History History History 87 yowm adm to [facility] with PNA. HX of CHF, NSTEMI, CAD, pacemaker. He reports he lives with his , who is currently in poor health as well and is his primary caregiver. He reports ramp to enter the home, he uses a RW for ambulation, and needs assistance with all ADLs. Subjective Subjective Pt reports feeling SOA with exertion and tired this am. Rehab PT IP Eval Objective Appearance Patient Behavior Appropriate Patient Orientation Person,Place,Time Difficulty following instructions none Speech Pattern Clear Ambulation Patient Able to Ambulate Yes Ambulation Observation IP General Gait Pattern Observation Wide Based Gait,Shuffling Step Ambulation Distance (feet) 30 Ambulation Assistive Device Rolling Walker Ambulation Ability Minimal x 1 (25% assist) Balance Ability to Arise Able, uses arms to help Sitting Balance Steady, safe Standing Balance Steady, wide stance Dynamic Sitting Balance Ability Fair Dynamic Standing Balance Ability Fair Transfers Bed Transfer Ability Minimal x 1 (25% assist) Chair Transfer Ability Minimal x 1 (25% assist) Sit to Stand Bed Transfer Ability Minimal x 1 (25% assist) Sit to Stand Chair Transfer Ability Minimal x 1 (25% assist) ROM All Extremities PT ROM Status WFL MMT All Extremities PT MMT WFL Rehab PT IP prob,goals,plan Problems Date of Evaluation: 03/20/23 PT IP Problems Bed Mobility,Transfers,Gait Rehab Potential Rehab Potential Good Plan PT Intervention Plan Bed Mobility,Transfers,Gait, Self care,Therapeutic Exercise PT Plan Frequency Daily Duration LOS Discharge Goals Bed Transfer Ability Contact Guard/Hand Hold Sit to Stand Chair Transfer Ability Contact Guard/Hand Hold Ambulation Assistive Device Rolling Walker Ambulation Distance (feet) 40 Discharge Plan PT Discharge Plan Pt is currently most appropriate for rehab placement once medically stable for d/c. If he returns
--- NOTE | 2023-03-20 11:18 | HMH.OTEV ---
OT Inpatient Evaluation Rehab OT IP Evaluation Start: 03/20/23 08:24 Freq: ONCE Status: Active Protocol: Document 03/20/23 10:42 AZALEA (Rec: 03/20/23 11:18 AZALEA [id number]) Rehab OT IP Assessment Subjective History 87-year-old male with history of CHF, history of pneumonia with sepsis and recent admission about 3 weeks ago with CHF, non-STEMI, status post heart cath and transfer to extended care facility for rehab. He did well at the [facility] [place] for 2 weeks but then was taken home by his family, once he got home he began to develop increasing shortness of air and some increased oxygen requirement. Called [facility] about taking him back there but decided against that and waited out at home for couple of days but his dyspnea and coughing and shortness of air with activity became worse. He came to the ER last night where he was found to have marked worsening of his chest x-ray, elevated BNP levels and was admitted to hospital for further evaluation and further diagnostic testing. I need to go to the restroom. Patient lives with in 1 story home with ramp to enter. Patient is currently a resident at [facility] [place]. Patient uses rollator to ambulate within home. Patient requires assistance for bathing, toileting and drsg. Subjective Instructed Patient on proper hand and foot placement to completed bed mobility from supine->sit @ EOB requiring Min A. Patient demonstrated good dynamic sitting balance at EOB. Patient stated, I
--- NOTE | 2023-03-20 11:27 | PC.NURSE ---
courtesy tech note: pt is up to chair resting no requests voiced at this time. call light is within reach.
--- NOTE | 2023-03-20 17:56 | PC.NURSE ---
A&OX4. PT IS TOLERATING RA WELL AT THIS TIME, O2 SAT IN HIGH 90S. AMBULATING IN ROOM WITH STANDBY ASSIST. BED ALARM ON WHEN FAMILY IS NOT IN ROOM. FAMILY HAS BEEN AT BEDSIDE MAJORITY OF THIS SHIFT. PT HAS HAD NO C/O OR NEEDS, GREAT APPETITE. VSS.
[2023-03-21] VITALS (11 sets, daily range): BP systolic 136–152; BP diastolic 61–69; PULSE 60–109; RESP 16–18; TEMP 36.5–36.7; O2SAT 92–95; BMI 30.8; BMI 30.7
--- NOTE | 2023-03-21 07:47 | EXP.ACUTE.PN ---
Subjective *Date: 03/21/23 *Time: 07:47 Interval history: Patient reports that he was little short of breath earlier this morning but a breathing treatment helped him fairly nicely. Has been weaned down to 1 or 2 L on O2 and had approximately 2 L of output yesterday. He feels like his breathing is overall somewhat better. Family has noticed an intermittent right foot tremor and patient notes that occasionally his right hand shakes. 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 Medical Exam Vital signs and Labs for Last 24 Hours: Vital Signs Temp Pulse Pulse Resp BP Pulse Ox O2 Del Method 03/21/23 07:24 98.0 F 109 H 18 150/66 H 94 L Nasal Cannula 03/21/23 06:34 Nasal Cannula 03/21/23 06:17 75 03/21/23 06:17 76 03/21/23 06:17 92 L Room Air 03/21/23 04:00 70 03/21/23 05:00 Nasal Cannula 03/21/23 04:00 97.8 F 69 18 138/69 94 L Room Air 03/21/23 03:00 Room Air, Nasal Cannula 03/21/23 00:00 97.7 F 79 18 152/66 H 95 Room Air 03/21/23 00:00 60 03/20/23 22:15 Room Air, Nasal Cannula 03/20/23 21:00 Room Air, Nasal Cannula 03/20/23 20:00 97.7 F 80 18 150/58 H 96 Room Air 03/20/23 20:00 90 03/20/23 19:55 Nasal Cannula 03/20/23 18:40 Room Air 03/20/23 18:47 90 03/20/23 18:47 76 03/20/23 16:00 70 03/20/23 16:50 Room Air 03/20/23 16:00 97.7 F 70 18 147/57 H 95 Room Air 03/20/23 14:34 Room Air 03/20/23 12:00 80 03/20/23 08:00 80 03/20/23 12:47 Nasal Cannula 03/20/23 12:00 96.7 F L 83 18 165/68 H 96 Room Air 03/20/23 11:00 Nasal Cannula 03/20/23 09:00 Nasal Cannula 03/20/23 08:00 Nasal Cannula 03/20/23 08:28 88 03/20/23 08:00 98.8 F 88 18 165/89 H 98 Nasal Cannula O2 Flow Rate 03/21/23 07:24 1 03/21/23 06:34 03/21/23 06:17 03/21/23 06:17 03/21/23 06:17 03/21/23 04:00 03/21/23 05:00 03/21/23 04:00 03/21/23 03:00 03/21/23 00:00 03/21/23 00:00 03/20/23 22:15 03/20/23 21:00 03/20/23 20:00 03/20/23 20:00 03/20/23 19:55 03/20/23 18:40 03/20/23 18:47 03/20/23 18:47 03/20/23 16:00 03/20/23 16:50 03/20/23 16:00 03/20/23 14:34 03/20/23 12:00 03/20/23 08:00 03/20/23 12:47 2 03/20/23 12:00 03/20/23 11:00 2 03/20/23 09:00 2 03/20/23 08:00 2 03/20/23 08:28 03/20/23 08:00 2 Intake and Output 03/20/23 03/21/23 03/21/23 19:59 03:59 11:59 Intake Total 600 / 1309 709 / 1309 Output Total 450 / 1900 850 / 1900 600 / 1900 Balance 150 / -591 -850 / -591 109 / -591 Intake: Intake, Oral Amount 600 / 840 240 / 840 Intake, Total IV Amount 469 / 469 0.9 % Sodium Chloride 1000ML 1, 469 / 469 000 ml @ 50 mls/hr IV .Q20H [facility] Rx#:[id number] Output: Output, Urine Amount 450 / 1900 850 / 1900 600 / 1900 Other: Number of Unmeasured Voids 1 Weight 232 lb 7 oz Patient Weight 03/21/23 11:59 Weight 232 lb 7 oz I & O for Labs for Last 24 Hours: Intake & Output 03/18/23 03/19/23 03/20/23 03/21/23 11:59 11:59 11:59 11:59 Intake Total 496 / 496 1309 / 1309 Output Total 500 / 500 1900 / 1900 Balance -4 / -4 -591 / -591 Weight 233 lb 8 oz 232 lb 7 oz Comment:: Patient is alert, oriented x2. Pleasant. Talkative. Heart rate regular. Abdomen soft, no edema. Globally weak. Does have rhonchi in the left lower aspect of his lung vega. Good air movement, no wheezing. Diminished air movement in the right middle and lower lung field. Improved over yesterday Assessment and Plan *Assessment and plan (1) Respiratory failure with hypoxia: Status: Acute Category: Medical Code(s): J96.91 - Respiratory failure, unspecified with hypoxia (2) HFrEF (heart failure with reduced ejection fraction): Status: Acute Category:
[2023-03-21 08:08] LABS: Eosinophils % 0.3 % (0.1-12.0); Hematocrit 33.6 % (42.0-52.0); Lymphocytes % 8.4 % (10-50); Mean Corpuscular HGB Conc 29.9 g/dL (31.8-35.4); Mean Corpuscular Hemoglobin 23.2 pg (27.0-31.2); Mean Corpuscular Volume 77.6 fl (80-94); Mean Platelet Volume 7.8 fl (7.4-10.4); Monocytes # 0.9 K/mm3 (0.1-1.0); Monocytes % 7.7 % (1.7-9.3); Neutrophils # 9.5 K/mm3 (1.8-7.8); Neutrophils % 83.6 % (37.0-80.0); Platelet Count 387 K/mm3 (142-424); Red Blood Count 4.33 M/mm3 (4.60-6.20); Red Cell Distribution Width 16.7 % (11.5-17.5); White Blood Count 11.4 K/mm3 (4.8-10.8)
[2023-03-21 08:17] LABS: Blood Urea Nitrogen 22 mg/dl (9-20); Calcium 8.7 mg/dl (8.4-10.2); Carbon Dioxide 26 mmol/L (22.0-30.0); Creatinine Clearance Estimated 71 mL/min (50-200); Estimated Glomerular Filt Rate 63 ml/min (>60); GFR (African American) 77 ML/MIN (>60); Glucose 125 mg/dl (74-100)
[2023-03-21 08:31] LABS: Anion Gap 11.1 mEq/L (5-15); Chloride 102 mmol/L (98-107); Potassium 4.1 mmoL/L (3.5-5.1); Sodium 135 mmol/L (136-145)
--- NOTE | 2023-03-21 08:51 | EXP.PULM.PN ---
Subjective *Date: 03/21/23 *Time: 09:37 Interval history: Patient admits worsening respiratory status overnight, initiated on 1 L nasal cannula. Pulmonology Exam Inpatient Vital signs and Labs for Last 24 Hours: Temp Pulse Resp BP Pulse Ox O2 Del Method O2 Flow Rate 98.0 F 65 18 150/66 H 94 L Nasal Cannula 1 03/21/23 07:24 03/21/23 08:36 03/21/23 07:24 03/21/23 07:24 03/21/23 07:24 03/21/23 07:24 03/21/23 07:24 FiO2 36 03/20/23 02:51 Laboratory Results - last 24 hr 03/21/23 07:58: WBC 11.4 H D, RBC 4.33 L, Hgb 10.0 L, Hct 33.6 L, MCV 77.6 L, MCH 23.2 L, MCHC 29.9 L, RDW 16.7, Plt Count 387, MPV 7.8, Neut % (Auto) 83.6 H, Lymph % (Auto) 8.4 L, [place] % (Auto) 7.7, Eos % (Auto) 0.3, Baso % (Auto) 0.0 L, Neut # (Auto) 9.5 H, Lymph # (Auto) 1.0, [place] # (Auto) 0.9, Eos # (Auto) 0.0, Baso # (Auto) 0.0, Sodium 135 L, Potassium 4.1, Chloride 102, Carbon Dioxide 26, Anion Gap 11.1, BUN 22 H D, Creatinine 1.10 D, Estimated Creat Clear 71, Estimated GFR 63, Est GFR ( Amer) 77 D, Glucose 125 H, Calcium 8.7 I & O for Labs for Last 24 Hours: Intake & Output 03/18/23 03/19/23 03/20/23 03/21/23 23:59 23:59 23:59 23:59 Intake Total 1096 / 1096 709 / 709 Output Total 1525 / 1800 875 / 875 Balance -429 / -704 -166 / -166 Weight 213 lb 233 lb 8 oz 232 lb 7 oz Constitutional: Present mild distress Head: Present normocephalic and atraumatic ENT: Present normal exam, normal oropharynx and mucous membranes moist Neck: Present normal inspection and full ROM Respiratory: Present crackles, diminished air movement and able to speak in complete sentences; Absent prolonged expiratory phase, respiratory distress or wheezes Comment:: Decreased breath sounds right lower lung field Cardiac: Present Tachycardia and radial pulses present; Absent S1/S2 GI: Present soft and distention; Absent tenderness or guarding Skin: Present intact; Absent cyanosis or jaundice Neuro: Present alert, awake and oriented x 3 Extremities: Present normal inspection; Absent clubbing or cyanosis Psychiatric: Present normal affect and cooperative Assessment and Plan *Assessment and plan (1) Pleural effusion: Status: Acute Category: Medical Code(s): J90 - Pleural effusion, not elsewhere classified (2) CAP (community acquired pneumonia): Status: Acute Qualifiers: Laterality: right Lung location: lower lobe of lung Qualified Code(s): J18.9 - Pneumonia, unspecified organism Category: Medical Code(s): J18.9 - Pneumonia, unspecified organism (3) HFrEF (heart failure with reduced ejection fraction): Status: Acute Category: Medical Code(s): I50.20 - Unspecified systolic (congestive) heart failure (4) Respiratory failure with hypoxia: Status: Acute Qualifiers: Chronicity: acute on chronic Qualified Code(s): J96.21 - Acute and chronic respiratory failure with hypoxia Category: Medical Code(s): J96.91 - Respiratory failure, unspecified with hypoxia Plan Mr. Smart is a 87-year-old male with documented history of CHF, discharged several weeks ago discharged to [facility] went home to have worsening respiratory distress and increasing oxygen appointments and presented to the ER for further evaluation. Patient admits worsening lower extremity swelling and increasing respiratory's. Denies any cough or any productive phlegm. Denies any known sick contacts. Prior smoker, CT showed emphysematous changes. HRCT upon his admission bilateral pleural effusions right greater than left. Adjacent atelectasis noted. No dense consolidation noted. Emphysema noted. The noted effusion left significantly worse from his most recent hospital discharge. Patient points admission was initiated ceftriaxone azithromycin. He continued to receive Xarelto for his atrial fibrillation. No evidence of leukocytosis upon admission, mild leukopenia with neutrophil predominant. Afeb
--- NOTE | 2023-03-21 09:01 | EXP.CARD.PN ---
Subjective Subjective Date: 03/21/23 Time: 08:30 Principal diagnosis: Pneumonia/acute exacerbation of heart failure Interval history: Patient reports he experienced a little bit of shortness of breath earlier this morning that was resolved with breathing treatment. Oxygen needs have been weaned down. Patient had 2 L of urine output noted yesterday and feels like overall his breathing is better. Morning labs reviewed. Exam Data for Last 24 hours Vital signs and Labs for Last 24 Hours: Temp Pulse Resp BP Pulse Ox O2 Del Method O2 Flow Rate 98.0 F 65 18 150/66 H 94 L Nasal Cannula 1 03/21/23 07:24 03/21/23 08:36 03/21/23 07:24 03/21/23 07:24 03/21/23 07:24 03/21/23 07:24 03/21/23 07:24 FiO2 36 03/20/23 02:51 Laboratory Results - last 24 hr 03/21/23 07:58: WBC 11.4 H D, RBC 4.33 L, Hgb 10.0 L, Hct 33.6 L, MCV 77.6 L, MCH 23.2 L, MCHC 29.9 L, RDW 16.7, Plt Count 387, MPV 7.8, Neut % (Auto) 83.6 H, Lymph % (Auto) 8.4 L, [place] % (Auto) 7.7, Eos % (Auto) 0.3, Baso % (Auto) 0.0 L, Neut # (Auto) 9.5 H, Lymph # (Auto) 1.0, [place] # (Auto) 0.9, Eos # (Auto) 0.0, Baso # (Auto) 0.0, Sodium 135 L, Potassium 4.1, Chloride 102, Carbon Dioxide 26, Anion Gap 11.1, BUN 22 H D, Creatinine 1.10 D, Estimated Creat Clear 71, Estimated GFR 63, Est GFR ( Amer) 77 D, Glucose 125 H, Calcium 8.7 I & O for Last 24 hours: Intake & Output 03/18/23 03/19/23 03/20/23 03/21/23 23:59 23:59 23:59 23:59 Intake Total 1096 / 1096 709 / 709 Output Total 1525 / 1800 875 / 875 Balance -429 / -704 -166 / -166 Weight 213 lb 233 lb 8 oz 232 lb 7 oz Constitutional Constitutional: no acute distress *Routine Respiratory Exam Respiratory: Present CTA bilaterally and symmetric chest movement *Routine Cardiovascular Exam Cardiovascular: Present RRR, Normal S1 and Normal S2 *Routine Abdominal Exam Abdominal: Present soft and normoactive bowel sounds; Absent tenderness *Routine Extremities Exam Extremities: Present full ROM and normal capillary refill; Absent edema *Routine Skin Exam Skin: Present intact, dry and warm Detailed Neck Exam: Thyroids Thyroid: Absent bruit Progress Note: A&P Assessment and plan (1) Pleural effusion: Status: Acute (2) CAP (community acquired pneumonia): Status: Acute (3) HFrEF (heart failure with reduced ejection fraction): Status: Acute (4) Respiratory failure with hypoxia: Status: Acute Assessment and Plan Assessment and Plan for All Diagnoses:: CAD -February 2023-Stenting to LAD with chronically occluded RCA -Continue DAPT therapy with aspirin and Plavix, atorvastatin 40 mg p.o. consider addition of beta-asael after fully diuresed HFrEF NYHA II-III Ischemic cardiomyapthy Diastolic dysfunction grade 2 -Echo from 03/06/2023 shows an estimated ejection fraction of 35 to 40%, repeat limited echo today shows ejection fraction of 35 to 40% on preliminary report, official echo report is pending -Patient has pacemaker, consider upgrade to AICD based on echo after 90 days post stent (after jun 06) -Continue Entresto 24/26 mg p.o. twice daily. Add Aldactone 25 mg p.o. daily, Jardiance 10 mg p.o. daily. Start Bumex 1 mg IV daily for diuresis 03/21/2023: Patient diuresed 2 L yesterday and respiratory status continues to improve. We will transition patient to Bumex 1 mg p.o. daily for continued diuresis. A-fib [id number] 6 -Continue digoxin for rate control -Patient maintained on Xarelto at home, Will need to hold prior to thoracentesis. CV summary 03/20/2023: CV stable, patient diuresed 2 L. Will transition to oral diuretics today. Patient is cardiovascular stable for discharge. Please continue below listed medication and have patient follow-up in cardiology clinic in 1 to 2 weeks for reevaluation. Please contact service for any additional concerns. Cardiac meds Aspirin 81 mg p.o. daily Plavix 75 mg p.o. daily Atorvastatin 40 mg p.o. daily Entresto 24/26 mg p.o. twice daily Al
--- NOTE | 2023-03-21 11:49 | PC.NURSE ---
Courtesy Round Patient awake up and in chair for lunch. Emptied urinal and trash . Changed bed linens and checked bed linens for missing dentures . Dentures not found . patient voiced no other needs at this time . Call light within reach .
[2023-03-22] VITALS (8 sets, daily range): BP systolic 138–145; BP diastolic 66–68; PULSE 64–70; RESP 16–18; TEMP 36.7–36.8; O2SAT 96–98; BMI 30.6
[2023-03-22 05:59] LABS: Basophils % 0.1 % (0.1-2.0); Eosinophils # 0.2 K/mm3 (0.0-0.4); Eosinophils % 2.9 % (0.1-12.0); Hematocrit 32.3 % (42.0-52.0); Hemoglobin 9.7 g/dL (14.1-18.0); Lymphocytes # 1.2 K/mm3 (0.7-4.5); Lymphocytes % 15.2 % (10-50); Mean Corpuscular Hemoglobin 23.1 pg (27.0-31.2); Mean Platelet Volume 7.8 fl (7.4-10.4); Monocytes # 0.9 K/mm3 (0.1-1.0); Monocytes % 11.6 % (1.7-9.3); Neutrophils # 5.5 K/mm3 (1.8-7.8); Neutrophils % 70.1 % (37.0-80.0); Platelet Count 345 K/mm3 (142-424); Red Blood Count 4.19 M/mm3 (4.60-6.20); Red Cell Distribution Width 16.6 % (11.5-17.5); White Blood Count 7.9 K/mm3 (4.8-10.8)
[2023-03-22 06:05] LABS: Chloride 102 mmol/L (98-107); Potassium 3.8 mmoL/L (3.5-5.1); Sodium 135 mmol/L (136-145)
[2023-03-22 06:08] LABS: Anion Gap 8.8 mEq/L (5-15); Blood Urea Nitrogen 20 mg/dl (9-20); Carbon Dioxide 28 mmol/L (22.0-30.0); Creatinine Clearance Estimated 70 mL/min (50-200); Estimated Glomerular Filt Rate 63 ml/min (>60); GFR (African American) 77 ML/MIN (>60)
[2023-03-22 06:14] LABS: Glucose 80 mg/dl (74-100)
[2023-03-22 06:15] LABS: Calcium 8.2 mg/dl (8.4-10.2)
--- NOTE | 2023-03-22 06:30 | XR_ITS ---
PROCEDURE INFORMATION: Exam: XR Chest Exam date and time: 03/22/2023 5:19 AM Age: 87 years old Clinical indication: Condition or disease; Other: Effusion; Prior surgery; Surgery date: 6+ months; Surgery type: Pacemaker; Additional info: F/u effusion TECHNIQUE: Imaging protocol: Radiologic exam of the chest. Views: 2 views. COMPARISON: CT HIGH RESOLUTION CHEST 03/19/2023 10:27 PM FINDINGS: Tubes, catheters and devices: A permanent pacemaker overlies and obscures the left upper chest with atrial and ventricular wire leads. Lungs: Bibasilar opacities likely represent effusion and/or parenchymal disease right greater than left. Patchy airspace disease is noted at the lung bases. Pleural spaces: Unremarkable. No pleural effusion. No pneumothorax. Heart/Mediastinum: Unremarkable. No cardiomegaly. Bones/joints: Degenerative changes are noted in the bones. IMPRESSION: Bibasilar opacities right worse than left, likely representing effusion and/or parenchymal disease.
--- NOTE | 2023-03-22 07:44 | EXP.DC.SUM ---
General Admission date:: 03/19/23 Discharge date: 03/22/23 HPI HPI HPI: 87-year-old male with history of CHF, history of pneumonia with sepsis and recent admission about 3 weeks ago with CHF, non-STEMI, status post heart cath and transfer to extended care facility for rehab. He did well at the [facility] facility for 2 weeks but then was taken home by his family, once he got home he began to develop increasing shortness of air and some increased oxygen requirement. Called [facility] about taking him back there but decided against that and waited out at home for couple of days but his dyspnea and coughing and shortness of air with activity became worse. He came to the ER last night where he was found to have marked worsening of his chest x-ray, elevated BNP levels and was admitted to hospital for further evaluation and further diagnostic testing. Hospital Course Hospital Course Hospital Course: Patient was admitted, cultures of sputum and blood and PCR testing were negative. He was placed on antibiotics prophylactically for possible pneumonitis. Effusions were noted, pulmonary consultation was obtained, recommended diuresis. This was done and he improved very nicely. Appreciate cardiology consultation for diuretic recommendations. This morning he has diuresed about 4 L and feels much better. He is back down to 2 L nasal cannula. He will be discharged back to [facility] with the below noted cardiac medications, follow-up with cardiology clinic in 2 weeks and with us on routine rounds. Does not need antibiotics given lack of evidence of infection. Exam Data for Last 24 hours Vital signs and Labs for Last 24 Hours: Temp Pulse Resp BP Pulse Ox O2 Del Method O2 Flow Rate 98.1 F 70 16 138/66 97 Nasal Cannula 2 03/22/23 03:59 03/22/23 04:00 03/22/23 03:59 03/22/23 03:59 03/22/23 05:58 03/22/23 06:53 03/22/23 05:58 FiO2 36 03/20/23 02:51 Laboratory Results - last 24 hr 03/21/23 07:58: WBC 11.4 H D, RBC 4.33 L, Hgb 10.0 L, Hct 33.6 L, MCV 77.6 L, MCH 23.2 L, MCHC 29.9 L, RDW 16.7, Plt Count 387, MPV 7.8, Neut % (Auto) 83.6 H, Lymph % (Auto) 8.4 L, [place] % (Auto) 7.7, Eos % (Auto) 0.3, Baso % (Auto) 0.0 L, Neut # (Auto) 9.5 H, Lymph # (Auto) 1.0, [place] # (Auto) 0.9, Eos # (Auto) 0.0, Baso # (Auto) 0.0, Sodium 135 L, Potassium 4.1, Chloride 102, Carbon Dioxide 26, Anion Gap 11.1, BUN 22 H D, Creatinine 1.10 D, Estimated Creat Clear 71, Estimated GFR 63, Est GFR ( Amer) 77 D, Glucose 125 H, Calcium 8.7 03/22/23 05:47: WBC 7.9 D, RBC 4.19 L, Hgb 9.7 L, Hct 32.3 L, MCV 77.0 L, MCH 23.1 L, MCHC 30.0 L, RDW 16.6, Plt Count 345, MPV 7.8, Neut % (Auto) 70.1, Lymph % (Auto) 15.2, [place] % (Auto) 11.6 H, Eos % (Auto) 2.9, Baso % (Auto) 0.1, Neut # (Auto) 5.5, Lymph # (Auto) 1.2, [place] # (Auto) 0.9, Eos # (Auto) 0.2, Baso # (Auto) 0.0, Sodium 135 L, Potassium 3.8, Chloride 102, Carbon Dioxide 28, Anion Gap 8.8, BUN 20, Creatinine 1.10, Estimated Creat Clear 70, Estimated GFR 63, Est GFR ( Amer) 77, Glucose 80 D, Calcium 8.2 L I & O for Last 24 hours: Intake & Output 03/19/23 03/20/23 03/21/23 03/22/23 11:59 11:59 11:59 11:59 Intake Total 496 / 496 1599 / 1599 240 / 240 Output Total 500 / 500 3200 / 3200 1950 / 1950 Balance -4 / -4 -1601 / -1601 -1710 / -1710 Weight 233 lb 8 oz 232 lb 7 oz 231 lb Microbiology Reports for the Last 24 Hours: Microbiology 03/19/23 20:42 Blood Blood Culture - Preliminary NO GROWTH AFTER 48 HOURS 03/19/23 20:30 Blood Blood Culture - Preliminary NO GROWTH AFTER 48 HOURS Constitutional Constitutional: no acute distress *Routine Respiratory Exam Respiratory: Present rhonchi and symmetric chest movement Comments: Vastly improved on exam today with less rhonchi in right chest *Routine Cardiovascular Exam Cardiovascular: Present RRR, Normal S1 and Normal S2 *Routine Abdominal Exam Abdominal: Present soft a
--- NOTE | 2023-03-22 09:05 | EXP.PULM.PN ---
Subjective *Date: 03/22/23 *Time: 09:50 Interval history: No acute respiratory vents overnight. Patient admits continued improvement in his respiratory symptoms. Pulmonology Exam Inpatient Vital signs and Labs for Last 24 Hours: Temp Pulse Resp BP Pulse Ox O2 Del Method O2 Flow Rate 98.3 F 70 18 145/67 H 98 Nasal Cannula 1 03/22/23 07:44 03/22/23 07:44 03/22/23 07:44 03/22/23 07:44 03/22/23 07:44 03/22/23 07:44 03/22/23 07:44 FiO2 36 03/20/23 02:51 Laboratory Results - last 24 hr 03/22/23 05:47: WBC 7.9 D, RBC 4.19 L, Hgb 9.7 L, Hct 32.3 L, MCV 77.0 L, MCH 23.1 L, MCHC 30.0 L, RDW 16.6, Plt Count 345, MPV 7.8, Neut % (Auto) 70.1, Lymph % (Auto) 15.2, [place] % (Auto) 11.6 H, Eos % (Auto) 2.9, Baso % (Auto) 0.1, Neut # (Auto) 5.5, Lymph # (Auto) 1.2, [place] # (Auto) 0.9, Eos # (Auto) 0.2, Baso # (Auto) 0.0, Sodium 135 L, Potassium 3.8, Chloride 102, Carbon Dioxide 28, Anion Gap 8.8, BUN 20, Creatinine 1.10, Estimated Creat Clear 70, Estimated GFR 63, Est GFR ( Amer) 77, Glucose 80 D, Calcium 8.2 L I & O for Labs for Last 24 Hours: Intake & Output 03/19/23 03/20/23 03/21/23 03/22/23 23:59 23:59 23:59 23:59 Intake Total 1096 / 1096 1239 / 1239 240 / 240 Output Total 1525 / 1800 2875 / 2875 1600 / 1600 Balance -429 / -704 -1636 / -1636 -1360 / -1360 Weight 213 lb 233 lb 8 oz 231 lb 7.766 oz 231 lb Microbiology Reports for the Last 24 Hours: Microbiology 03/19/23 20:42 Blood Blood Culture - Preliminary NO GROWTH AFTER 48 HOURS 03/19/23 20:30 Blood Blood Culture - Preliminary NO GROWTH AFTER 48 HOURS Constitutional: Present mild distress Head: Present normocephalic and atraumatic ENT: Present normal exam, normal oropharynx and mucous membranes moist Neck: Present normal inspection and full ROM Respiratory: Present crackles, diminished air movement and able to speak in complete sentences; Absent prolonged expiratory phase, respiratory distress or wheezes Comment:: Decreased breath sounds right lower lung field Cardiac: Present Tachycardia and radial pulses present; Absent S1/S2 GI: Present soft and distention; Absent tenderness or guarding Skin: Present intact; Absent cyanosis or jaundice Neuro: Present alert, awake and oriented x 3 Extremities: Present normal inspection; Absent clubbing or cyanosis Psychiatric: Present normal affect and cooperative Assessment and Plan *Assessment and plan (1) Pleural effusion: Status: Acute Category: Medical Code(s): J90 - Pleural effusion, not elsewhere classified (2) CAP (community acquired pneumonia): Status: Acute Qualifiers: Laterality: right Lung location: lower lobe of lung Qualified Code(s): J18.9 - Pneumonia, unspecified organism Category: Medical Code(s): J18.9 - Pneumonia, unspecified organism (3) HFrEF (heart failure with reduced ejection fraction): Status: Acute Category: Medical Code(s): I50.20 - Unspecified systolic (congestive) heart failure (4) Respiratory failure with hypoxia: Status: Acute Qualifiers: Chronicity: acute on chronic Qualified Code(s): J96.21 - Acute and chronic respiratory failure with hypoxia Category: Medical Code(s): J96.91 - Respiratory failure, unspecified with hypoxia Plan Mr. Smart is a 87-year-old male with documented history of CHF, discharged several weeks ago discharged to [place] went home to have worsening respiratory distress and increasing oxygen appointments and presented to the ER for further evaluation. Patient admits worsening lower extremity swelling and increasing respiratory's. Denies any cough or any productive phlegm. Denies any known sick contacts. Prior smoker, CT showed emphysematous changes. HRCT upon his admission bilateral pleural effusions right greater than left. Adjacent atelectasis noted. No dense consolidation n
--- NOTE | 2023-03-23 13:24 | CARE MANAGER ---
Contacted [facility] who states patient is doing well and they have everything they need. LILIYA Cruz
== END 2023-03-22 11:16 | DRG 291 ==
LOC: ER 22:01 → 2ND 22:15
PROVIDERS: Admitting Provider Internal Medicine Adolescent Medicine; Emergency Provider Emergency Medicine; PCP Internal Medicine Adolescent Medicine; Visit Provider Internal Medicine Adolescent Medicine
DX: I11.0 Hypertensive heart disease with heart failure (principal); I50.23 Acute on chronic systolic (congestive) heart failure; J18.9 Pneumonia, unspecified organism; J96.21 Acute and chronic respiratory failure with hypoxia; I48.20 Chronic atrial fibrillation, unspecified; I25.10 Atherosclerotic heart disease of native coronary artery without angina pectoris; J44.9 Chronic obstructive pulmonary disease, unspecified; E03.9 Hypothyroidism, unspecified; I25.2 Old myocardial infarction; Z95.0 Presence of cardiac pacemaker; Z95.5 Presence of coronary angioplasty implant and graft; I25.5 Ischemic cardiomyopathy; G31.84 Mild cognitive impairment of uncertain or unknown etiology; I35.1 Nonrheumatic aortic (valve) insufficiency; Z99.81 Dependence on supplemental oxygen
CPT/HCPCS: 36415; 71045; 71046; 71250; 80048; 80053; 80162; 81001; 83605; 83735; 83880; 84145; 84484; 85007; 85025; 85651; 86140; 87040; 87581; 87632; 87636; 87798; 93005; 93308; 94640; 94760; 97116; 97163; 97165; 97530; 99285; J0456; J0696; J1956

== ENCOUNTER → 2023-04-05 14:01 | Outpatient (CLI) | payer BC, SELFPAY ==
[2023-04-05 14:18] LABS: Basophils % 0.6 % (0.1-2.0); Eosinophils # 0.3 K/mm3 (0.0-0.4); Eosinophils % 4.3 % (0.1-12.0); Hematocrit 33.5 % (42.0-52.0); Lymphocytes # 1.6 K/mm3 (0.7-4.5); Mean Corpuscular HGB Conc 29.9 g/dL (31.8-35.4); Mean Corpuscular Hemoglobin 22.7 pg (27.0-31.2); Mean Corpuscular Volume 75.9 fl (80-94); Mean Platelet Volume 7.8 fl (7.4-10.4); Monocytes # 0.7 K/mm3 (0.1-1.0); Monocytes % 11.1 % (1.7-9.3); Neutrophils # 3.8 K/mm3 (1.8-7.8); Platelet Count 354 K/mm3 (142-424); Red Blood Count 4.42 M/mm3 (4.60-6.20); Red Cell Distribution Width 16.3 % (11.5-17.5); White Blood Count 6.4 K/mm3 (4.8-10.8)
[2023-04-05 14:57] LABS: Anion Gap 11.3 mEq/L (5-15); Blood Urea Nitrogen 24 mg/dl (9-20); Calcium 8.8 mg/dl (8.4-10.2); Carbon Dioxide 30 mmol/L (22.0-30.0); Chloride 104 mmol/L (98-107); Estimated Glomerular Filt Rate 57 ml/min (>60); GFR (African American) 69 ML/MIN (>60); Glucose 86 mg/dl (74-100); Potassium 4.3 mmoL/L (3.5-5.1); Sodium 141 mmol/L (136-145)
== END ==
PROVIDERS: PCP Internal Medicine Adolescent Medicine; Visit Provider Nurse Practitioner
DX: I25.10 Atherosclerotic heart disease of native coronary artery without angina pectoris (principal); I48.91 Unspecified atrial fibrillation; I11.0 Hypertensive heart disease with heart failure; I50.20 Unspecified systolic (congestive) heart failure; I50.22 Chronic systolic (congestive) heart failure; I63.9 Cerebral infarction, unspecified
CPT/HCPCS: 36415; 80048; 85025

== ENCOUNTER → 2023-06-05 15:21 | Outpatient (CLI) | payer BC, SELFPAY ==
[2023-06-05 15:34] LABS: MANUAL DIFFERENTIAL MANUAL DIFFERENTIAL (MANUAL DIFF)
[2023-06-05 15:43] LABS: Basophils % 0.3 % (0.1-2.0); Eosinophils # 0.2 K/mm3 (0.0-0.4); Eosinophils % 2.1 % (0.1-12.0); Hematocrit 32.5 % (42.0-52.0); Hemoglobin 9.6 g/dL (14.1-18.0); Lymphocytes # 1.7 K/mm3 (0.7-4.5); Lymphocytes % 24.1 % (10-50); Mean Corpuscular HGB Conc 29.6 g/dL (31.8-35.4); Mean Corpuscular Hemoglobin 21.4 pg (27.0-31.2); Mean Corpuscular Volume 72.4 fl (80-94); Mean Platelet Volume 7.2 fl (7.4-10.4); Monocytes # 0.8 K/mm3 (0.1-1.0); Monocytes % 11.5 % (1.7-9.3); Neutrophils # 4.4 K/mm3 (1.8-7.8); Neutrophils % 61.9 % (37.0-80.0); Platelet Count 376 K/mm3 (142-424); Red Cell Distribution Width 16.8 % (11.5-17.5); White Blood Count 7.1 K/mm3 (4.8-10.8)
[2023-06-05 15:49] LABS: Chloride 106 mmol/L (98-107); Sodium 143 mmol/L (136-145)
[2023-06-05 15:50] LABS: Potassium 4.6 mmoL/L (3.5-5.1)
[2023-06-05 15:52] LABS: Alanine Aminotransferase 17 U/L (12-78); Alkaline Phosphatase 92 U/L (38-126); Aspartate Amino Transferase 28 U/L (17-59); Bilirubin,Total 0.2 mg/dl (0.2-1.3); Blood Urea Nitrogen 30 mg/dl (9-20); Estimated Glomerular Filt Rate 41 ml/min (>60); GFR (African American) 50 ML/MIN (>60)
[2023-06-05 15:53] LABS: Albumin Level 3.9 g/dl (3.5-5.0); Albumin/Globulin Ratio 1.4 (1.1-1.8); Anion Gap 13.6 mEq/L (5-15); Calcium 8.8 mg/dl (8.4-10.2); Carbon Dioxide 28 mmol/L (22.0-30.0); Globulin 2.7 g/dL (1.3-3.2); Glucose 85 mg/dl (74-100); Total Protein,Serum 6.6 g/dl (6.3-8.2)
[2023-06-05 16:17] LABS: Eosinophils % 2 % (0-3); Hypochromasia 2+; Lymphocytes % 26 % (10-50); Monocytes % 5 % (2-9); Neutrophils % 67 % (42-76); Platelet Estimate Normal; Total Cells Counted 100
[2023-06-05 16:18] LABS: Burr Cells 1+
== END ==
PROVIDERS: PCP Internal Medicine Adolescent Medicine; Visit Provider Internal Medicine Adolescent Medicine
DX: R06.09 Other forms of dyspnea (principal); I50.20 Unspecified systolic (congestive) heart failure; J90 Pleural effusion, not elsewhere classified
CPT/HCPCS: 80053; 85007; 85014; 85018; 85048; 85049

== ENCOUNTER → 2023-06-06 11:41 | Outpatient (CLI) | payer BC, SELFPAY ==
--- NOTE | 2023-06-06 11:52 | CA_ITS ---
APPROVED REPORT EXAM: Limited 2D Echocardiogram Stablehand: Marilou Souza RVT Ht: 6 ft 1 in Wt: 222lbs BSA: 2.25 BP: 103/34 mmHg Indications: EF CHECK TO SEE IF PACER NEEDS CHANGED TO AICD,EF OF 35-40% ON 03/20/23,A-FIB,CAD,BRADYCARDIA,CM,CHF,SMOKER,HTN,HLD 2D Dimensions LVOT 2.99 cm (M/F) 1.5-2.5 M-Mode Dimensions RVDd 3.33 cm (0.9-2.6) LA Diam 4.56 cm (1.9-4.0) LVDd 5.25 cm (3.5-5.7) Ao Diam 3.32 cm (2.0-3.7) LVDs 3.80 cm (3.5-5.7) IVSd 1.40 cm (0.6-1.1) PWd 0.62 cm (0.6-1.1) EF (Teich) 53.20% FS 27.60% EDV (Teich) 132.40 mL ESV (Teich) 62.00 mL Other Information Study Quality: Fair Conclusion This is a limited study to evaluate for LV systolic function. Limited windows were obtained. Left ventricle appears moderately dilated (LVEDVi=89 ml/m2). Left ventricular systolic function is mildly reduced. There is moderate hypokinesis of the mid to distal inferior, inferoseptal, and inferolateral LV bray, including the inferapical region. LVEF is 40-45%. Electronically signed by : Carri Malloy MD 06/06/2023 17:33:41
== END ==
PROVIDERS: PCP Internal Medicine Adolescent Medicine; Visit Provider Nurse Practitioner Family
DX: I50.22 Chronic systolic (congestive) heart failure (principal)
CPT/HCPCS: 93308

== ENCOUNTER 2023-07-02 10:09 | Observation (INO) | payer OTHER, MEDICARE, BC, SELFPAY ==
[2023-07-02] VITALS (13 sets, daily range): BP systolic 113–141; BP diastolic 48–66; PULSE 57–70; RESP 12–22; TEMP 36.4–37.1; O2SAT 97–100; BMI 28.2; BMI 28.6
--- NOTE | 2023-07-02 10:10 | ECG_ITS ---
APPROVED REPORT Exam: Resting ECG HR:62 bpm ECG Measurements Heart Rate 62 AXES IL 327 P 93 QRSd 184 QRS 30 QT 438 T 89 QTc 442 Conclusion ELECTRONIC ATRIAL PACEMAKER LEFT BUNDLE BRANCH BLOCK [120+ ms QRS DURATION, 80+ ms Q/S IN V1/V2, 85+ ms R IN I/aVL/V5/V6] ABNORMAL ECG UNCONFIRMED REPORT Electronically signed by : Kelvin Mcallister MD 07/03/2023 08:31:38
--- NOTE | 2023-07-02 10:15 | XR_ITS ---
PROCEDURE INFORMATION: Exam: XR Pelvis Exam date and time: 07/02/2023 11:05 AM Age: 87 years old Clinical indication: Injury or trauma; Fall; Blunt trauma (contusions or hematomas); Right; Hip TECHNIQUE: Imaging protocol: Radiologic exam of the pelvis. Views: 1 or 2 view. 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 MRI is recommended if continued hip pain is present. Soft tissues: Unremarkable. 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 MRI is recommended if continued hip pain is present.
--- NOTE | 2023-07-02 10:15 | XR_ITS ---
PROCEDURE INFORMATION: Exam: XR Chest Exam date and time: 07/02/2023 11:05 AM Age: 87 years old Clinical indication: Injury or trauma; Fall; Blunt trauma (contusions or hematomas); Additional info: Cp, fall TECHNIQUE: Imaging protocol: Radiologic exam of the chest. Views: 1 view. COMPARISON: CR XR CHEST 2V 03/22/2023 5:19 AM FINDINGS: Tubes, catheters and devices: A left chest wall pacemaker is noted with leads in the right atrium and right ventricle. Lungs: Unremarkable. No consolidation. Pleural spaces: Unremarkable. No pleural effusion. No pneumothorax. Heart/Mediastinum: Unremarkable. No cardiomegaly. Vasculature: The aorta is calcified and tortuous. Bones/joints: Unremarkable. IMPRESSION: 1. No acute findings. 2. The aorta is calcified and tortuous. 3. A left chest wall pacemaker is noted with leads in the right atrium and right ventricle.
--- NOTE | 2023-07-02 10:18 | XR_ITS ---
PROCEDURE INFORMATION: Exam: XR Right Hand Exam date and time: 07/02/2023 11:05 AM Age: 87 years old Clinical indication: Injury or trauma; Fall; Blunt trauma (contusions or hematomas); Hand; Right; Additional info: Fall, hand pain in palm TECHNIQUE: Imaging protocol: Radiologic exam of the right hand. Views: 3 or more views. COMPARISON: US CA ARTERIAL PSEUDO RT UPPER 03/09/2023 2:05 PM FINDINGS: Bones/joints: Mild primary osteoarthritis affects the 1st carpometacarpal joint and 2nd metacarpophalangeal joint. Moderate primary osteoarthritis affects seen proximal interphalangeal and distal interphalangeal joints. Soft tissues: Normal. IMPRESSION: 1. Mild primary osteoarthritis affects the 1st carpometacarpal joint and 2nd metacarpophalangeal joint. 2. Moderate primary osteoarthritis affects seen proximal interphalangeal and distal interphalangeal joints.
[2023-07-02 10:22] LABS: Basophils % 0.5 % (0.1-2.0); Eosinophils # 0.1 K/mm3 (0.0-0.4); Eosinophils % 1.9 % (0.1-12.0); Hematocrit 30.6 % (42.0-52.0); Hemoglobin 9.7 g/dL (14.1-18.0); Lymphocytes # 1.5 K/mm3 (0.7-4.5); Lymphocytes % 21.1 % (10-50); Mean Corpuscular HGB Conc 31.8 g/dL (31.8-35.4); Mean Corpuscular Hemoglobin 22.4 pg (27.0-31.2); Mean Corpuscular Volume 70.5 fl (80-94); Mean Platelet Volume 7.3 fl (7.4-10.4); Monocytes # 0.6 K/mm3 (0.1-1.0); Monocytes % 8.1 % (1.7-9.3); Neutrophils # 4.8 K/mm3 (1.8-7.8); Neutrophils % 68.4 % (37.0-80.0); Platelet Count 347 K/mm3 (142-424); Red Blood Count 4.34 M/mm3 (4.60-6.20); Red Cell Distribution Width 17.2 % (11.5-17.5)
--- NOTE | 2023-07-02 10:23 | PC.NURSE ---
Dr. Tidwell at [facility] for pt eval
[2023-07-02 10:24] LABS: Chloride 108 mmol/L (98-107); Sodium 142 mmol/L (136-145)
[2023-07-02 10:25] LABS: Potassium 4.3 mmoL/L (3.5-5.1)
--- NOTE | 2023-07-02 10:25 | XR_ITS ---
PROCEDURE INFORMATION: Exam: XR Right Hip Exam date and time: 07/02/2023 11:05 AM Age: 87 years old Clinical indication: Injury or trauma; Fall; Blunt trauma (contusions or hematomas); Right; Hip and pelvic region; Additional info: Right hip pain after fall TECHNIQUE: Imaging protocol: Radiologic exam of the right hip. Views: 2 or 3 views hip with pelvis when performed. COMPARISON: CT ABDOMEN PELVIS WO/W CON 08/19/2019 10:08 AM FINDINGS: Bones/joints: No acute findings. Moderate primary osteoarthritis affects the right knee hip joint. MRI is recommended if continued hip pain is present. Soft tissues: Unremarkable. IMPRESSION: No acute findings. Moderate primary osteoarthritis affects the right knee hip joint. MRI is recommended if continued hip pain is present.
--- NOTE | 2023-07-02 10:25 | XR_ITS ---
PROCEDURE INFORMATION: Exam: XR Right Femur Exam date and time: 07/02/2023 11:05 AM Age: 87 years old Clinical indication: Injury or trauma; Fall; Blunt trauma; Hip; Right; Additional info: Fall, R hip pain TECHNIQUE: Imaging protocol: Radiologic exam of the right femur. Views: 2 views. COMPARISON: CT ABDOMEN PELVIS WO/W CON 08/19/2019 10:08 AM FINDINGS: Bones/joints: Unremarkable. No acute fracture. Soft tissues: Unremarkable. IMPRESSION: No acute findings.
--- NOTE | 2023-07-02 10:25 | CT_ITS ---
PROCEDURE INFORMATION: Exam: CT Cervical Spine Without Contrast Exam date and time: 07/02/2023 10:46 AM Age: 87 years old Clinical indication: Injury or trauma; Fall; Blunt trauma; Additional info: Fall, on ac, hit head TECHNIQUE: Imaging protocol: Computed tomography of the cervical spine without contrast. Radiation optimization: All CT scans at this facility use at least one of these dose optimization techniques: automated exposure control; mA and/or kV adjustment per patient size (includes targeted exams where dose is matched to clinical indication); or iterative reconstruction. REPORTING DATA: Count of CT and Cardiac NM exams in prior 12 months: This patient has received [address] and 0 known cardiac nuclear medicine studies in the 12 months prior to the current study. COMPARISON: CT SOFT TISSUE NECK W CON 07/19/2019 10:26 AM FINDINGS: Bones/joints: There is no evidence for acute cervical fracture. There is straightening of the cervical lordosis. Multilevel spondylotic changes noted with disc osteophyte, facet arthropathy and uncovertebral spurring. There is an 8 mm sclerotic focus noted in the left side of C6 unchanged from the prior study. Lungs: Lung apices are normal. Soft tissues: Heavy calcific plaque is noted about the right carotid bulb.. IMPRESSION: No evidence of acute cervical fracture.
--- NOTE | 2023-07-02 10:25 | CT_ITS ---
PROCEDURE INFORMATION: Exam: CT Head Without Contrast Exam date and time: 07/02/2023 10:38 AM Age: 87 years old Clinical indication: Injury or trauma; Fall; Blunt trauma (contusions or hematomas); Additional info: Fall, on ac, hit head TECHNIQUE: Imaging protocol: Computed tomography of the head without contrast. Radiation optimization: All CT scans at this facility use at least one of these dose optimization techniques: automated exposure control; mA and/or kV adjustment per patient size (includes targeted exams where dose is matched to clinical indication); or iterative reconstruction. REPORTING DATA: Count of CT and Cardiac NM exams in prior 12 months: This patient has received [address] and 0 known cardiac nuclear medicine studies in the 12 months prior to the current study. COMPARISON: CT HEAD/BRAIN WO CON 11/23/2020 11:37 AM FINDINGS: Brain: There is no evidence for mass effect, midline shift, acute hemorrhage, extra-axial fluid collection or acute lobar infarct. Patchy hemispheric white matter hypodensity most likely represents microvascular ischemic change. Chronic lacunar infarcts are noted in the basal ganglia. Cerebral ventricles: No ventriculomegaly. Paranasal sinuses: Visualized sinuses are unremarkable. No fluid levels. Mastoid air cells: Visualized mastoid air cells are well aerated. Bones/joints: Unremarkable. No acute fracture. Soft tissues: Unremarkable. IMPRESSION: No acute intracranial process.
[2023-07-02 10:27] LABS: Alanine Aminotransferase 22 U/L (12-78); Alkaline Phosphatase 95 U/L (38-126); Aspartate Amino Transferase 33 U/L (17-59); Bilirubin,Total 0.4 mg/dl (0.2-1.3); Blood Urea Nitrogen 30 mg/dl (9-20); Creatinine Clearance Estimated 45 mL/min (50-200); Estimated Glomerular Filt Rate 41 ml/min (>60); GFR (African American) 50 ML/MIN (>60)
[2023-07-02 10:28] LABS: Albumin Level 4.1 g/dl (3.5-5.0); Albumin/Globulin Ratio 1.4 (1.1-1.8); Anion Gap 12.3 mEq/L (5-15); Carbon Dioxide 26 mmol/L (22.0-30.0); Globulin 2.9 g/dL (1.3-3.2); Glucose 106 mg/dl (74-100)
[2023-07-02 10:38] LABS: NT Pro Brain Natriuretic Pep. 1930 pg/mL (0-450)
--- NOTE | 2023-07-02 10:38 | PC.NURSE ---
Pt gone to [facility] via stretcher
[2023-07-02 10:40] LABS: Troponin I 0.06 ng/ml (0.00-0.034)
[2023-07-02 10:45] LABS: T4 (Thyroxine) 8.6 ug/dl (5.53-11.0)
--- NOTE | 2023-07-02 11:03 | HMH.EDGENADL ---
Discharge Plan Disposition Patient Disposition: Admitted Chief Complaint: Chest Pain Prescriptions Prescriptions: No Action memantine 10 mg tablet 10 mg PO BID multivitamin [Multiple Vitamins] Tablet 1 tab PO DAILY albuterol sulfate [ProAir HFA] 90 mcg/actuation HFA aerosol inhaler 2 puff inhalation QID PRN (Reason: shortness of breath or wheezing) 90 Days Qty: 8.5 3RF escitalopram oxalate 10 mg tablet 10 mg PO DAILY atorvastatin 40 MG tablet 40 mg PO DAILY clopidogrel 75 MG tablet 75 mg PO DAILY vitamin B complex Capsule 1 cap PO DAILY calcium phos,dibas-vitamin D3 77-400 mg-unit Tablet 1 tab PO DAILY donepezil 5 mg Tablet 5 mg PO DAILY levothyroxine 50 MCG tablet 50 mcg PO DAILY rivaroxaban 20 MG tablet 20 mg PO QPMWITHMEAL pantoprazole [Protonix] 40 mg tablet,delayed release (DR/EC) 40 mg PO DAILY trazodone 50 mg tablet 50 mg PO HS Patient Comments: TAKE 1 TABLET BY MOUTH AT NIGHT digoxin 125 mcg (0.125 mg) tablet 0.125 mg PO DAILY Entresto 24-26 mg tablet 1 tab PO BID Qty: 60 0RF spironolactone [Aldactone] 25 mg tablet 25 mg PO DAILY Qty: 30 0RF bumetanide 1 mg tablet 1 mg PO DAILY Qty: 30 0RF Referrals Follow up/Referrals: Kelvin Mcallister MD [Primary Care Provider] - See instructions Clinical Impressions Clinical Impression: HALLIE (acute kidney injury), Non-ST elevation [place] (NSTEMI), Blunt head trauma, Fall Discharge ED Provider: Golden Tidwell General Adult HPI General Chief complaint: Chest Pain Stated complaint: FALL Time Seen by Provider: 07/02/23 10:13 Mode of Arrival: EMS Source of Information: Patient and Spouse Limitations: No Limitations Description of Symptoms (Recalled from ER Triage Doc. by RN): Pt reports began having chest pain when walking into the bathroom this morning, reports passed out and fell down. Pt states not having chest pain upon arrival to ED. Pt reports pain in R buttocks area and skin tear to R hand. History of Present Illness HPI narrative: 87-year-old male with history of hypertension, hyperlipidemia, CAD status post [place] with stenting x5, CHF, pacemaker placement with AICD, aortic valve replacement with mechanical valve currently taking Xarelto presenting with fall. Patient states that he was walking to the bathroom earlier this morning when he had chest pains, then fell to the floor. Did not hit his head, did not lose consciousness, hurting on right hand, right hip, right buttock. States it feels like his last heart attack. EMS was called and patient was brought here, not currently having symptoms on arrival to the emergency department. Denies shortness of breath, diaphoresis, nausea or vomiting during this episode. Related Data Home Medications Medication Instructions Recorded Confirmed levothyroxine 50 mcg tablet 50 mcg PO DAILY hypothyroidism 10/14/20 05/09/23 atorvastatin 40 mg tablet 40 mg PO DAILY cholesterol 11/24/20 05/09/23 clopidogrel 75 mg tablet 75 mg PO DAILY antiplatelet/ 11/24/20 05/09/23 Atrial Fib escitalopram oxalate 10 mg tablet 10 mg PO DAILY Mood 04/26/21 05/09/23 rivaroxaban 20 mg tablet 20 mg PO QPMWITHMEAL Blood 06/25/21 05/09/23 thinner/ Atrial Fib memantine 10 mg tablet 10 mg PO BID memory 07/29/22 05/09/23 pantoprazole 40 mg tablet,delayed 40 mg PO DAILY Acid Reflux 08/16/22 05/09/23 release (Protonix) calcium phosphate,dibasic 77 1 tab PO DAILY Supplement 02/28/23 05/09/23 mg-vitamin D3 400 unit tablet vitamin B complex 1 cap PO DAILY Supplement 02/28/23 05/09/23 donepezil 5 mg tablet 5 mg PO DAILY Memory 03/01/23 05/09/23 multivitamin (Multiple Vitamins 1 tab PO DAILY Supplement 03/09/23 05/09/23 tablet) trazodone 50 mg tablet 50 mg PO HS Sleep 03/19/23 05/09/23 digoxin 125 mcg (0.125 mg) tablet 0.125 mg PO DAILY heart rate 03/20/23 05/09/23 Previous Rx's Medication Instructions Recorded bumetanide 1 mg
--- NOTE | 2023-07-02 11:09 | ECG_ITS ---
APPROVED REPORT Exam: Resting ECG HR:60 bpm ECG Measurements Heart Rate 60 AXES MD 345 P -11 QRSd 176 QRS 18 QT 463 T 80 QTc 463 Conclusion ELECTRONIC ATRIAL PACEMAKER LEFT BUNDLE BRANCH BLOCK [120+ ms QRS DURATION, 80+ ms Q/S IN V1/V2, 85+ ms R IN I/aVL/V5/V6] ABNORMAL ECG UNCONFIRMED REPORT Electronically signed by : Kelvin Mcallister MD 07/04/2023 14:48:50
--- NOTE | 2023-07-02 11:34 | PC.NURSE ---
Pt provided with warm blanket. No other needs voiced. Call light within reach.
--- NOTE | 2023-07-02 12:41 | PC.NURSE ---
ER MD mcclelland speaking with hospitalist
--- NOTE | 2023-07-02 12:46 | PC.NURSE ---
notified data warehouse administrator of admission
--- NOTE | 2023-07-02 13:11 | HMH.PHAINT1 ---
Pharmacy Intervention Comments: MEDICATION RECONCILIATION COMPLETED ON PATIENT USING EXTERNAL FILL HISTORY FROM PHARMACY. -VIVIANE ZAMORA, LUZD
--- NOTE | 2023-07-02 13:22 | PC.NURSE ---
LAB COMING TO DRAW TROP
--- NOTE | 2023-07-02 13:23 | PC.NURSE ---
waiting generation manager back from second floor to give report.
--- NOTE | 2023-07-02 13:41 | PC.NURSE ---
report called to jevonrn on second floor at this time
[2023-07-02 14:02] LABS: Troponin I 0.06 ng/ml (0.00-0.034)
--- NOTE | 2023-07-02 16:54 | PC.NURSE ---
Pt A&O x4. Resting in bed. Home meds placed in drawer. Will pass onto satin finisher nurse to remind to give to pharmacy in AM. Pt has skin tear to (R) hand see pic. DSG placed. Pt has c/o discomfort to buttocks due to fall at home. Pt placed on heparin per MD. Troponins elevated. MD aware. Pt denies any CP has had some soa at times. Remains upper 90s on 1L NC. Pt is on home O2 up to 2L NC. Call light within reach. Safety measures in place.
[2023-07-02 17:00] LABS: Troponin I 0.08 ng/ml (0.00-0.034)
--- NOTE | 2023-07-02 17:10 | PC.NURSE ---
Skin tear to (R) hand
--- NOTE | 2023-07-02 18:24 | PC.NURSE ---
MD contacted for pt concerns about home medications. Pt Asking about night time meds. sates he will be up to round.
--- NOTE | 2023-07-02 18:48 | EXP.HP ---
History of Present Illness *Admission Date: 07/02/23 *Reason for visit:: chest pain *History of present illness: Patient is a 87-year-old man with multiple history of CAD CHF with reduced ejection fraction, CKD, history of renal cancer who presented to hospital due to chest pain. According to the patient he had chest pain while walking to the bathroom, he also fell down and the. Passed out patient he has history of coronary stenting, is followed up with Dr. Joe and his seasoning sprayer. Patient denies fever chills diarrhea constipation dysuria lightheadedness dizziness. [facility] Disclaimer: The information contained in this section may have been updated after the patient was seen, as this information can be updated by other users. Medical History Atrial fibrillation CAD (coronary artery disease) Daytime somnolence Dyspnea Dyspnea on exertion Essential hypertension Hernia History of heart attack History of pacemaker Hyperlipidemia Hypertension Hypothyroid Pneumonia Renal cancer Smoking greater than 25 pack years Symptomatic bradycardia Surgical History History of permanent cardiac pacemaker placement Hx of kidney removal Status post coronary artery stent placement Family History Father Family history of cancer Son Family history of cancer Social History (Updated 07/02/23 @ 14:43 by Viry Reardon RN) Smoking Status: Former smoker alcohol intake: never substance use type: denies use current occupational status: retired Travel in the last 8 weeks: None household members: spouse housing: house caffeine: Yes Review of Systems Review of Systems Review of systems (narrative): as per HPI Meds Home Medications and Allergies Home Medications Medication Instructions Recorded Confirmed Type levothyroxine 50 mcg tablet 50 mcg PO DAILY hypothyroidism 10/14/20 07/02/23 History atorvastatin 40 mg tablet 40 mg PO DAILY cholesterol 11/24/20 07/02/23 History clopidogrel 75 mg tablet 75 mg PO DAILY Platelet Inhibitor 11/24/20 07/02/23 History escitalopram oxalate 10 mg tablet 10 mg PO DAILY Mood 04/26/21 07/02/23 History rivaroxaban 20 mg tablet 20 mg PO QPMWITHMEAL Blood 06/25/21 07/02/23 History thinner/ Atrial Fib memantine 10 mg tablet 10 mg PO BID memory 07/29/22 07/02/23 History pantoprazole 40 mg tablet,delayed 40 mg PO BID Acid Reflux 08/16/22 07/02/23 History release (Protonix) vitamin B complex 1 cap PO DAILY Supplement 02/28/23 07/02/23 History donepezil 5 mg tablet 5 mg PO DAILY Memory 03/01/23 07/02/23 History multivitamin (Multiple Vitamins 1 tab PO DAILY Supplement 03/09/23 07/02/23 History tablet) trazodone 50 mg tablet 150 mg PO HS Sleep 03/19/23 07/02/23 History digoxin 125 mcg (0.125 mg) tablet 0.125 mg PO DAILY heart rate 03/20/23 07/02/23 History bumetanide 1 mg tablet 1 mg PO DAILY Fluid 07/02/23 07/02/23 History sacubitril 24 mg-valsartan 26 mg 1 tab PO HS Heart Failure 07/02/23 07/02/23 History tablet (Entresto) spironolactone 25 mg tablet 25 mg PO DAILY Fluid 07/02/23 07/02/23 History (Aldactone) New Prescriptions to Start Prescriptions: Allergies Allergy/AdvReac Type Severity Reaction Status Date / Time No Known Allergies Allergy Verified 05/09/23 10:45 Exam Data for Last 24 hours Vital signs and Labs for Last 24 Hours: Temp Pulse Resp BP Pulse Ox O2 Del Method O2 Flow Rate 97.8 F 67 18 113/48 L 97 Nasal Cannula 1 07/02/23 16:00 07/02/23 16:02 07/02/23 16:00 07/02/23 16:00 07/02/23 16:00 07/02/23 18:30 07/02/23 18:30 Laboratory Results - last 24 hr 07/02/23 10:10: WBC 7.0, RBC 4.34 L, Hgb 9.7 L, Hct 30.6 L, MCV 70.5 L, MCH 22.4 L, MCHC 31.8, RDW 17.2, Plt Count 347, MPV 7.3 L, Neut % (Auto) 68.4, Lymph % (Auto) 21.1, [place] % (Auto) 8.1, Eos % (Auto) 1.9, Bas
--- NOTE | 2023-07-02 18:53 | PC.NURSE ---
Clarified with that pt is to have plavix in addition to Heparin gtt.
[2023-07-02 19:24] LABS: Troponin I 0.08 ng/ml (0.00-0.034)
[2023-07-02 19:30] LABS: PTT Heparin (inpatient only) 24.5 Seconds (23.6-34.0)
[2023-07-03] VITALS: BP 130/54; PULSE 60; RESP 18; TEMP 37; O2SAT 100
[2023-07-03 00:41] LABS: Troponin I 0.08 ng/ml (0.00-0.034)
[2023-07-03 02:18] LABS: PTT Heparin (inpatient only) 51.5 Seconds (23.6-34.0)
--- NOTE | 2023-07-03 03:34 | PC.NURSE ---
pt is alert and oriented x4, currently on 1L of oxygen and sats at 100%. Pt is currently on a heparin drip @ 1000 units a hour. Pt most recent PTT @ 0200 was 51.5. Contacted pharmacy and pt remains on 1000 units a hr until next draw@ 0800. Pt denies pain thus far and has rested for the most part of the shift.
[2023-07-03 04:00] VITALS: BP 133/58; PULSE 60; RESP 18; TEMP 36.5; O2SAT 100; BMI 28.6
--- NOTE | 2023-07-03 06:39 | CA_ITS ---
APPROVED REPORT EXAM: Comprehensive 2D, Doppler, and color-flow Echocardiogram County Program Technician: Yesica Merrill RDCS Ht: 6 ft 1 in Wt: 216lbs BSA: 2.22 BP: 113/50 mmHg Indications: CP,NSTEMI,CAD,PP 2D Dimensions LVOT 1.92 cm (M/F) 1.5-2.5 M-Mode Dimensions RVDd 2.76 cm (0.9-2.6) LA Diam 4.23 cm (1.9-4.0) LVDd 6.59 cm (3.5-5.7) Ao Diam 3.12 cm (2.0-3.7) LVDs 5.03 cm (3.5-5.7) IVSd 1.16 cm (0.6-1.1) PWd 0.99 cm (0.6-1.1) EF (Teich) 46.20% FS 23.70% EDV (Teich) 222.80 mL ESV (Teich) 119.90 mL LV Diastology E Decel Time 140.00 (160-240 msec) E/A Ratio 1.6 MED E' 4.30 (< 7 cm/sec) E'/MED E' Ratio 24.40 (>14) LAT E' 5.60 (<10 cm/sec) E/LAT E' Ratio 18.73 (>14) Aortic Valve AI PHT 345.00 ms Mitral Valve MV E Max Harley. 105.00 (40-130 cm/s) MV A Velocity 64.00 (40-130 cm/s) E/A Ratio 1.63 MV Decel. Time 140.00 (160-240 ms) MV PHT 41.00 ms Left Ventricle Left ventricle is mildly dilated (LVEDVi 85 ml/m2). The left ventricular systolic function is low normal. The left ventricular ejection fraction is within the low normal range. There is increased LV wall thickness. There is borderline hypokinesis present. Grade 2 diastolic dysfunction is present. LVEF is 50%. Right Ventricle Right ventricle is mildly to moderately dilated. The right ventricular systolic function is normal. Atria The left atrium is severely dilated. The right atrium size is moderately dilated. Aortic Valve The aortic valve is mildly thickened. There is no aortic valvular stenosis. Mild aortic regurgitation. Mitral Valve The mitral valve leaflets are mildly thickened. No evidence of mitral valve stenosis. Mild mitral regurgitation. Mitral jet is centrally directed. Tricuspid Valve The tricuspid valve leaflets are thin and pliable. Trace tricuspid regurgitation. There is insufficient TR jet to estimate RVSP. Pulmonic Valve The pulmonary valve is normal in structure. Trace pulmonic regurgitation. Great Vessels The aortic root is normal in size. The ascending aorta is normal in size. The IVC is not well visualized. Pericardium There is no pericardial effusion. Other Information Study Quality: Fair Conclusion Mildly dilated LV with low normal LV systolic function. Mild to moderate RV dilation. Biatrial dilatation. Mild AI, MR. Electronically signed by : Carri Malloy MD 07/03/2023 20:50:38
[2023-07-03 06:46] LABS: Chloride 108 mmol/L (98-107); Potassium 4.1 mmoL/L (3.5-5.1); Sodium 139 mmol/L (136-145)
[2023-07-03 06:49] LABS: Anion Gap 10.1 mEq/L (5-15); Blood Urea Nitrogen 26 mg/dl (9-20); Calcium 8.3 mg/dl (8.4-10.2); Carbon Dioxide 25 mmol/L (22.0-30.0); Creatinine Clearance Estimated 56 mL/min (50-200); Estimated Glomerular Filt Rate 52 ml/min (>60); GFR (African American) 63 ML/MIN (>60); Glucose 98 mg/dl (74-100)
[2023-07-03 07:09] LABS: Basophils % 0.3 % (0.1-2.0); Eosinophils # 0.2 K/mm3 (0.0-0.4); Hematocrit 26.1 % (42.0-52.0); Lymphocytes # 1.2 K/mm3 (0.7-4.5); Mean Corpuscular HGB Conc 32.1 g/dL (31.8-35.4); Mean Corpuscular Hemoglobin 22.9 pg (27.0-31.2); Mean Corpuscular Volume 71.5 fl (80-94); Mean Platelet Volume 6.9 fl (7.4-10.4); Monocytes # 0.6 K/mm3 (0.1-1.0); Monocytes % 10.6 % (1.7-9.3); Neutrophils # 3.8 K/mm3 (1.8-7.8); Platelet Count 287 K/mm3 (142-424); Red Blood Count 3.65 M/mm3 (4.60-6.20); Red Cell Distribution Width 17.4 % (11.5-17.5); White Blood Count 5.9 K/mm3 (4.8-10.8)
[2023-07-03 07:20] VITALS: BP 147/62; PULSE 60; RESP 18; TEMP 36.6; O2SAT 97
[2023-07-03 08:00] VITALS: PULSE 60
[2023-07-03 08:18] LABS: Hemoglobin 8.3 g/dL (14.1-18.0)
[2023-07-03 08:31] VITALS: PULSE 61
[2023-07-03 08:43] LABS: PTT Heparin (inpatient only) 50.4 Seconds (23.6-34.0)
--- NOTE | 2023-07-03 08:45 | HMH.PHAHEP ---
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) Chronic systolic CHF (congestive heart failure), NYHA class 2 (Acute) HFrEF (heart failure with reduced ejection fraction) (Acute) Diastolic dysfunction (Acute) HALLIE (acute kidney injury) (Acute) Non-ST elevation [place] (NSTEMI) (Acute) Blunt head trauma (Acute) Fall (Acute) Atrial fibrillation (Chronic) CVA?: No Bleeding problem?: No Kidney disease?: No [place]?: Yes Desired PTT range:: 50-75 seconds Labs Anticoagulation Lab Results:: 07/02/23 07/03/23 10:10 06:09 Hgb 9.7 L 8.3 L D Hct 30.6 L 26.1 L Plt Count 347 287 Monitoring Dose Monitor 1: Date: 07/02/23 Time: 18:23 PTT Result:: 24.5 Infusion Rate:: HEPARIN 20 ML/HR (1000 UNITS/HR), HEPARIN BOLUS 4000 UNITS Dose Monitor 2: Date: 07/03/23 Time: 01:55 PTT Result:: 51.5 Infusion Rate:: HEPARIN 20 ML/HR Core Measures Is INR > or = 2 at discharge?: No Most Recent Labs:: Laboratory Results - last 24 hr 07/02/23 10:10: WBC 7.0, RBC 4.34 L, Hgb 9.7 L, Hct 30.6 L, MCV 70.5 L, MCH 22.4 L, MCHC 31.8, RDW 17.2, Plt Count 347, MPV 7.3 L, Neut % (Auto) 68.4, Lymph % (Auto) 21.1, [place] % (Auto) 8.1, Eos % (Auto) 1.9, Baso % (Auto) 0.5, Neut # (Auto) 4.8, Lymph # (Auto) 1.5, [place] # (Auto) 0.6, Eos # (Auto) 0.1, Baso # (Auto) 0.0, Sodium 142, Potassium 4.3, Chloride 108 H, Carbon Dioxide 26, Anion Gap 12.3, BUN 30 H, Creatinine 1.60 H, Estimated Creat Clear 45, Estimated GFR 41 L, Est GFR ( Amer) 50 L, Glucose 106 H, Calcium 9.0, Magnesium 2.0, Total Bilirubin 0.4, AST 33, ALT 22, Alkaline Phosphatase 95, Troponin I 0.06 H, NT-Pro-B Natriuret Pep 1930 H, Total Protein 7.0, Albumin 4.1, Globulin 2.9, Albumin/Globulin Ratio 1.4, TSH 3.00, Thyroxine (T4) 8.6 07/02/23 13:31: Troponin I 0.06 H 07/02/23 16:15: Troponin I 0.08 H 07/02/23 18:23: APTT 24.5, Troponin I 0.08 H 07/03/23 00:15: Troponin I 0.08 H 07/03/23 01:55: APTT 51.5 H* 07/03/23 06:09: WBC 5.9, RBC 3.65 L, Hgb 8.3 L D, Hct 26.1 L, MCV 71.5 L, MCH 22.9 L, MCHC 32.1, RDW 17.4, Plt Count 287, MPV 6.9 L, Neut % (Auto) 64.0, Lymph % (Auto) 21.0, [place] % (Auto) 10.6 H, Eos % (Auto) 4.0, Baso % (Auto) 0.3, Neut # (Auto) 3.8, Lymph # (Auto) 1.2, [place] # (Auto) 0.6, Eos # (Auto) 0.2, Baso # (Auto) 0.0, Sodium 139, Potassium 4.1, Chloride 108 H, Carbon Dioxide 25, Anion Gap 10.1, BUN 26 H, Creatinine 1.30 H, Estimated Creat Clear 56, Estimated GFR 52 L, Est GFR ( Amer) 63 D, Glucose 98, Calcium 8.3 L If INR was < than 2.0 why was therapy stopped?: XARELTO STARTED Were Heparin and Warfarin started on the same day?: No If not, why?: XARELTO
--- NOTE | 2023-07-03 09:32 | EXP.CARD.CON ---
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 Patient reports yesterday he got up to go to the bathroom to clean up and when he got to the doorway he developed midsternal chest pressure, nonradiating and some shortness of breath. Reports he felt weak and fell to the floor. Reports pain only lasted a few minutes and resolved.He denies any LOC or head injury. Patient reports his found him and brought him to the emergency department. On presentation to ER EKG showed an electrical atrial pacemaker rate 62, left bundle branch block without acute ischemic changes noted. Initial labs as follow: Creatinine 1.6, troponin 0.06, hemoglobin 9.7, sodium 142, potassium 4.3, BNP 1930(baseline 7330). CT head and cervical spine were negative for acute injury. Chest x-ray was negative for acute process. Pelvis, hand, femur, and hip x-rays were all negative for acute fracture. Patient was started on heparin drip and admitted for fall, HALLIE, NSTEMI and for cardiology evaluation. Patient resting comfortably, denies any ongoing chest pain. Preliminary echo report shows an estimated EF greater than 50% with mild to moderate MR. [facility] Disclaimer: The information contained in this section may have been updated after the patient was seen, as this information can be updated by other users. Medical History Atrial fibrillation CAD (coronary artery disease) Daytime somnolence Dyspnea Dyspnea on exertion Essential hypertension Hernia History of heart attack History of pacemaker Hyperlipidemia Hypertension Hypothyroid Pneumonia Renal cancer Smoking greater than 25 pack years Symptomatic bradycardia Surgical History History of permanent cardiac pacemaker placement Hx of kidney removal Status post coronary artery stent placement Family History Father Family history of cancer Son Family history of cancer Social History (Updated 07/02/23 @ 14:43 by Viry Reardon RN) Smoking Status: Former smoker alcohol intake: never substance use type: denies use current occupational status: retired Travel in the last 8 weeks: None household members: spouse housing: house caffeine: Yes Review of Systems Review of Systems Review of systems:: pertinent systems reviewed and negative unless documented below Constitutional Constitutional: Reports system reviewed and no additional complaints, except as documented *Cardiovascular Cardiovascular: Reports system reviewed and no additional complaints, except as documented, Reports chest pain and Reports dyspnea *Respiratory Respiratory: Reports system reviewed and no additional complaints, except as documented and Reports dyspnea *Gastrointestinal Gastrointestinal: Reports system reviewed and no additional complaints, except as documented *Neurologic Neurologic: Reports system reviewed and no additional complaints, except as documented and Denies confusion Psychiatric Psychiatric: Reports system reviewed and no additional complaints, except as documented and Denies confusion Exam Data for Last 24 hours Vital signs and Labs for Last 24 Hours: Temp Pulse Resp BP Pulse Ox O2 Del Method O2 Flow Rate 97.9 F 61 18 147/62 H 97 Room Air 1 07/03/23 07:20 07/03/23 08:31 07/03/23 07:20 07/03/23 07:20 07/03/23
[2023-07-03 12:00] VITALS: PULSE 60
--- NOTE | 2023-07-03 14:47 | EXP.DC.SUM ---
General Admission date:: 07/02/23 Discharge date: 07/03/23 HPI HPI HPI: Patient is a 87-year-old man with multiple history of CAD CHF with reduced ejection fraction, CKD, history of renal cancer who presented to hospital due to chest pain. According to the patient he had chest pain while walking to the bathroom, he also fell down and the. Passed out patient he has history of coronary stenting, is followed up with Dr. Joe and his [employer] business development officer. Patient denies fever chills diarrhea constipation dysuria lightheadedness dizziness. Hospital Course Hospital Course Hospital Course: Patient was seen and evaluated at the bedside on the day of discharge. Patient is stable for discharge. Patient wishes to be discharged. All patient questions were answered and patient was given time to ask questions. Patient was discharged in stable condition. Patient is a 87-year-old man with multiple history of CAD CHF with reduced ejection fraction, CKD, history of renal cancer who presented to hospital due to chest pain. According to the patient he had chest pain while walking to the bathroom, he also fell down and the. Passed out patient he has history of coronary stenting, is follows up with Dr. Joe and his [employer] business development officer. Chest pain suspect NSTEMI History of CAD status post stenting CHF reduced ejection fraction AHLLIE on CKD History of atrial fibrillation on Xarelto Hypertension Hypothyroidism Hyperlipidemia Patient is stable for discharge, cleared for discharge per cardiology, new prescriptions sent per cardiology recommendations, patient to f/u with his sba business development officer as OP, patient agreed with the discharge plan Exam Data for Last 24 hours Vital signs and Labs for Last 24 Hours: Temp Pulse Resp BP Pulse Ox O2 Del Method O2 Flow Rate 97.9 F 60 18 147/62 H 97 Room Air 1 07/03/23 07:20 07/03/23 12:00 07/03/23 07:20 07/03/23 07:20 07/03/23 07:20 07/03/23 07:20 07/03/23 03:00 Laboratory Results - last 24 hr 07/02/23 16:15: Troponin I 0.08 H 07/02/23 18:23: APTT 24.5, Troponin I 0.08 H 07/03/23 00:15: Troponin I 0.08 H 07/03/23 01:55: APTT 51.5 H* 07/03/23 06:09: WBC 5.9, RBC 3.65 L, Hgb 8.3 L D, Hct 26.1 L, MCV 71.5 L, MCH 22.9 L, MCHC 32.1, RDW 17.4, Plt Count 287, MPV 6.9 L, Neut % (Auto) 64.0, Lymph % (Auto) 21.0, [place] % (Auto) 10.6 H, Eos % (Auto) 4.0, Baso % (Auto) 0.3, Neut # (Auto) 3.8, Lymph # (Auto) 1.2, [place] # (Auto) 0.6, Eos # (Auto) 0.2, Baso # (Auto) 0.0, Sodium 139, Potassium 4.1, Chloride 108 H, Carbon Dioxide 25, Anion Gap 10.1, BUN 26 H, Creatinine 1.30 H, Estimated Creat Clear 56, Estimated GFR 52 L, Est GFR ( Amer) 63 D, Glucose 98, Calcium 8.3 L 07/03/23 08:18: APTT 50.4 H* I & O for Last 24 hours: Intake & Output 06/30/23 07/01/23 07/02/23 07/03/23 23:59 23:59 23:59 23:59 Intake Total 725 / 845 590 / 590 Output Total 225 / 225 300 / 300 Balance 500 / 620 290 / 290 Weight 98.146 kg 98.2 kg Constitutional Constitutional: no acute distress *Routine HEENT Exam Head: Present normocephalic Eye: Present EOMI and PERRL ENT: Present mucous membranes moist *Routine Neck Exam Neck: Present supple; Absent lymphadenopathy *Routine Respiratory Exam Respiratory: Present CTA bilaterally *Routine Cardiovascular Exam Cardiovascular: Present RRR *Routine Abdominal Exam Abdominal: Present soft and normoactive bowel sounds; Absent tenderness *Routine Extremities Exam Extremities: Absent cyanosis, clubbing or edema *Routine Skin Exam Skin: Present warm; Absent rash *Routine Neurological Exam Neurological: Present alert and oriented X3 Results Data Completed and Pending Labs on day of discharge: Labs from last 24 hours 07/03/23 07/03/23 07/03/23 08:18 06:09 01:55 WBC 5.9 RBC 3.65 L Hgb 8.3 L D Hct 26.1 L MCV 71.5 L MCH 22.9 L MCHC 32.1 RDW 17.4 Plt Count 287 MPV 6.9 L Neut % (Auto) 64.0 Lymph % (Auto) 21.0 [place] % (Auto
--- NOTE | 2023-07-05 14:58 | CARE MANAGER ---
CM called patient and spoke with his daughter, Galina in regards to recent discharge. Galina stated that patient is doing well and was aware of f/u appts. Galina had some concerns related to discharge, and I have emailed Loni Melgoza with the concerns.
== END 2023-07-03 12:52 | disposition home or self-care (01) ==
LOC: ER 12:57 → 2ND 13:29
PROVIDERS: Admitting Provider Internal Medicine; Emergency Provider Emergency Medicine; PCP Internal Medicine Adolescent Medicine; Visit Provider Internal Medicine
DX: I25.10 Atherosclerotic heart disease of native coronary artery without angina pectoris (principal); I50.22 Chronic systolic (congestive) heart failure; N17.9 Acute kidney failure, unspecified; I21.4 Non-ST elevation (NSTEMI) myocardial infarction; I48.20 Chronic atrial fibrillation, unspecified; I25.5 Ischemic cardiomyopathy; Z79.01 Long term (current) use of anticoagulants; Z95.0 Presence of cardiac pacemaker; I13.0 Hypertensive heart and chronic kidney disease with heart failure and stage 1 through stage 4 chronic kidney disease, or unspecified chronic kidney disease; N18.9 Chronic kidney disease, unspecified; Z79.899 Other long term (current) drug therapy; Z90.5 Acquired absence of kidney; Z85.528 Personal history of other malignant neoplasm of kidney
CPT/HCPCS: 36415; 70450; 71045; 72125; 72170; 73130; 73502; 73552; 80048; 80053; 83735; 83880; 84436; 84443; 84484; 85025; 85730; 93005; 93306; 99285; G0378

== ENCOUNTER → 2023-07-08 11:32 | Outpatient (CLI) | payer OTHER, MEDICARE, BC, SELFPAY ==
[2023-07-08 12:29] LABS: Basophils % 0.7 % (0.1-2.0); Eosinophils % 0.5 % (0.1-12.0); Hematocrit 29.1 % (42.0-52.0); Hemoglobin 9.3 g/dL (14.1-18.0); Lymphocytes # 1.2 K/mm3 (0.7-4.5); Lymphocytes % 21.8 % (10-50); Mean Corpuscular HGB Conc 31.9 g/dL (31.8-35.4); Mean Corpuscular Hemoglobin 22.7 pg (27.0-31.2); Mean Platelet Volume 7.6 fl (7.4-10.4); Monocytes # 0.8 K/mm3 (0.1-1.0); Monocytes % 15.5 % (1.7-9.3); Neutrophils # 3.3 K/mm3 (1.8-7.8); Neutrophils % 61.5 % (37.0-80.0); Platelet Count 320 K/mm3 (142-424); Red Blood Count 4.11 M/mm3 (4.60-6.20); Red Cell Distribution Width 17.6 % (11.5-17.5); White Blood Count 5.3 K/mm3 (4.8-10.8)
[2023-07-08 13:22] LABS: Alanine Aminotransferase 27 U/L (12-78); Albumin Level 4.1 g/dl (3.5-5.0); Albumin/Globulin Ratio 1.5 (1.1-1.8); Alkaline Phosphatase 93 U/L (38-126); Anion Gap 16.4 mEq/L (5-15); Aspartate Amino Transferase 38 U/L (17-59); Bilirubin,Total 0.4 mg/dl (0.2-1.3); Blood Urea Nitrogen 28 mg/dl (9-20); Calcium 8.7 mg/dl (8.4-10.2); Carbon Dioxide 25 mmol/L (22.0-30.0); Chloride 103 mmol/L (98-107); Estimated Glomerular Filt Rate 41 ml/min (>60); GFR (African American) 50 ML/MIN (>60); Globulin 2.8 g/dL (1.3-3.2); Glucose 106 mg/dl (74-100); Potassium 4.4 mmoL/L (3.5-5.1); Sodium 140 mmol/L (136-145); Total Protein,Serum 6.9 g/dl (6.3-8.2)
== END ==
PROVIDERS: PCP Internal Medicine Adolescent Medicine; Visit Provider Internal Medicine Adolescent Medicine
DX: I50.22 Chronic systolic (congestive) heart failure (principal)
CPT/HCPCS: 36415; 80053; 85025

== ENCOUNTER 2023-11-25 10:07 | Outpatient (CLI) | payer OTHER, MEDICARE, BC, SELFPAY ==
[2023-11-25 11:01] LABS: Basophils % 0.6 % (0.1-2.0); Eosinophils # 0.1 K/mm3 (0.0-0.4); Eosinophils % 1.4 % (0.1-12.0); Hematocrit 27.7 % (42.0-52.0); Hemoglobin 7.4 g/dL (14.1-18.0); Lymphocytes # 0.8 K/mm3 (0.7-4.5); Lymphocytes % 11.3 % (10-50); Mean Corpuscular HGB Conc 26.8 g/dL (31.8-35.4); Mean Corpuscular Hemoglobin 17.4 pg (27.0-31.2); Mean Corpuscular Volume 64.9 fl (80-94); Mean Platelet Volume 8.3 fl (7.4-10.4); Monocytes # 0.7 K/mm3 (0.1-1.0); Monocytes % 9.9 % (1.7-9.3); Neutrophils # 5.5 K/mm3 (1.8-7.8); Neutrophils % 76.8 % (37.0-80.0); Platelet Count 355 K/mm3 (142-424); Red Blood Count 4.27 M/mm3 (4.60-6.20); Red Cell Distribution Width 20.1 % (11.5-17.5); White Blood Count 7.1 K/mm3 (4.8-10.8)
[2023-11-25 12:28] LABS: 25-OH Vitamin D, Total 93.2 ng/mL (30-100)
[2023-11-25 14:10] LABS: Albumin Level 3.9 g/dl (3.5-5.0); Albumin/Globulin Ratio 1.7 (1.1-1.8); Alkaline Phosphatase 83 U/L (38-126); Anion Gap 13.1 mEq/L (5-15); Bilirubin,Total 0.9 mg/dl (0.2-1.3); Blood Urea Nitrogen 21 mg/dl (9-20); Calcium 9.2 mg/dl (8.4-10.2); Carbon Dioxide 22 mmol/L (22.0-30.0); Chloride 111 mmol/L (98-107); Chol/HDL Ratio 2.5 (1-3.5); Cholesterol 86 mg/dl (140-200); Estimated Glomerular Filt Rate 48 ml/min (>60); GFR (African American) 58 ML/MIN (>60); Globulin 2.3 g/dL (1.3-3.2); Glucose 114 mg/dl (74-100); HDL Cholesterol 35 mg/dl (40-60); Potassium 4.1 mmoL/L (3.5-5.1); Sodium 142 mmol/L (136-145); Total Protein,Serum 6.2 g/dl (6.3-8.2); Triglycerides 49 mg/dl (30-150); VLDL Cholesterol 10 mg/dL (0-40)
[2023-11-25 14:13] LABS: Alanine Aminotransferase 19 U/L (12-78); Aspartate Amino Transferase 25 U/L (17-59)
[2023-11-25 14:20] LABS: Direct LDL Cholesterol 45.81 mg/dL (100-129)
[2023-11-25 14:39] LABS: Thyroid Stimulating Hormone 2.39 uIU/mL (0.465-4.68)
[2023-11-25 14:58] LABS: Vitamin B12 902 pg/mL (239-931)
[2023-11-28 21:40] LABS: QuantiFERON-TB Gold Plus Negative (Negative)
== END 2023-11-25 23:59 ==
LOC: LAB 10:09
PROVIDERS: PCP Internal Medicine Adolescent Medicine; Visit Provider Internal Medicine Adolescent Medicine
DX: I25.10 Atherosclerotic heart disease of native coronary artery without angina pectoris (principal); I50.42 Chronic combined systolic (congestive) and diastolic (congestive) heart failure; E03.9 Hypothyroidism, unspecified; G60.9 Hereditary and idiopathic neuropathy, unspecified; F03.B0 Unspecified dementia, moderate, without behavioral disturbance, psychotic disturbance, mood disturbance, and anxiety; E66.9 Obesity, unspecified; Z68.29 Body mass index [BMI] 29.0-29.9, adult; Z11.1 Encounter for screening for respiratory tuberculosis; Z85.528 Personal history of other malignant neoplasm of kidney
CPT/HCPCS: 36415; 80053; 80061; 82306; 82607; 84443; 85025; 86480